=== PATIENT | female | born 1975 | race Caucasian/White ===

== ENCOUNTER 2020-10-18 10:49 | Emergency (ER) | payer OTHER, SELFPAY ==
--- NOTE | ~2020-10-18 | CT_ITS ---
EXAMINATION: CT abdomen pelvis w con EXAM DATE: 10/18/2020 11:48 INDICATION: Left flank pain. TECHNIQUE: Spiral CT of the abdomen and pelvis was performed following intravenous injection of 100 m L Omnipaque 350. Axial, coronal and sagittal images were reviewed. The dose-length product (DLP) fo r this examination was 955.88 mGy-cm. The exposure was tailored according to patient size (auto mA e xposure control), and iterative reconstruction (ASIR) was used as additional dose reduction technique . Comparison is made to prior examination from 06/14/2015. FINDINGS: Small liver cysts, largest in the left liver lobe lateral segment at 2.4 cm. There are cho lecystectomy clips. Portal and splenic veins are patent. Kidneys enhance symmetrically. There is n o hydronephrosis. There is IUD which appears to be centrally located within the endometrium, expect ed position. The bladder is unremarkable. There is no retroperitoneal or pelvic lymphadenopathy. The appendix is normal. The stomach and small bowel are unremarkable. There is expected amount of c olonic stool. No free intraperitoneal gas. The heart is normal in size. There are no pericardial or pleural effusions. The lung bases are unremarkable. There are no osteoblastic or osteolytic les ions identified. IMPRESSION: 1. No acute intra-abdominal findings. Reviewed, dictated and finalized at location B. [facility]INGER
--- NOTE | ~2020-10-18 | XR_ITS ---
EXAMINATION: XR chest 2V DATE: 10/18/2020 12:03 INDICATION: Left chest pain. TECHNIQUE: Frontal and lateral views of the chest were obtained. COMPARISON: CT abdomen and pelvis 10/18/2020 FINDINGS: The chest demonstrates clear lungs without pneumonia, pleural effusion, or pneumothorax. Th e heart size is normal. Surgical clips in the right upper quadrant are likely from cholecystectomy. IMPRESSION: 1. No acute cardiopulmonary disease. Reviewed, dictated and finalized at location A. [employer]
[2020-10-18 11:01] VITALS: BP 148/95; PULSE 98; RESP 17; TEMP 36.6; O2SAT 98
--- NOTE | 2020-10-18 11:11 | ED.ABDPAIN ---
HPI - Abdominal Pain General Chief Complaint: Abdominal Pain Stated Complaint: I think my spleen is enlarged Time Seen by Provider: 10/18/20 11:11 Source: patient Mode of arrival: ambulatory Limitations: no limitations History of Present Illness HPI narrative: Patient is a 44-year-old female who presents for evaluation left-sided upper abdominal pain, lower chest pain. Patient states pain has been present for nearly a week, constant in nature. It is worsened with movement. Patient denies any recent heavy bending or lifting. She does report occasional radiation of the pain to her back. She does report pain when she takes a deep breath but denies any chest pain or shortness of breath. No fever, chills, cough or rhinorrhea. No pain history such as this before. No lower flank pain or lower abdominal pain. No dysuria or hematuria. Patient denies any recent illnesses. No recent sick contacts. Patient being treated for H. pylori by primary care physician was not sure if this could be a sequelae of that or if she had an enlarged spleen. Patient denies any history of splenic problems or diagnosis of mononucleosis. Related Data Allergies Allergy/AdvReac Type Severity Reaction Status Date / Time No Known Allergies Allergy Verified 10/18/20 11:00 Review of Systems Review of Systems: Narrative: CONSTITUTIONAL: Denies fever, chills, or sweats. ENT: Denies rhinorrhea, congestion, sore throat, or otalgia. CARDIOVASCULAR: Reports lower left-sided chest pain without palpitations or edema RESPIRATORY: Denies cough or dyspnea. Reports pain when she takes a deep breath on the left side. GASTROINTESTINAL reports left upper abdominal pain without nausea, vomiting or diarrhea GENITOURINARY: Denies dysuria or hematuria. SKIN: Denies rash or itching. MUSCULOSKELETAL: Radiation of the pain to the left flank at times, denies other joint pain, or myalgia. NEUROLOGIC: Denies headache, numbness, or weakness. PSYCHIATRIC: History of depression [facility] Past Medical History Medical History Depression Surgical History Surgical History (Updated 10/18/20 @ 11:28 by Antonia Michelle MD) Hx of cholecystectomy Family History Family History (Updated 10/05/14 @ 13:59 by DOCTOR UNKNOWN) Father Family history of coronary artery disease Family history of congestive heart failure Other Diabetes mellitus Social History Social History Smoking status: Never smoker Smoking end date: 11/24/00 Alcohol intake: current Gender identity (if verbalized by the patient): Female Exam Narrative: Exam Narrative: GENERAL: Awake, alert, conversant HEAD: Normocephalic, atraumatic. EYES: PERRLA and EOMI. ENT: Nares clear, no rhinorrhea or epistaxis. Mucous membranes moist. NECK: Supple. CHEST: No respiratory distress, breathing even and non labored HEART: Regular rate, sinus rhythm ABDOMEN:Non distended, non tender throughout all 4 quadrants, pain is not reproducible on exam EXTREMITIES: Normal range of motion. No edema. SKIN: Warm, dry, no rash. No vesicles or ecchymoses overlying the area. NEURO:No focal deficits. Alert and oriented x3. Patient is ambulatory with a narrow base, steady gait. Course Vital Signs Vital signs: Vital Signs Temperature 36.6 C 10/18/20 11:01 Pulse Rate 98 10/18/20 11:01 Respiratory Rate 17 10/18/20 11:01 Blood Pressure 148/95 H 10/18/20 11:01 Pulse Oximetry 98 10/18/20 11:01 Temperature 36.6 C 10/18/20 11:01 Pulse Rate 98 10/18/20 11:01 Respiratory Rate 17 10/18/20 11:01 Blood Pressure 148/95 H 10/18/20 11:01 Pulse Oximetry 98 10/18/20 11:01 MDM - Abdominal Pain MDM Narrative Medical decision making narrative: Patient presenting for evaluation of left upper abdominal pain, left lower chest pain chronic over the past several days. The time of initial assessment, ABCs
[2020-10-18 11:14] LABS: Add Urine Microscopic? YES; Appearance Urine Clear (Clear); Bacteria Urine Trace /hpf; Bilirubin Urine Negative (Negative); Blood Urine Negative (Negative); Color Urine Yellow (Yellow); Glucose Urine UA Negative (Negative); Ketones Urine Negative (Negative); Leukocyte Esterase Ur Trace LEU/UL (Negative); Nitrate Urine Negative (Negative); Protein Urine Negative (Negative); RBC Urine 0-2 /hpf (0-2); Specific Grav Ur 1.015 (1.001-1.035); Squamous Epithelial Cell Urine Many /hpf (Few); Urobilinogen Urine Negative mg/dL (<2.0); WBC Urine 0-3 /hpf
--- NOTE | 2020-10-18 11:20 | PC.NURSE ---
patient brought back to ED room H3 with c/o LUQ pain since last . see triage notes. no change in patient's condition since triage completed. resting on stretcher. SL inserted. labs drawn. UA already sent to lab. patient denies known fever. denies urinary symptoms. denies N/V/D. updated on current treatment plan. call light in reach.
[2020-10-18 11:31] LABS: Basophils Percent Auto 0.2 % (0.2-1.2); Eosinophils Absolute Auto 0.1 K/mm3 (0-0.3); Eosinophils Percent Auto 0.6 % (0-4.4); Hematocrit 43.4 % (37.0-47.0); Hemoglobin 14.3 g/dL (12.0-15.0); Immature Granulocyte Absolute 0.03 K/mm3 (0.00-0.031); Immature Granulocyte Percent A 0.3 % (0-0.5); Lymphocytes Absolute Auto 2.78 K/mm3 (0.9-3.2); Lymphocytes Percent Auto 29.3 % (18.3-44.2); Mean Corpuscular HGB Conc 32.9 g/dl (32-36); Mean Corpuscular Hemoglobin 29.7 pg (26-34); Mean Corpuscular Volume 90.2 fl (80-100); Mean Platelet Volume 8.6 fl (7.4-10.4); Monocytes Absolute Auto 0.5 K/mm3 (0.1-0.6); Monocytes Percent Auto 4.8 % (2.6-8.5); Neutrophils Absolute Auto 6.2 K/mm3 (1.3-6.7); Neutrophils Percent Auto 64.8 % (45.5-73.1); Platelet Count Result 508 k/mm3 (150-375); Red Blood Count 4.81 M/mm3 (4.2-5.4); Red Cell Distribution Width 13.1 % (11.5-14.5); White Blood Count 9.5 K/mm3 (4.5-10.0)
[2020-10-18] MEDS: SODIUM CHLORIDE 0.9% IV 1,000 ML 999 ML IV CONT (11:32)
--- NOTE | 2020-10-18 11:35 | PC.NURSE ---
patient to CT via wheelchair.
[2020-10-18 11:42] LABS: Alanine Aminotransferase 15 U/L (4-35); Albumin Level 4.8 g/dL (3.5-5.1); Alkaline Phosphatase 79 U/L (38-126); Anion Gap 9 mmol/L (8-16); Aspartate Amino Transferase 23 U/L (14-36); Bilirubin,Total 0.3 mg/dL (0.2-1.3); Blood Urea Nitrogen 10 mg/dL (7-17); Calcium 9.2 mg/dL (8.4-10.2); Carbon Dioxide 29 mmol/L (22-30); Chloride 102 mmol/L (98-107); Estimated CRCL calculation 97 ml/min; Estimated Glomerular Filt Rate > 60; Glucose 115 mg/dL (65-105); Lipase 62 U/L (23-300); Potassium 3.9 mmol/L (3.4-5.0); Sodium 140 mmol/L (137-145)
[2020-10-18 11:54] LABS: INR 0.9; Partial Thromboplastin Time 29.5 SECONDS (22.3-36.8); Prothrombin Time 13.2 Seconds (11.1-14.7)
[2020-10-18 11:54] LABS: Troponin I < 0.012 ng/mL (0.000-0.034)
[2020-10-18 12:02] LABS: D Dimer < 0.22 ug/mL (<0.48)
--- NOTE | 2020-10-18 12:16 | ECG_ITS ---
Measurements Intervals [place] Rate: 73 P: 26 ID: [id number] QRS: 50 QRSD: 97 T: 14 QT: 375 QTc: 414 Interpretive Statements SINUS RHYTHM NORMAL ECG Electronically Signed On 10-18-2020 12:27:15 DIRECTOR [employer]ACTOR [employer] by Yoni Camarena D.O.
--- NOTE | 2020-10-18 12:30 | PC.NURSE ---
patient back from CT. EKG done.
== END 2020-10-18 12:35 | disposition home or self-care (01) ==
PROVIDERS: Emergency Medicine; Emergency Provider Emergency Medicine
DX: R10.32 Left lower quadrant pain (principal)
CPT/HCPCS: 36415; 71046; 74177; 80053; 81001; 81025; 83690; 84484; 85025; 85380; 85610; 85730; 93005; 96360; 99284; J7030; Q9967

== ENCOUNTER 2021-06-16 07:24 | Emergency (ER) | payer BC, SELFPAY ==
[2021-06-16 07:27] VITALS: BP 162/86; PULSE 100; RESP 18; TEMP 36.2; O2SAT 100
--- NOTE | 2021-06-16 07:42 | ED.SKABFB ---
HPI - Skin/Abscess/Foreign Bdy General Chief complaint: Skin/Abscess/Foreign Body Stated complaint: rash Time Seen by Provider: 06/16/21 07:42 History of Present Illness HPI narrative: Rash to the right forehead for the at least 1 week. Painful, feels like electric shocks. Vesicular. She was seen at urgent care and started on a prednisone taper. She did have chicken pox when she was a child. No eye pain, vision change, fever. Additionally she does report unintentional weight loss, early satiety and pain after eating. I discussed this with her and she will address this with her PCP Related Data Home Medications Medication Instructions Recorded Confirmed amlodipine 06/16/21 oxybutynin chloride mg PO 06/16/21 prednisone 06/16/21 Allergies Allergy/AdvReac Type Severity Reaction Status Date / Time No Known Allergies Allergy Verified 06/16/21 07:29 Review of Systems Review of Systems: All systems reviewed & are unremarkable except as noted in HPI and below Constitutional: Constitutional: Denies chills, Denies fever(s) and Denies weakness Eyes: Eyes: Reports no additional eye complaints, Denies change in vision and Denies photophobia ENT: Denies sore throat Cardiovascular: Cardiovascular: Denies chest pain Respiratory: Respiratory: Denies dyspnea Gastrointestinal: Gastrointestinal: Denies nausea and Denies vomiting Neurologic: Reports system reviewed and no additional complaints, except as documented PMF Past Medical History Medical History Depression Surgical History Surgical History Hx of cholecystectomy Family History Family History Father Family history of coronary artery disease Family history of congestive heart failure Other Diabetes mellitus Social History Social History Smoking status: Never smoker Smoking end date: 11/24/00 Alcohol intake: current Gender identity (if verbalized by the patient): Female Exam Const: General: healthy appearing, no acute distress and alert Orientation/consciousness: patient oriented x3 HENMT: Other: Vesicular rash in V1 distribution. Eyes: Conjunctivae: conjunctivae normal Pupils: Equal, round and reactive pupils present EOM: EOMs intact bilaterally Neck: Neck: normal visual inspection Resp: Effort & Inspection: normal respiratory effort Auscultation: clear to auscultation bilaterally, no rales, no rhonchi and no wheezes Cardio: Jugular venous distension: no JVD Rate: regular rate Rhythm: regular rhythm Heart sounds: no murmurs Skin: General skin exam: normal color Neuro: General: patient oriented x3, moves all extremities, no focal motor deficits and CN's II-XI intact bilaterally Speech: normal speech Extrem: General: no edema Psych: Appearance: well kempt Affect: normal affect Course Vital Signs Vital signs: Vital Signs Temperature 36.2 C L 06/16/21 07:27 Pulse Rate 100 06/16/21 07:27 Respiratory Rate 18 06/16/21 07:27 Blood Pressure 162/86 H 06/16/21 07:27 Pulse Oximetry 100 06/16/21 07:27 Temperature 36.2 C L 06/16/21 07:27 Pulse Rate 100 06/16/21 07:27 Respiratory Rate 18 06/16/21 07:27 Blood Pressure 162/86 H 06/16/21 07:27 Pulse Oximetry 100 06/16/21 07:27 MDM - Skin/Abscess/Foreign Bdy Differential Diagnosis Differential diagnosis: Likely herpes zoster and contact dermatitis Medical Records Attestation: I reviewed the patient's medical records. Discharge Plan Discharge Clinical Impression: Herpes zoster Qualifiers: Herpes zoster complications: without complications Qualified Code(s): B02.9 - Zoster without complications Patient Disposition: Home, Self-Care Condition: Stable Instructions: Shingles (ED) Prescriptions: New
== END 2021-06-16 08:57 | disposition home or self-care (01) ==
PROVIDERS: Emergency Provider Emergency Medicine
DX: B02.9 Zoster without complications (principal)
CPT/HCPCS: 99283

== ENCOUNTER 2021-08-08 16:51 | Outpatient (CLI) | payer BC, SELFPAY ==
--- NOTE | ~2021-08-08 | MM_ITS ---
EXAMINATION: MM screening destiny BI w seven HISTORY: Screening TECHNIQUE: Craniocaudal and mediolateral oblique 3-D tomosynthesis images were obtained and synthetic 2-D images were generated. CAD analysis was submitted and interpreted. COMPARISON: No prior mammogram is available for comparison at this institution. BREAST PARENCHYMAL COMPOSITION: There are scattered areas of fibroglandular density. FINDINGS: There is no evidence of suspicious mass, calcification, or architectural distortion to sugg est malignancy in either breast. There has been no suspicious interval change. IMPRESSION: 1. No mammographic evidence of malignancy. 2. Recommend routine screening mammography in one year. BI-RADS Category 1: Negative Reviewed, dictated and finalized at location A.
== END 2021-08-08 16:52 | disposition home or self-care (01) ==
LOC: ANHIMG 16:53
PROVIDERS: PCP Family Medicine; Visit Provider Family Medicine
DX: Z12.31 Encounter for screening mammogram for malignant neoplasm of breast (principal)
CPT/HCPCS: 77063; 77067

== ENCOUNTER 2022-01-14 00:22 | Day surgery (SDC) | payer BC, SELFPAY ==
[2021-12-14 14:31] VITALS: BMI 28.5
--- NOTE | 2022-01-08 14:15 | PC.NURSE ---
PT DENIES ANY CHANGES IN HEALTH OR MEDICATIONS SINCE PREVIOUS INTERVIEW. TIMES REVIEWED ALL QUESTIONS ANSWERED
[2022-01-08 14:17] VITALS: BMI 28.5
[2022-01-14 06:57] VITALS: BP 111/68; PULSE 90; RESP 18; TEMP 36.9; O2SAT 100
[2022-01-14] MEDS: LACTATED RINGERS 1,000 ML 150 ML IV CONT (07:09)
--- NOTE | 2022-01-14 07:10 | WPDANESEPPF ---
Anes - Initial Pre Proc Eval Procedure: Operation Date: 01/14/22 08:00 Proposed Procedures p Esophagogastroduodenoscopy - Bryan Hung MD Date/Time: 01/14/22 07:10 Surgeon: Bryan Hung MD Pre Op Diagnosis: Epigastric pain, bloating Patient Data Age: 46 Gender: F Height: 1.6 m Weight: 74.1 kg Last Vital Signs Temp 36.9 C 01/14/22 06:57 Pulse 90 01/14/22 06:57 Resp 18 01/14/22 06:57 BP 111/68 01/14/22 06:57 Pulse Ox 100 01/14/22 06:57 Allergies Allergy/AdvReac Type Severity Reaction Status Date / Time No Known Allergies Allergy Verified 01/14/22 06:56 Home Medications Medication Instructions Recorded Confirmed Type oxybutynin chloride 5 mg 5 mg PO DAILY tablet 06/19/21 12/14/21 History tablet,extended release 24 hr amlodipine 5 mg tablet 5 mg PO DAILY #90 tablet 07/23/21 12/14/21 Rx phentermine 18.75 mg PO DAILY 12/14/21 12/14/21 History Patient hx anesthesia problems: none Family hx anesthesia problems: none Results Review: All pre-operative results and documents have been reviewed as part of the pre-operative evaluation. [facility] Past Medical History Medical History Acid reflux Anxiety Depression Essential (primary) hypertension History of Helicobacter pylori infection 09/2020 OAB (overactive bladder) Surgical History Surgical History Hx of cholecystectomy (~2016) Family History Family History Father Family history of coronary artery disease Family history of congestive heart failure Mother Anxiety Other Diabetes mellitus Social History Social History Smoking status: Former smoker Tobacco type: cigarettes Smoking end date: 11/24/00 Alcohol intake: current Alcohol use details: 1 per month Living arrangements: with family Gender identity (if verbalized by the patient): Female Spiritual care concerns: No Anes - Eval Final PreProcedure Day of Procedure 01/14/22 07:10 Patient weight: overweight Heart: regular rate and rhythm Airway: Mallampati scale Neurological: alert and oriented Last oral intake: >/= 8 hours ASA classification: II Emergent: no Anesthetic plan: proceed Anesthesia type and monitoring: general GIVS and standard monitoring Results Review: All pre-operative results and documents have been reviewed as part of the pre-operative evaluation. Informed Consent: The patient's anesthetic plan and its attendant risks and benefits were discussed with the patient/family/POA. Questions were solicited and answers provided to the satisfaction of the patient/family/POA.
--- NOTE | 2022-01-14 07:44 | PM.HPGS ---
History of Present Illness History of Present Illness Consent: Risks, benefits, and alternatives have been discussed and questions answered. Patient agrees to proceed with procedure. Chief complaint: Epigastric pain, bloating Narrative: Brandee Hair is a 46 year old female with previous H pylori but treated and eradicated, she has intermittent epigastric discomfort better with omeprazole, also bloating. Review of Systems Constitutional: Constitutional: Denies headache(s) and Denies weakness Eyes: Eyes: Denies blurry vision ENT: Reports Normal hearing present, Denies headache(s) and Denies neck pain Cardiovascular: Cardiovascular: Denies chest pain and Denies dyspnea Respiratory: Respiratory: Denies dyspnea Gastrointestinal: Gastrointestinal: Reports no additional gastrointestinal complaints Genitourinary: Genitourinary: Denies dysuria Musculoskeletal: Musculoskeletal: Denies neck pain Integumentary/Breasts: Skin/Breast: Denies dry skin Neurologic: Reports Normal hearing present, Denies headache(s) and Denies weakness Psychiatric: Psychiatric: Denies anxiety Endocrine: Endocrine: Denies change in body appearance Hematologic/Lymphatic: Hematologic/Lymphatic: Denies easy bleeding Allergic/Immunologic: Allergic/Immunologic: Denies urticaria PMF Past Medical History Medical History (Updated 01/14/22 @ 07:45 by Bryan Hung MD) Acid reflux Anxiety Bloating Depression Essential (primary) hypertension History of Helicobacter pylori infection 09/2020 OAB (overactive bladder) Surgical History Surgical History Hx of cholecystectomy (~2017) Family History Family History Father Family history of coronary artery disease Family history of congestive heart failure Mother Anxiety Other Diabetes mellitus Social History Social History Smoking status: Former smoker Tobacco type: cigarettes Smoking end date: 11/24/00 Alcohol intake: current Alcohol use details: 1 per month Living arrangements: with family Gender identity (if verbalized by the patient): Female Spiritual care concerns: No Meds Home Medications and Allergies Home Medications Medication Instructions Recorded Confirmed Type oxybutynin chloride 5 mg 5 mg PO DAILY tablet 06/19/21 12/14/21 History tablet,extended release 24 hr amlodipine 5 mg tablet 5 mg PO DAILY #90 tablet 07/23/21 12/14/21 Rx phentermine 18.75 mg PO DAILY 12/14/21 12/14/21 History Allergies Allergy/AdvReac Type Severity Reaction Status Date / Time No Known Allergies Allergy Verified 01/14/22 06:56 Vital Signs Vital Signs - 24 hr 01/14/22 06:57 Temperature 98.5 F Pulse Rate 90 Respiratory Rate 18 Blood Pressure 111/68 Pulse Oximetry 100 Exam Const: General: comfortable and no acute distress HENMT: General nose exam: Normal nares present Eyes: General: appearance normal, both eyes and all related structures Neck: Neck: no JVD Resp: Auscultation: clear to auscultation bilaterally Cardio: Rate: regular rate Rhythm: regular rhythm GI: Inspection: non-distended GI Palp: Yes Soft to palpation Skin: General skin exam: normal color Neuro: General: gait normal Speech: normal speech Extrem: General: normal to inspection Psych: Mental Status: mental status grossly normal Assessment and Plan Assessment and plan (1) Epigastric pain: Code(s): R10.13 - Epigastric pain Status: Acute Assessment and Plan: egd with bx (2) Bloating: Code(s): R14.0 - Abdominal distension (gaseous) Status: Acute Assessment and Plan: will check for celiac
[2022-01-14 07:55] VITALS: BP 106/62; PULSE 79; RESP 15; O2SAT 100
[2022-01-14 08:05] VITALS: BP 102/65; PULSE 74; RESP 18; O2SAT 99
[2022-01-14 08:15] VITALS: BP 118/71; PULSE 68; RESP 15; O2SAT 100
== END 2022-01-14 08:28 | disposition home or self-care (01) ==
PROVIDERS: PCP Family Medicine; Visit Provider Internal Medicine Gastroenterology
PROC: 0DJ08ZZ Inspection of Upper Intestinal Tract, Via Natural or Artificial Opening Endoscopic (ICD-10-PCS; CPT 43235; principal; 2022-01-14 08:00)
DX: R10.13 Epigastric pain (principal); K29.60 Other gastritis without bleeding; R14.0 Abdominal distension (gaseous); F41.9 Anxiety disorder, unspecified; F32.9 Major depressive disorder, single episode, unspecified; N32.81 Overactive bladder; I10 Essential (primary) hypertension; K21.9 Gastro-esophageal reflux disease without esophagitis; Z86.19 Personal history of other infectious and parasitic diseases; Z90.49 Acquired absence of other specified parts of digestive tract; Z87.891 Personal history of nicotine dependence
CPT/HCPCS: 43239; 87081; 88305; J2001; J2704; J7120

== ENCOUNTER 2023-03-31 17:01 | Emergency (ER) | payer OTHER, SELFPAY ==
--- NOTE | ~2023-03-31 | XR_ITS ---
EXAM: XR shoulder RT min 2V DATE: 03/31/2023 18:32 HISTORY: right shoulder pain, nki . COMPARISON: None available. FINDINGS: Normal mineralization. No fracture or dislocation. No lytic or blastic lesion. Mild AC tera nt and glenohumeral joint degenerative change. Inferior AC joint/acromial osteophytosis which could c ontribute to osseous outlet compromise. No erosion or periosteal change. Soft tissues within normal l imits. IMPRESSION: Polyarticular right shoulder osteoarthritis. No acute finding. Reviewed, dictated and finalized at location K.
[2023-03-31 17:09] VITALS: BP 138/83; PULSE 99; RESP 16; TEMP 37.1; O2SAT 99
--- NOTE | 2023-03-31 20:12 | ED.GENADULT ---
HPI - General Adult General Chief complaint: Unspecified Stated complaint: Right shoulder pain Time Seen by Provider: 03/31/23 19:52 History of Present Illness HPI narrative: 47-year-old female here for evaluation of right shoulder pain x4 months. Patient states the pain acutely worsened yesterday, states she is losing sleep due to the pain. Has been taking ibuprofen without relief, last took at 8 PM yesterday. She does go to the gym frequently. She has not gone to the gym since her pain worsened. Pain is located around her right shoulder girdle. It is worse with certain movements and alleviated at rest. No trauma to the shoulder. No numbness or tingling or neck pain. No weakness in the limb. Related Data Home Medications Medication Instructions Recorded Confirmed oxybutynin chloride 5 mg 5 mg PO DAILY 06/19/21 04/08/22 tablet,extended release 24 hr Allergies Allergy/AdvReac Type Severity Reaction Status Date / Time No Known Allergies Allergy Verified 03/31/23 20:16 Review of Systems Review of Systems: Gen: Denies fevers or chills Eyes: Denies eye pain or visual change ENT: Denies congestion Respiratory: Denies shortness of breath or cough CV: Denies chest pain or palpitations GI: Denies abdominal pain nausea, emesis or diarrhea denies burning, urgency, frequency or hematuria Musculoskeletal: Reports right shoulder pain Neuro: Denies numbness, tingling, weakness or focal weakness Skin: Denies rash Except as documented, all other systems reviewed and negative [facility] Past Medical History Medical History Acid reflux Anxiety Bloating Depression Essential (primary) hypertension GERD without esophagitis History of Helicobacter pylori infection 09/2020 OAB (overactive bladder) Prediabetes Surgical History Surgical History Hx of cholecystectomy (~2016) Family History Family History Father Family history of coronary artery disease Family history of congestive heart failure Mother Anxiety Other Diabetes mellitus Social History Social History Smoking status: Former smoker Tobacco type: cigarettes Smoking end date: 11/24/00 Alcohol intake: current Alcohol use details: 1 per month Living arrangements: with family Gender identity (if verbalized by the patient): Female Spiritual care concerns: No Exam Narrative: APPEARANCE: Well appearing, no pain in distress, well-nourished. Head: Normocephalic and atraumatic. EYES: PERRLA/EOMI, conjunctivae clear NOSE: No nasal drainage EARS: External ear normal in appearance THROAT: Oropharynx is clear. Mucous membranes are moist. NECK: Supple. No adenopathy, no masses. RESPIRATORY: Airway patent, respirations nonlabored. Clear to auscultation bilaterally, no rales, rhonchi, wheezing. CARDIOVASCULAR: 2+ radial pulses bilaterally. Regular rate and rhythm without murmurs, rubs, or gallops. ABDOMINAL: Normoactive bowel sounds. Soft, nontender, nondistended. No rebound tenderness or guarding. MUSCULOSKELETAL: No midline tenderness to the C, T or L-spine. No bony tenderness palpation feeling the clavicle, humeral head or olecranon. Positive empty cans test. Mccarthy test is positive as well. Pain with adduction and external rotation of the shoulder. NEURO: Normal speech. No focal neurologic deficits. SKIN: Skin is warm and dry. No rashes. PSYCHIATRIC: Normal affect/mood.. Course Vital Signs Vital signs: Vital Signs Temperature 98.7 F 03/31/23 17:09 Pulse Rate 99 03/31/23 17:09 Respiratory Rate 16 03/31/23 17:09 Blood Pressure 138/83 03/31/23 17:09 Pulse Oximetry 99 03/31/23 17:09 Temperature 98.7 F 03/31/23 17:09 Pulse Rate 99 03/31/23 17:09 Respiratory
[2023-03-31] MEDS: CYCLOBENZAPRINE HCL 5 MG TABLET PO (20:17)
[2023-03-31] MEDS: KETOROLAC 30 MG/ML VIAL (*BKC) IM (20:17)
[2023-03-31] MEDS: LIDOCAINE 5% PATCH 1 PATCH TRANSDERM (20:18)
== END 2023-03-31 20:27 | disposition home or self-care (01) ==
PROVIDERS: Emergency Provider Physician Assistant; PCP Family Medicine
DX: S46.001A Unspecified injury of muscle(s) and tendon(s) of the rotator cuff of right shoulder, initial encounter (principal); I10 Essential (primary) hypertension; N32.81 Overactive bladder; R73.03 Prediabetes; K21.9 Gastro-esophageal reflux disease without esophagitis; Z87.891 Personal history of nicotine dependence; Z90.49 Acquired absence of other specified parts of digestive tract; X58.XXXA Exposure to other specified factors, initial encounter
CPT/HCPCS: 73030; 96372; 99283; A9270; J1885

== ENCOUNTER 2023-04-30 10:17 | Outpatient (CLI) | payer OTHER, SELFPAY ==
--- NOTE | ~2023-04-30 | MR_ITS ---
MRI of the right shoulder Technique: Axial proton-density fat-sat images, coronal proton density fat-sat and T2 fat-sat images, and sagittal T1-weighted and T2 fat-sat images were acquired. Clinical History: Pain, rotator cuff tear Findings: There is minimal AC joint degenerative change. Coracoclavicular, coracoacromial, and coraco humeral ligaments appear intact. There is a 1.2 x 1.3 cm area of full-thickness tearing at the distal, anterior supraspinatus tendon i nsertion. Infraspinatus tendon is intact, without partial or full-thickness tear. Subscapularis tendo n tendon demonstrates a focal low-grade interstitial tear distally, with background moderate tendinos is. Tendon of long head of the biceps is intact. No labral tear evident. Inferior glenohumeral ligament is intact. There are small glenohumeral joint effusion with fluid pass ing through the rotator cuff defect into the subacromial/subdeltoid bursa. No muscle atrophy or edema . No degenerative change of the glenohumeral joint. Impression: 1.2 x 1.3 cm full-thickness tear at the distal, anterior supraspinatus tendon insertion. Focal low-grade interstitial partial tear at the distal subscapularis tendon with moderate tendinosis . Other findings, as above. Reviewed, dictated and finalized at [facility]. Impression: 1.2 x 1.3 cm full-thickness tear at the distal, anterior supraspinatus tendon i nsertion. Focal low-grade interstitial partial tear at the distal subscapularis tendon wi th moderate tendinosis. Other findings, as above.
== END 2023-04-30 10:18 | disposition home or self-care (01) ==
PROVIDERS: PCP Family Medicine; Visit Provider Orthopaedic Surgery
DX: S46.811A Strain of other muscles, fascia and tendons at shoulder and upper arm level, right arm, initial encounter (principal); M75.81 Other shoulder lesions, right shoulder; X58.XXXA Exposure to other specified factors, initial encounter
CPT/HCPCS: 73221

== ENCOUNTER 2023-05-05 10:43 | Outpatient (CLI) | payer OTHER, SELFPAY ==
--- NOTE | 2023-05-05 10:30 | ECG_ITS ---
Measurements Intervals [place] Rate: 87 P: 46 PA: 138 QRS: 59 QRSD: 87 T: 23 QT: 340 QTc: 411 Interpretive Statements SINUS RHYTHM BASELINE ARTIFACT NORMAL ECG COMPARED TO ECG 10/18/2020 12:21:55 NO SIGNIFICANT CHANGES Electronically Signed On 05-05-2023 17:07:10 CDT by Brennan Myles M.D.
== END 2023-05-05 10:44 | disposition home or self-care (01) ==
LOC: ANHSURGERY 10:46
PROVIDERS: PCP Family Medicine; Visit Provider Orthopaedic Surgery
DX: I10 Essential (primary) hypertension (principal)
CPT/HCPCS: 93005

== ENCOUNTER 2023-05-16 00:36 | Day surgery (SDC) | payer OTHER, SELFPAY ==
[2023-05-02 15:16] VITALS: BMI 25.7
--- NOTE | 2023-05-02 15:21 | PC.NURSE ---
Report to the Outpatient Waiting Room, entrance under the green pavilion located off [facility], at time 8:30 on date 05/14/23. Planned Procedure Time: 10:30. Time changes happen often and if your time is changed the preop area will call you the afternoon before. - You and your visitor will be asked to self-screen and do not enter if you have any COVID symptoms. - A mask is optional within the hospital at this time. Patients may have clear liquids (water, carbonated beverages, clear teas, apple juice) until 3 hours prior to surgery (7:30) with a maximum of 20 ounces. - No food from midnight until time of surgery Take the following medications with a SIP of water the morning of surgery: AMLODIPINE DO NOT STOP ANY OF YOUR OTHER PRESCRIPTION MEDICATIONS PRIOR TO SURGERY ?EXCEPT THE FOLLOWING Medications to discontinue per physician: VITAMINS/SUPPLEMENTS Date to take last dose: 05/10/23 Please no make-up, nail swazi, hairspray, perfume, deodorant, or body powder the day of surgery. No jewelry (including any body piercings) or valuables the day of surgery, leave them at home. Please take a shower or bath the night before, or the morning of, surgery with an antibacterial soap. Wear comfortable, loose fitting clothing. - Jewelry must be removed prior to entering the operating room. Rings and piercings that are not removed may be cut off. - The hospital will not accept responsibility for valuables. - Please leave all valuables, including medications, at home the day of surgery. If you are going home after surgery, a licensed regional company truck driver must drive you home. - NO public transportation without another adult if you receive anesthesia. - We recommend that an adult stay with you for 24 hours following discharge. - We also recommend that you do not drive, make important decision, drink alcoholic beverages, or take any drugs that were not prescribed by your health care provider for at least 24 hours after your discharge time. Follow any additional instructions given to you from your surgeon. If you or anyone in your household have experienced Covid symptoms in the past week, please notify your surgeon or the nurse liaison at the phone number below for possible testing. Telephone instructions given to PT Deion PATEL and asked if any additional questions and then verbalized understanding. Patient advised to call surgeon office or pre surgery nurse liaison [phone] if any additional questions.
--- NOTE | 2023-05-08 13:21 | PC.NURSE ---
pt given new date and time for surgery, denies any change in health or medication. questions answered
--- NOTE | 2023-05-08 13:22 | PC.NURSE ---
Report to the Outpatient Waiting Room, entrance under the green pavilion located off [facility], at time _0600 _ on date _05/16/23. Planned Procedure Time: __0730__. Time changes happen often and if your time is changed the preop area will call you the afternoon before. - You and your visitor will be asked to self-screen and do not enter if you have any COVID symptoms. - A mask is optional within the hospital at this time. Patients may have clear liquids (water, carbonated beverages, clear teas, apple juice) until 3 hours prior to surgery with a maximum of 20 ounces. - No food from midnight until time of surgery - Infants may have breast milk until 4 hours before surgery, infant formula 6 hours prior to surgery. - Children will be allowed to drink immediately following surgery. If applicable, please bring a bottle or sippy cup to assist with drinking. Juice, water, soda, and popsicles are readily available. For infants on formula, please bring formula the day of surgery. Pacifiers are allowed. Take the following medications with a SIP of water the morning of surgery: amlodipine DO NOT STOP ANY OF YOUR OTHER PRESCRIPTION MEDICATIONS PRIOR TO SURGERY ?EXCEPT THE FOLLOWING Medications to discontinue per physician stop vitamins and suppliments 05/12/23 Date to take last dose Please no make-up, nail liberian, hairspray, perfume, deodorant, or body powder the day of surgery. No jewelry (including any body piercings) or valuables the day of surgery, leave them at home. Please take a shower or bath the night before, or the morning of, surgery with an antibacterial soap. Wear comfortable, loose fitting clothing. Children are encouraged to wear pajamas. - Jewelry must be removed prior to entering the operating room. Rings and piercings that are not removed may be cut off. - The hospital will not accept responsibility for valuables. - Please leave all valuables, including medications, at home the day of surgery. If you are going home after surgery, a licensed team otr truck driver must drive you home. - NO public transportation without another adult if you receive anesthesia. - We recommend that an adult stay with you for 24 hours following discharge. - We also recommend that you do not drive, make important decision, drink alcoholic beverages, or take any drugs that were not prescribed by your health care provider for at least 24 hours after your discharge time. For Pediatric surgeries, we recommend two adults accompany the child home. Follow any additional instructions given to you from your surgeon. If you or anyone in your household have experienced Covid symptoms in the past week, please notify your surgeon or the nurse liaison at the phone number below for possible testing. Telephone instructions given to patient and asked if any additional questions and then verbalized understanding. Patient advised to call surgeon office or pre surgery nurse liaison [phone] if any additional questions.
[2023-05-16] VITALS (10 sets, daily range): BP systolic 99–127; BP diastolic 61–81; PULSE 65–102; RESP 16–24; TEMP 36.7; O2SAT 94–100
[2023-05-16] MEDS: ACETAMINOPHEN 500 MG TABLET 1000 MG PO (06:53)
[2023-05-16] MEDS: CELECOXIB 200 MG CAPSULE PO (06:53)
[2023-05-16] MEDS: LACTATED RINGERS 1,000 ML 30 ML IV CONT ×2 (06:55→10:26)
--- NOTE | 2023-05-16 07:13 | WPDHPUPDATE1 ---
History and Physical Update Update Date/Time: 05/16/23 07:13 History and Physical has been reviewed, including an updated exam of the patient. There are NO changes in the patient's condition. Risks, benefits, and alternatives have been discussed and questions answered. Patient agrees to proceed with procedure.
--- NOTE | 2023-05-16 07:15 | WPDANESPNB ---
Anes - Peripheral Nerve Block Date/Time: 05/16/23 07:15 I have discussed with the patient/family/POA the placement of a peripheral nerve block for post-operative pain management, including associated risks, benefits, complications, and side effects. Alternative methods of post-operative analgesia were detailed. Questions were solicited and answers provided to the satisfaction of the patient/family/POA. Time-Out: A pre-procedural Time-Out was completed immediately before starting the procedure and confirmed: Patient Identification, Site, Procedure, Patient Position and the Availability of Requisite Equipment. Clinical Indications: Acute post-operative pain management requested by the operative surgeon. Nerve Block Insertion Note Anes-nerve block: supraclavicular right Patient position: supine Skin prep: chlorhexidine Needle: 22 gauge, stimulating, insulated echogenic needle. Needle length: 80 mm Technique: ultrasound (in plane) Injectate: bupivacaine 0.25% with epi 5 mcg/ml (20cc) Observations: tolerated well Complications: none Procedure start time:: 725 Procedure end time:: 730
--- NOTE | 2023-05-16 07:17 | WPDANESEPPF ---
Anes - Initial Pre Proc Eval Procedure: Operation Date: 05/16/23 07:30 Proposed Procedures p Right Rotator Cuff Repair, - Damian Wilkins MD s Left Carpometacarpal Thumb Injection - Damian Wilkins MD Date/Time: 05/16/23 07:17 Surgeon: Damian Wilkins MD Pre Op Diagnosis: rt rot cuff tear, with lft cmc djd Patient Data Age: 47 Gender: F Height: 1.6 m Weight: 66.55 kg Last Vital Signs Temp 36.7 C 05/16/23 06:33 Pulse 76 05/16/23 06:33 Resp 18 05/16/23 06:33 BP 109/63 05/16/23 06:33 Pulse Ox 100 05/16/23 06:33 O2 Del Method Room Air 05/16/23 06:33 Allergies Allergy/AdvReac Type Severity Reaction Status Date / Time No Known Allergies Allergy Verified 05/16/23 06:41 Home Medications Medication Instructions Recorded Confirmed Type oxybutynin chloride 5 mg 5 mg PO DAILY 06/19/21 05/16/23 History tablet,extended release 24 hr amlodipine 5 mg tablet 5 mg PO DAILY #90 tabs 02/24/23 05/16/23 Rx Lactobacillus 1 cap PO DAILY 05/02/23 05/16/23 History acidophilus-Bifidobac.animalis 2.5 billion cell capsule (Daily Probiotic) chlorhexidine gluconate 4 % 1 applic topical ONCE #237 mL 05/02/23 05/16/23 Rx topical liquid (Hibiclens) clindamycin 1 %-benzoyl peroxide 5 1 applic topical DAILY #25 grams 05/02/23 05/16/23 Rx % topical gel Patient hx anesthesia problems: none Family hx anesthesia problems: none Results Review: All pre-operative results and documents have been reviewed as part of the pre-operative evaluation. [facility] Past Medical History Medical History Acid reflux Anxiety Bloating Depression Essential (primary) hypertension GERD without esophagitis History of Helicobacter pylori infection 09/2020 OAB (overactive bladder) Prediabetes Surgical History Surgical History Hx of cholecystectomy (~2016) Family History Family History Father Family history of coronary artery disease Family history of congestive heart failure Mother Anxiety Other Diabetes mellitus Social History Social History Smoking packs per day: 0.5 Smoking cigarettes per day: 10.0 Years smoked: 4 Smoking pack-years: 2.00 Smoking status: Former smoker Tobacco type: cigarettes Smoking end date: 11/24/07 Alcohol intake: never Alcohol use details: 1 per month Substance use: never Substance use type: does not use Lack of Transportation: No Lack of Food: Never True Current Housing: I Have Housing Concerned About Future Housing: No Difficulty Paying Gas/Electric Bills: No Difficulty Paying for Meds: No Currently Unemployed: No Difficulty w/ Childcare or Family Care: No Living arrangements: with family Gender identity (if verbalized by the patient): Female Spiritual care concerns: No Anes - Eval Final PreProcedure Day of Procedure 05/16/23 07:17 Patient weight: overweight Heart: regular rate and rhythm Airway: Mallampati scale Neurological: alert and oriented Last oral intake: >/= 8 hours ASA classification: II Emergent: no Anesthetic plan: proceed Anesthesia type and monitoring: general LMA and standard monitoring Results Review: All pre-operative results and documents have been reviewed as part of the pre-operative evaluation. Informed Consent: The patient's anesthetic plan and its attendant risks and benefits were discussed with the patient/family/POA. Questions were solicited and answers provided to the satisfaction of the patient/family/POA.
[2023-05-16] MEDS: ceFAZolin 2 GM/D5W 50 ML 2 GM/50 ML BAG IVPB (07:50)
[2023-05-16] MEDS: HYDROGEN PEROXIDE 3% SOLN(*SP) 473 ML BOTTLE 237 ML IRRIGATION (08:43)
[2023-05-16] MEDS: methylPREDNISolone ACETATE 80 MG/ML VIAL I-ARTICULR (08:45)
--- NOTE | 2023-05-16 09:48 | P.OP_ITS ---
Procedure Note - Detailed Date of Procedure 05/16/23 Pre-op Diagnosis rt rot cuff tear, with lft cmc djd Post-op Diagnosis Same Procedure Performed REPAIR RIGHT ROTATOR CUFF, INJECTION LEFT 1ST CMC JOINT Surgeon Damian Wilkins MD Anesthesia General Description of Procedure THE PATIENT WAS TAKEN TO THE OPERATING ROOM AND THEN INTUBATED AND PLACED IN THE BEACH CHAIR POSITION. THE RIGHT UPPER EXTREMITY WAS PREPPED AND DRAPED IN THE NORMAL STERILE FASHION. AN INCISION WAS MADE IN BETWEEN THE STEVE-LATERAL A CROMION AND THE AC JOINT. THE FASCIA WAS IDENTIFIED. NEXT A MINI OPEN INCISION WAS MADE THROUGH THE DELTOID MUSCLE EXPOSING THE SUBACROMIAL SPACE. A LIMITED ACROMIOPLASTY WAS PREFORMED. THE ROTATOR CUFF WAS IDENTIFIED. THERE WAS A FULL THICKNESS TEAR. IT MEASURED APPROXIMATELY 2 CM X 2 CM. THERE WAS MILD RETRACTION. THE GREATER TUBEROSITY WAS DEBRIDED TO BLEEDING BONE. 2 ARTHREX 5.5 SUTURE ANCHORS WERE PLACED IN TO GOOD BONE AND HAD VERY GOOD BITES. JOSE-SAURABH TYPE REPAIRS WERE DONE TO THE ROTATOR CUFF AND THERE WAS GOOD APPROXIMATION TO THE GREATER TUBEROSITY. THE REPAIR WAS EXCELLENT. THERE WAS NO IMPINGEMENT ON THE REPAIR FROM THE ACROMION WITH RANGE OF MOTION. THE WOUND WAS IRRIGATED WITH COPIOUS AMOUNTS OF ANTIBIOTIC SOLUTION, H202, AND STERILE BETADINE. THE DELTOID MUSCLE WAS REPAIRED WITH #2 FIBER WIRE AND 0 VICRYL SUTURE. THE SUBCUTANEOUS LAYER WAS APPROXIMATED WITH 2-0 VICRYL. THE SKIN WAS APPROXIMATED WITH 3-0 QUIL AND DERMABOND. STERILE DRESSING WAS APPLIED. NEXT THE LEFT THUMB CMC JOINT WAS PREPPED. DEPO MEDROL 80 MG, 1 CC AND MARCAINE 0.5% 0.5 CC WAS INJECTED IN TO THE LEFT THUMB CMC JOINT. PATIENT WAS EXTUBATED AND SENT TO RECOVERY ROOM IN STABLE CONDITION. Estimated Blood Loss 20 Complications No immediate complications Condition Stable Disposition PACU
[2023-05-16] MEDS: fentaNYL CITRATE INJ (*CRX) 100 MCG/2 ML VIAL 25 MCG IV PUSH ×4 (09:54→10:02)
--- NOTE | 2023-05-16 10:03 | SUR.PHASEI ---
Notified Dr. Ambriz of patient's uncontrolled pain after 100mcg of fentanyl. Also notified Dr. Ambriz of Dr. Wilkins's request to repeat nerve block as patient has full sensation and strength to right upper extremity and intense pain. Orders received for IV dilaudid and IV versed. Dr. Ambriz did not want to repeat nerve block per his assessment.
[2023-05-16] MEDS: HYDROmorphone HCL INJ (*CRX) 1 MG/ML SYR 0.5 MG IV PUSH ×5 (10:06→10:50)
[2023-05-16] MEDS: MIDAZOLAM HCL (*CRX) 2 MG/2 ML VIAL IV PUSH (10:09)
[2023-05-16] MEDS: ONDANSETRON INJ 4 MG/2 ML VIAL IV PUSH (10:48)
[2023-05-16] MEDS: oxyCODONE HCL (*CRX) 5 MG TAB IR PO (11:35)
== END 2023-05-16 12:28 | disposition home or self-care (01) ==
PROVIDERS: PCP Family Medicine; Visit Provider Orthopaedic Surgery
PROC: (CPT 23420; principal; 2023-05-16 07:30)
PROC: (CPT 23412; 2023-05-16 07:30)
DX: M75.101 Unspecified rotator cuff tear or rupture of right shoulder, not specified as traumatic (principal); M18.12 Unilateral primary osteoarthritis of first carpometacarpal joint, left hand; G89.18 Other acute postprocedural pain; I10 Essential (primary) hypertension; N32.81 Overactive bladder; Z87.891 Personal history of nicotine dependence
CPT/HCPCS: 23412; 20600; 64415; A9270; C1713; J0690; J1040; J1170; J2250; J2405; J3010; J7120

== ENCOUNTER 2023-07-01 00:08 | Day surgery (SDC) | payer OTHER, SELFPAY ==
[2023-06-24 08:34] VITALS: BMI 27.1
[2023-07-01 09:10] VITALS: BP 115/75; PULSE 73; RESP 18; TEMP 36.2; O2SAT 100; BMI 26.9
--- NOTE | 2023-07-01 09:29 | WPDANESEPPF ---
Anes - Initial Pre Proc Eval Procedure: Operation Date: 07/01/23 10:30 Proposed Procedures p Screening Colonoscopy - Bryan Hung MD Date/Time: 07/01/23 09:29 Surgeon: Bryan Hung MD Pre Op Diagnosis: neoplasm screening Patient Data Age: 47 Gender: F Height: 1.6 m Weight: 69 kg Last Vital Signs Temp 36.2 C L 07/01/23 09:10 Pulse 73 07/01/23 09:10 Resp 18 07/01/23 09:10 BP 115/75 07/01/23 09:10 Pulse Ox 100 07/01/23 09:10 O2 Del Method Room Air 07/01/23 09:10 Allergies Allergy/AdvReac Type Severity Reaction Status Date / Time No Known Allergies Allergy Verified 07/01/23 09:18 Home Medications Medication Instructions Recorded Confirmed Type amlodipine 5 mg tablet 5 mg PO DAILY #90 tabs 02/24/23 07/01/23 Rx Lactobacillus 1 cap PO DAILY 05/02/23 07/01/23 History acidophilus-Bifidobac.animalis 2.5 billion cell capsule (Daily Probiotic) tramadol 50 mg tablet 50 mg PO Q6H PRN Pain 06/03/23 07/01/23 History inulin 2 gram chewable tablet 2 g PO DAILY 06/24/23 07/01/23 History (Prebiotic Fiber) oxybutynin chloride 10 mg 10 mg PO DAILY 06/24/23 07/01/23 History tablet,extended release 24 hr Patient hx anesthesia problems: other (brachial plexus block did not work) Family hx anesthesia problems: none Results Review: All pre-operative results and documents have been reviewed as part of the pre-operative evaluation. [facility] Past Medical History Medical History Acid reflux Anxiety Bloating Depression Essential (primary) hypertension GERD without esophagitis History of Helicobacter pylori infection 09/2020 OAB (overactive bladder) Prediabetes Surgical History Surgical History Hx of cholecystectomy (~2017) S/P right rotator cuff repair 05/16/2023 Family History Family History Father Family history of coronary artery disease Family history of congestive heart failure Mother Anxiety Other Diabetes mellitus Social History Social History Smoking packs per day: 0.5 Smoking cigarettes per day: 10.0 Years smoked: 4 Smoking pack-years: 2.00 Smoking status: Never smoker Tobacco type: cigarettes Smoking end date: 11/24/07 Alcohol intake: never Alcohol use details: rarely Substance use: never Substance use type: does not use Lack of Transportation: No Lack of Food: Never True Current Housing: I Have Housing Concerned About Future Housing: No Difficulty Paying Gas/Electric Bills: No Difficulty Paying for Meds: No Currently Unemployed: No Difficulty w/ Childcare or Family Care: No Living arrangements: with family Gender identity (if verbalized by the patient): Female Spiritual care concerns: No Anes - Eval Final PreProcedure Day of Procedure 07/01/23 09:29 Patient weight: overweight Heart: regular rate and rhythm Lungs: clear to auscultation Airway: Mallampati scale class II Neurological: alert and oriented Last oral intake: >/= 8 hours ASA classification: II Emergent: no Anesthetic plan: proceed Anesthesia type and monitoring: general GIVS and standard monitoring Results Review: All pre-operative results and documents have been reviewed as part of the pre-operative evaluation. Informed Consent: The patient's anesthetic plan and its attendant risks and benefits were discussed with the patient/family/POA. Questions were solicited and answers provided to the satisfaction of the patient/family/POA.
[2023-07-01] MEDS: LACTATED RINGERS 1,000 ML 150 ML IV CONT (09:30)
--- NOTE | 2023-07-01 09:50 | PM.HPGS ---
History of Present Illness History of Present Illness Consent: Risks, benefits, and alternatives have been discussed and questions answered. Patient agrees to proceed with procedure. Chief complaint: neoplasm screening Narrative: Brandee Hair is a 47 year old female here for first screening colonoscopy Review of Systems Constitutional: Constitutional: Denies headache(s) and Denies weakness Eyes: Eyes: Denies blurry vision ENT: Reports Normal hearing present, Denies headache(s) and Denies neck pain Cardiovascular: Cardiovascular: Denies chest pain and Denies dyspnea Respiratory: Respiratory: Denies dyspnea Gastrointestinal: Gastrointestinal: Reports no additional gastrointestinal complaints Genitourinary: Genitourinary: Denies dysuria Musculoskeletal: Musculoskeletal: Denies neck pain Integumentary/Breasts: Skin/Breast: Denies dry skin Neurologic: Reports Normal hearing present, Denies headache(s) and Denies weakness Psychiatric: Psychiatric: Denies anxiety Endocrine: Endocrine: Denies change in body appearance Hematologic/Lymphatic: Hematologic/Lymphatic: Denies easy bleeding Allergic/Immunologic: Allergic/Immunologic: Denies urticaria [facility] Past Medical History Medical History (Updated 07/01/23 @ 09:50 by Bryan Hung MD) Acid reflux Anxiety Bloating Colon cancer screening Depression Essential (primary) hypertension GERD without esophagitis History of Helicobacter pylori infection 09/2020 OAB (overactive bladder) Prediabetes Surgical History Surgical History Hx of cholecystectomy (~2016) S/P right rotator cuff repair 05/16/2023 Family History Family History Father Family history of coronary artery disease Family history of congestive heart failure Mother Anxiety Other Diabetes mellitus Social History Social History Smoking packs per day: 0.5 Smoking cigarettes per day: 10.0 Years smoked: 4 Smoking pack-years: 2.00 Smoking status: Never smoker Tobacco type: cigarettes Smoking end date: 11/24/07 Alcohol intake: never Alcohol use details: rarely Substance use: never Substance use type: does not use Lack of Transportation: No Lack of Food: Never True Current Housing: I Have Housing Concerned About Future Housing: No Difficulty Paying Gas/Electric Bills: No Difficulty Paying for Meds: No Currently Unemployed: No Difficulty w/ Childcare or Family Care: No Living arrangements: with family Gender identity (if verbalized by the patient): Female Spiritual care concerns: No Meds Home Medications and Allergies Home Medications Medication Instructions Recorded Confirmed Type amlodipine 5 mg tablet 5 mg PO DAILY #90 tabs 02/24/23 07/01/23 Rx Lactobacillus 1 cap PO DAILY 05/02/23 07/01/23 History acidophilus-Bifidobac.animalis 2.5 billion cell capsule (Daily Probiotic) tramadol 50 mg tablet 50 mg PO Q6H PRN Pain 06/03/23 07/01/23 History inulin 2 gram chewable tablet 2 g PO DAILY 06/24/23 07/01/23 History (Prebiotic Fiber) oxybutynin chloride 10 mg 10 mg PO DAILY 06/24/23 07/01/23 History tablet,extended release 24 hr Allergies Allergy/AdvReac Type Severity Reaction Status Date / Time No Known Allergies Allergy Verified 07/01/23 09:18 Vital Signs Vital Signs - 24 hr 07/01/23 09:10 Temperature 97.2 F L Pulse Rate 73 Respiratory Rate 18 Blood Pressure 115/75 Pulse Oximetry 100 Oxygen Delivery Room Air Exam Const: General: comfortable and no acute distress HENMT: Face/Nose/Sinus: Normal nares present Eyes: General: appearance normal, both eyes and all related structures Neck: Neck: no JVD Resp: Auscultation: clear to auscultation bilaterally Cardio: Rate: regular rate Rhythm: regular rhyth
[2023-07-01 10:07] VITALS: BP 96/53; PULSE 70; RESP 20; O2SAT 100
[2023-07-01 10:17] VITALS: BP 102/67; PULSE 70; RESP 17; O2SAT 100
[2023-07-01 10:27] VITALS: BP 110/75; PULSE 66; RESP 20; O2SAT 100
== END 2023-07-01 10:38 | disposition home or self-care (01) ==
PROVIDERS: PCP Family Medicine; Visit Provider Internal Medicine Gastroenterology
PROC: 0DJD8ZZ Inspection of Lower Intestinal Tract, Via Natural or Artificial Opening Endoscopic (ICD-10-PCS; CPT 45378; principal; 2023-07-01 10:30)
DX: Z12.11 Encounter for screening for malignant neoplasm of colon (principal); K64.8 Other hemorrhoids; I10 Essential (primary) hypertension; K21.9 Gastro-esophageal reflux disease without esophagitis; N32.81 Overactive bladder; Z87.891 Personal history of nicotine dependence
CPT/HCPCS: 45378; J2704; J7120

== ENCOUNTER 2023-09-03 02:03 | Day surgery (SDC) | payer OTHER, SELFPAY ==
--- NOTE | 2023-09-01 15:08 | PC.NURSE ---
Report to the Outpatient Waiting Room, entrance under the green pavilion located off [facility], at time __1200 on date _09/03/23 . Planned Procedure Time: ___1400 . Time changes happen often and if your time is changed the preop area will call you the afternoon before. - You and your visitor will be asked to self-screen and do not enter if you have any COVID symptoms. - A mask is optional within the hospital at this time. Patients may have clear liquids (water, carbonated beverages, clear teas, apple juice) until 3 hours prior to surgery with a maximum of 20 ounces. - No food from midnight until time of surgery - Infants may have breast milk until 4 hours before surgery, formula 6 hours prior to surgery. - Children will be allowed to drink immediately following surgery. If applicable, please bring a bottle or sippy cup to assist with drinking. Juice, water, soda, and popsicles are readily available. For infants on formula, please bring formula the day of surgery. Pacifiers are allowed. Take the following medications with a SIP of water the morning of surgery: __AMLODIPINE DO NOT STOP ANY OF YOUR OTHER PRESCRIPTION MEDICATIONS PRIOR TO SURGERY ?EXCEPT THE FOLLOWING Medications to discontinue per physician ___IBUPROFEN PER DR PEREZ Please no make-up, nail frisian, hairspray, perfume, deodorant, or body powder the day of surgery. No jewelry (including any body piercings) or valuables the day of surgery, leave them at home. Please take a shower or bath the night before, or the morning of, surgery with an antibacterial soap. Wear comfortable, loose fitting clothing. Children are encouraged to wear pajamas. - Jewelry must be removed prior to entering the operating room. Rings and piercings that are not removed may be cut off. - The hospital will not accept responsibility for valuables. - Please leave all valuables, including medications, at home the day of surgery. If you are going home after surgery, a licensed courier delivery driver must drive you home. - NO public transportation without another adult if you receive anesthesia. - We recommend that an adult stay with you for 24 hours following discharge. - We also recommend that you do not drive, make important decision, drink alcoholic beverages, or take any drugs that were not prescribed by your health care provider for at least 24 hours after your discharge time. For Pediatric surgeries, we recommend two adults accompany the child home. Follow any additional instructions given to you from your surgeon. If you or anyone in your household have experienced Covid symptoms in the past week, please notify your surgeon or the nurse liaison at the phone number below for possible testing. Telephone instructions given to __PT and asked if any additional questions and then verbalized understanding. Patient advised to call surgeon office or pre surgery nurse liaison [phone] if any additional questions.
[2023-09-01 15:12] VITALS: BMI 29.2
--- NOTE | 2023-09-03 07:19 | WPDHPUPDATE1 ---
History and Physical Update Update Date/Time: 09/03/23 07:19 History and Physical has been reviewed, including an updated exam of the patient. There are NO changes in the patient's condition. Risks, benefits, and alternatives have been discussed and questions answered. Patient agrees to proceed with procedure.
[2023-09-03] MEDS: LACTATED RINGERS 1,000 ML 30 ML IV CONT ×2 (12:49→14:50)
[2023-09-03 13:12] VITALS: BP 116/70; PULSE 79; RESP 20; TEMP 37; O2SAT 98; BMI 29.0
--- NOTE | 2023-09-03 13:30 | WPDANESEPPF ---
Anes - Initial Pre Proc Eval Procedure: Operation Date: 09/03/23 14:00 Proposed Procedures p Right Shoulder Manipulation Under Anesthesia, Left Hand Carpal Metacarpal Joint Injection - Damian Wilkins MD Date/Time: 09/03/23 13:30 Surgeon: Damian Wilkins MD Pre Op Diagnosis: Rt Frozen [place] Patient Data Age: 47 Gender: F Height: 1.6 m Weight: 74.3 kg Last Vital Signs Temp 37.0 C 09/03/23 13:12 Pulse 79 09/03/23 13:12 Resp 20 09/03/23 13:12 BP 116/70 09/03/23 13:12 Pulse Ox 98 09/03/23 13:12 O2 Del Method Room Air 09/03/23 13:12 Allergies Allergy/AdvReac Type Severity Reaction Status Date / Time No Known Allergies Allergy Verified 09/01/23 14:54 Home Medications Medication Instructions Recorded Confirmed Type amlodipine 5 mg tablet 5 mg PO DAILY #90 tabs 02/24/23 09/03/23 Rx Lactobacillus 1 cap PO DAILY 05/02/23 09/03/23 History acidophilus-Bifidobac.animalis 2.5 billion cell capsule (Daily Probiotic) inulin 2 gram chewable tablet 2 g PO DAILY 06/24/23 09/03/23 History (Prebiotic Fiber) oxybutynin chloride 10 mg 10 mg PO DAILY 06/24/23 09/03/23 History tablet,extended release 24 hr acetaminophen 325 mg tablet 650 mg PO PRN PRN Pain 09/01/23 09/03/23 History (Tylenol) ibuprofen 800 mg tablet 800 mg PO Q6H PRN Pain 09/01/23 09/03/23 History Patient hx anesthesia problems: none Family hx anesthesia problems: none Results Review: All pre-operative results and documents have been reviewed as part of the pre-operative evaluation. [facility] Past Medical History Medical History Acid reflux Anxiety Bloating Colon cancer screening Depression Essential (primary) hypertension GERD without esophagitis History of Helicobacter pylori infection 09/2020 OAB (overactive bladder) Prediabetes Surgical History Surgical History Hx of cholecystectomy (~2016) S/P right rotator cuff repair 05/16/2023 Family History Family History Father Family history of coronary artery disease Family history of congestive heart failure Mother Anxiety Other Diabetes mellitus Social History Social History Smoking packs per day: 0.5 Smoking cigarettes per day: 10.0 Years smoked: 4 Smoking pack-years: 2.00 Smoking status: Former smoker Tobacco type: cigarettes Smoking end date: 11/24/07 Alcohol intake: never Alcohol use details: rarely Substance use: never Substance use type: does not use Lack of Transportation: No Lack of Food: Never True Current Housing: I Have Housing Concerned About Future Housing: No Difficulty Paying Gas/Electric Bills: No Difficulty Paying for Meds: No Currently Unemployed: No Difficulty w/ Childcare or Family Care: No Living arrangements: with family Gender identity (if verbalized by the patient): Female Spiritual care concerns: No Anes - Eval Final PreProcedure Day of Procedure 09/03/23 13:30 Patient weight: overweight Heart: regular rate and rhythm Lungs: clear to auscultation Airway: Mallampati scale class II Neurological: alert and oriented Last oral intake: >/= 8 hours ASA classification: II Emergent: no Anesthetic plan: proceed Anesthesia type and monitoring: general and standard monitoring Results Review: All pre-operative results and documents have been reviewed as part of the pre-operative evaluation. Informed Consent: The patient's anesthetic plan and its attendant risks and benefits were discussed with the patient/family/POA. Questions were solicited and answers provided to the satisfaction of the patient/family/POA.
[2023-09-03] MEDS: BUPivacaine HCL 0.5% 10 ML AMP 9 ML INFILTRATE (14:18)
[2023-09-03 14:24] VITALS: BP 122/69; PULSE 78; RESP 18; O2SAT 100
--- NOTE | 2023-09-03 14:29 | W.PM.PROC2 ---
Procedure Note - Detailed Date of Procedure 09/03/23 Pre-op Diagnosis ADHESIVE CAPSULITIS RIGHT SHOULDER, LEFT 1ST [facility] JOINT ARTHRITIS Post-op Diagnosis Same Procedure Performed MANIPULATION RIGHT SHOULDER, INJECTION RIGHT SHOULDER JOINT, INJECTION LEFT 1ST [facility] JOINT Surgeon Damian Wilkins MD Anesthesia General Description of Procedure THE PATIENT WAS TAKEN TO THE OPERATING ROOM IN STABLE CONDITION. THE PATIENT WAS CHEMICALLY PARALYZED. ONCE PARALYSIS HAD BEEN ACHIEVED THE RIGHT SHOULDER WAS MANIPULATED IN ALL DIRECTIONS UNTIL THERE WAS AUDIBLE ADHESIOLYSIS AND FULL MOTION IN ALL PLANES WAS ACHIEVED. NEXT THE SHOULDER WAS PREPPED AND DEPO MEDROL 80 MG 2 CC AND MARCAINE 0.5% WERE INJECTED INTO THE GLENOHUMERAL JOINT. NEXT THE LEFT 1ST [facility] JOINT WAS PREPPED AND 1 CC DEPO MEDROL AND MARCAINE 0.5% WAS INJECTED IN TO THE LEFT 1ST CMC JOINT. THE PATIENTS GENERAL ANESTHESIA WAS REVERSED AND SHE WAS SENT TO RECOVERY ROOM IN STABLE CONDITION. Estimated Blood Loss 0 Complications No immediate complications Condition Stable Disposition PACU
[2023-09-03] MEDS: fentaNYL CITRATE INJ (*CRX) 100 MCG/2 ML VIAL 25 MCG IV PUSH ×8 (14:31→14:49)
[2023-09-03] MEDS: KETOROLAC 30 MG/ML VIAL (*BKC) IV PUSH (14:40)
[2023-09-03 14:45] VITALS: BP 150/102; PULSE 99; RESP 20; O2SAT 100
[2023-09-03] MEDS: diazePAM INJ (*CRX) 10 MG/2 ML SYRINGE 5 MG IV PUSH (14:47)
[2023-09-03] MEDS: oxyCODONE HCL (*CRX) 5 MG TAB IR PO (15:00)
[2023-09-03 15:15] VITALS: BP 127/88; PULSE 88; RESP 18; O2SAT 100
[2023-09-03 15:45] VITALS: BP 122/62; PULSE 68; RESP 18; O2SAT 100
[2023-09-03 16:05] VITALS: BP 110/52; PULSE 67; RESP 18
== END 2023-09-03 16:16 | disposition home or self-care (01) ==
PROVIDERS: PCP Family Medicine; Visit Provider Orthopaedic Surgery
PROC: (CPT 20600; principal; 2023-09-03 14:00)
DX: M75.01 Adhesive capsulitis of right shoulder (principal); M18.12 Unilateral primary osteoarthritis of first carpometacarpal joint, left hand; I10 Essential (primary) hypertension; N32.81 Overactive bladder; K21.9 Gastro-esophageal reflux disease without esophagitis; Z87.891 Personal history of nicotine dependence
CPT/HCPCS: 20600; 23700; A9270; J0330; J1030; J1040; J1885; J2250; J2704; J3010; J3360; J7120

== ENCOUNTER 2023-10-02 15:41 | Outpatient (CLI) | payer OTHER, SELFPAY ==
[2023-10-02 18:43] LABS: Alanine Aminotransferase 20 U/L (6-35); Albumin Level 4.7 g/dL (3.5-5.1); Alkaline Phosphatase 51 U/L (38-126); Anion Gap 8 mmol/L (8-16); Aspartate Amino Transferase 39 U/L (14-36); Bilirubin,Total 0.6 mg/dL (0.2-1.3); Blood Urea Nitrogen 13 mg/dL (7-17); Calcium 9.4 mg/dL (8.4-10.2); Carbon Dioxide 29 mmol/L (22-30); Chloride 101 mmol/L (98-107); Estimated Glomerular Filt Rate > 60; Glucose 103 mg/dL (65-110); Sodium 138 mmol/L (137-145)
[2023-10-02 19:32] LABS: Basophils Percent Auto 0.4 % (0.2-1.2); Eosinophils Percent Auto 0.5 % (0-4.4); Hematocrit 42.9 % (37.0-47.0); Hemoglobin 13.7 g/dL (12.0-15.0); Immature Granulocyte Absolute 0.04 K/mm3 (0.00-0.031); Immature Granulocyte Percent A 0.5 % (0-0.5); Lymphocytes Absolute Auto 3.37 K/mm3 (0.9-3.2); Lymphocytes Percent Auto 42.7 % (18.3-44.2); Mean Corpuscular HGB Conc 31.9 g/dl (32-36); Mean Corpuscular Hemoglobin 30.2 pg (26-34); Mean Corpuscular Volume 94.7 fl (80-100); Mean Platelet Volume 8.9 fl (7.4-10.4); Monocytes Absolute Auto 0.5 K/mm3 (0.1-0.6); Monocytes Percent Auto 5.7 % (2.6-8.5); Neutrophils Percent Auto 50.2 % (45.5-73.1); Platelet Count Result 372 k/mm3 (150-375); Red Blood Count 4.53 M/mm3 (4.2-5.4); Red Cell Distribution Width 13.6 % (11.5-14.5); White Blood Count 7.9 K/mm3 (4.5-10.0)
== END 2023-10-02 15:42 | disposition home or self-care (01) ==
LOC: ANHGOSHLAB 15:43
PROVIDERS: PCP Family Medicine; Visit Provider Family Medicine
DX: R25.2 Cramp and spasm (principal); I10 Essential (primary) hypertension
CPT/HCPCS: 36415; 80053; 84443; 85025

== ENCOUNTER 2023-10-29 13:30 | Outpatient (RCR) | payer OTHER, SELFPAY ==
[2023-08-07 08:04] VITALS: BP_SYST 100
--- NOTE | 2023-08-07 10:45 | OPREHPOC ---
Outpatient Therapy Plan of Care This is a Multidisciplinary Plan of Care that may contain components documented by all disciplines (PT, OT, and ST.) PT Problem 1 PT Problem #1 Knowledge Deficit PT Goal 1 Goal Pt to be IND with issued HEP Target Visit 16 PT Problem 2 PT Problem #2 Pain PT Goal 1 Goal Pt to report shoulder pain no greater than 3/10 in the last week Target Visit 16 PT Goal 2 Goal Pt to report 75% improvement in overall symptoms Target Visit 16 PT Problem 3 PT Problem #3 Impaired Range of Motion PT Goal 1 Goal Pt to improve active shoulder flexion ROM to 150 deg Target Visit 16 PT Goal 2 Goal Pt to improve active shoulder abduction ROM to 140 deg Target Visit 16 PT Problem 4 PT Problem #4 Impaired Strength PT Goal 1 Goal Pt to improve R shoulder strength to grossly 4+/5 Target Visit 16 PT Goal 2 Goal Pt to be able to lift 5lb overhead without an increase in symptoms. Target Visit 16 PT Problem 5 PT Problem #5 Impaired Functional Mobil PT Goal 1 Goal Pt to return to work without limitations Target Visit 16 PT Goal 2 Goal Pt to be able to lift and carry 30lb from ground level. Target Visit 16
--- NOTE | 2023-08-07 10:45 | PTOPEVAL1 ---
Assessment and note entered by Ryley Mcfarland, PT, DPT Evaluation Information Assessment Status Evaluation Diagnosis R RTC repair Onset 05/16/23 Subjective Information Pt states she has a RTC repair on 05/16/23. She has been in therapy since the surgery but was unhappy with her prior care. She states she is still having a lot of pain and does not feel like her mobility is where it should be. She states she is in constant pain, she states pain increases with activity. She states she has pain into her neck and down into her R arm and she states she does not understand why. She states this is an overuse injury so she is fearful of reinjury. 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 Reported Pain Level Pain Score 4: Self Report Assessment PT Clinical Summary Brandee presents to therapy today for her initial evaluation follow a R RTC repair on 05/16/23. She reports she has completed formal therapy elsewhere but was unhappy with her care. Today she demonstrates significantly decreased active and passive shoulder ROM compared to her L side, and decreased from what is expected following surgery. She demonstrates passive ROM this is limited by pain before resistance. She demonstrates guarding behaviors demonstrated by increased upper trap activation and her arm adducted to her side with her elbow flexed. Skilled therapy services are indicated to manage pain, to improve mobility, and to return to PLOF. Plan of Care Interventions Electrical Stimulation,Gait Training,Hot Pack/Cold Pack,Manual Therapy,Neuro Re-education,Patient/ Caregiver Educati,Therapeutic Activities, Therapeutic Exercise PT Services Indicated Yes Treatment Frequency and 2x/wk for 8 visits Duration These treatments will address the objective and functional deficits as defined above. The patient will be advanced safely and appropriately in order for the patient to progress towards his/her prior level of function. Additional exercises will be introduced and as well as a comprehensive home exercise program upon discharge, if needed, ?to ensure carryover of functional gains achieved in the clinic. This treatment plan has been reviewed and agreement upon by the patient.
--- NOTE | 2023-09-02 12:14 | PCPTNOTE ---
Patient reports she is having a procedure done and will not be able to make her appointment.
[2023-09-04 12:45] VITALS: BP_SYST 100
--- NOTE | 2023-09-04 14:16 | PTOPPROG ---
Assessment and note entered by Ryley Mcfarland, PT, DPT Evaluation Information Assessment Status Progress Diagnosis R RTC repair Onset 05/16/23 Subjective Information Pt states she underwent a shoulder manipulation yesterday. Prior to that, therapy was limited by pain. She states pain was constant. She states she continues to have a hard time not shrugging her shoulder with motion. She declines any pain at rest. She states she also had a cortisone injection yesterday. Assessment PT Clinical Summary Brandee presents to therapy today for her progress report following 8 visits of skilled therapy to treat her R RTC repair on 05/16/23 and shoulder manipulation on 09/03/23. She she continues to demonstrate decreased active shoulder ROM in all direction, decreased passive motion limited by pain, accessory upper trap activation, and poor scapulohumeral rhythm. Continuation of skilled therapy services are indicated to manage pain, to improve mobility, to improve strength, and to return to PLOF without limitations. Plan of Care Interventions Electrical Stimulation,Gait Training,Hot Pack/Cold Pack,Manual Therapy,Neuro Re-education,Patient/ Caregiver Educati,Therapeutic Activities, Therapeutic Exercise PT Services Indicated Yes Treatment Frequency and 2x/wk for 8 visits Duration These treatments will address the objective and functional deficits as defined above. The patient will be advanced safely and appropriately in order for the patient to progress towards his/her prior level of function. Additional exercises will be introduced and as well as a comprehensive home exercise program upon discharge, if needed, ?to ensure carryover of functional gains achieved in the clinic. This treatment plan has been reviewed and agreement upon by the patient.
[2023-10-02 10:00] VITALS: BP_SYST 170
--- NOTE | 2023-10-02 17:37 | PTOPPROG ---
Assessment and note entered by Ryley Mcfarland, PT, DPT Evaluation Information Assessment Status Progress Diagnosis R RTC repair Onset 05/16/23 Subjective Information Pt states things are going so much better in the last month. She states she feels like she has progressed more in the last month than she has in the last 5 months. She states she is still having a little pain in her anterior shoulder. She states she did some housework and chores yesterday and is having some soreness in her upper shoulder. Assessment PT Clinical Summary Brandee presents to therapy today for her progress report following 16 visits of skilled therapy to treat her R RTC repair on 05/16/23 and shoulder manipulation on 09/03/23. Today she demonstrates significant improvements in her active shoulder ROM compared to a month ago. Her pain with exercise has also decreased significantly. Her strength is improving but continues to have decreased overhead functional strength needed to return to work. Continuation of skilled therapy services are indicated to improve strength, improve functional mobility and to return to PLOF without limitations. Plan of Care Interventions Electrical Stimulation,Gait Training,Hot Pack/Cold Pack,Manual Therapy,Neuro Re-education,Patient/ Caregiver Educati,Therapeutic Activities, Therapeutic Exercise PT Services Indicated Yes Treatment Frequency and 1-2x/wk for 8 visits Duration These treatments will address the objective and functional deficits as defined above. The patient will be advanced safely and appropriately in order for the patient to progress towards his/her prior level of function. Additional exercises will be introduced and as well as a comprehensive home exercise program upon discharge, if needed, ?to ensure carryover of functional gains achieved in the clinic. This treatment plan has been reviewed and agreement upon by the patient.
[2023-10-29 13:31] VITALS: BP_SYST 170
--- NOTE | 2023-10-29 17:03 | PTOPPROG ---
Assessment and note entered by Ryley Mcfarland, PT, DPT Evaluation Information Assessment Status Progress Diagnosis R RTC repair Onset 05/16/23 Subjective Information Pt states she is feeling really sore when she gets off work, everyday. She states she is not able to get her normal amount of work done. She states her pain has increased daily since returning back to work. She states she still has the bump on the front side of her shoulder, she states it feels like a flap and it feels like something might not be attached all the way . Pt states she is getting a catching feeling when she lowers her arm down to her side from an overhead position. Assessment PT Clinical Summary Brandee presents to therapy today for her progress report following 21 visits of skilled therapy to treat her R RTC repair on 05/16/23 and shoulder manipulation on 09/03/23. She has been back to work for 3hrs per day since 10/20/23. Today she demonstrates decreased strength and active ROM compared to her last progress report likely limited by pain. Her pain has increased significantly since returning to work. her strength continues to be a concern that is limiting her success with return to work related tasks. Continuation of skilled therapy services are indicated to improve strength, improve functional mobility and to return to PLOF without limitations. Plan of Care Interventions Electrical Stimulation,Gait Training,Hot Pack/Cold Pack,Manual Therapy,Neuro Re-education,Patient/ Caregiver Educati,Therapeutic Activities, Therapeutic Exercise PT Services Indicated Yes Treatment Frequency and 1x/wk for 4 visits Duration These treatments will address the objective and functional deficits as defined above. The patient will be advanced safely and appropriately in order for the patient to progress towards his/her prior level of function. Additional exercises will be introduced and as well as a comprehensive home exercise program upon discharge, if needed, ?to ensure carryover of functional gains achieved in the clinic. This treatment plan has been reviewed and agreement upon by the patient.
--- NOTE | 2023-11-05 11:40 | PCPTNOTE ---
This treatment is being continued on visit number [id number]. Please see documentation on both accounts to view progress. Completed interventions, outcomes, and problems have been marked as Inactive to facilitate the copying of the Care plan routine for recurring accounts.
== END 2023-11-03 13:21 | disposition still patient (30) ==
LOC: ANHGOSHPT 13:30
PROVIDERS: PCP Family Medicine; Visit Provider Orthopaedic Surgery
DX: Z98.890 Other specified postprocedural states (principal)
CPT/HCPCS: 36415; 80053; 84443; 85025; 97014; 97110; 97112; 97140; 97161; 97530; 97750; G0283

== ENCOUNTER 2023-11-19 09:00 | Outpatient (RCR) | payer OTHER, SELFPAY ==
--- NOTE | 2023-11-05 11:42 | PCPTNOTE ---
The treatment documented on this account is a continuation of the treatment documented on visit number [id number]. Please see documentation on both accounts to view progress. The Plan of Care has been transitioned and updated within the new V#. I have addressed and agree with the discipline specific Problems, Interventions, and Goals for the current certification period. Completed interventions, outcomes, and problems have been marked as Inactive to facilitate the copying of the Care plan routine for recurring accounts.
--- NOTE | 2023-11-19 09:43 | PTOPPROG ---
Assessment and note entered by Ryley Mcfarland, PT, DPT Evaluation Information Assessment Status Progress Diagnosis R RTC repair Onset 05/16/23 Subjective Information Pt states her shoulder is still not getting any better. She reports a pinching and pulling pain with any active motions. She states she wishes she would have not had the surgery d/t similar levels of pain without an improvement in motion. She states she is planning on following up with Dr. Wilkins in 2 weeks, she wants to get an MRI. She states her pain got up to a 7/10 this week and she has to take some of her post-op pain medications. Assessment PT Clinical Summary Brandee presents to therapy today for her progress report following 24 visits of skilled therapy to treat her R RTC repair on 05/16/23 and shoulder manipulation on 09/03/23. She has been back to work for 3hrs per day since 10/20/23. Today she continues to report high level of pain limiting her strength and motion. It was recommended that pt be placed on hold at this time until she follows up with her provider. Her therapy progress has been limited by pain reports. Plan of Care PT Services Indicated Yes Treatment Frequency and on hold Duration These treatments will address the objective and functional deficits as defined above. The patient will be advanced safely and appropriately in order for the patient to progress towards his/her prior level of function. Additional exercises will be introduced and as well as a comprehensive home exercise program upon discharge, if needed, ?to ensure carryover of functional gains achieved in the clinic. This treatment plan has been reviewed and agreement upon by the patient.
--- NOTE | 2024-01-07 13:03 | PTOPDC ---
Assessment and note entered by yRley Mcfarland, PT, DPT Evaluation Information Assessment Status Discharge - Pt Not Present Diagnosis R RTC repair Onset 05/16/23 Subjective Information Called and spoke with pt. She states her strength is slowly starting to get better. She got a follow up injection without much relief. Pt states at this time she is going to continue with her HEP as she is not sure what other options she has. Assessment PT Clinical Summary Brandee was evaluated 08/07/23 and completed 24 visits of skilled therapy then through 11/19/23. She will be discharged at this time per pt request. If she needs additional therapy she will need a new order.
== END 2024-01-07 13:26 | disposition home or self-care (01) ==
LOC: ANHGOSHPT 09:00
PROVIDERS: PCP Family Medicine; Visit Provider Orthopaedic Surgery
DX: Z48.89 Encounter for other specified surgical aftercare (principal); Z98.890 Other specified postprocedural states
CPT/HCPCS: 36415; 80053; 83036; 97014; 97110; 97140; 99199; G0283

== ENCOUNTER 2023-11-19 09:35 | Outpatient (CLI) | payer OTHER, SELFPAY ==
[2023-11-19 19:17] LABS: Alanine Aminotransferase 18 U/L (6-35); Albumin Level 4.1 g/dL (3.5-5.1); Alkaline Phosphatase 40 U/L (38-126); Anion Gap 8 mmol/L (8-16); Aspartate Amino Transferase 26 U/L (14-36); Bilirubin,Total 0.5 mg/dL (0.2-1.3); Blood Urea Nitrogen 13 mg/dL (7-17); Carbon Dioxide 26 mmol/L (22-30); Chloride 104 mmol/L (98-107); Estimated Glomerular Filt Rate > 60; Glucose 94 mg/dL (65-110); Sodium 138 mmol/L (137-145)
[2023-11-19 20:05] LABS: Hemoglobin A1C 5.1 % (<5.7)
== END 2023-11-19 09:36 | disposition home or self-care (01) ==
LOC: ANHGOSHLAB 09:37
PROVIDERS: PCP Family Medicine; Visit Provider Family Medicine
DX: R74.01 Elevation of levels of liver transaminase levels (principal); R73.03 Prediabetes
CPT/HCPCS: 36415; 80053; 83036

== ENCOUNTER 2023-12-17 08:37 | Outpatient (CLI) | payer OTHER, SELFPAY ==
--- NOTE | ~2023-12-17 | MR_ITS ---
MRI of the right shoulder Technique: Axial proton-density fat-sat images, coronal proton density fat-sat and T2 fat-sat images, and sagittal T1-weighted and T2 fat-sat images were acquired. Clinical History: Rotator cuff tear COMPARISON: 04/30/2023 Findings: There is mild AC joint degenerative change with probable prior subacromial decompression. C oracoclavicular, coracoacromial, and coracohumeral ligaments appear intact. Supraspinatus and infraspinatus tendons demonstrate postoperative signal change and/or tendinosis, wi thout definite partial or full-thickness recurrent tear. Subscapularis tendon is intact. Tendon of th e long head of the biceps is intact. No labral tear identified. Inferior glenohumeral ligament is intact. No significant joint effusion or degenerative change of the glenohumeral joint. There is small amount of fluid in the subacromial/subdeltoid bursa. No muscle at rophy or edema. Impression: Probable postoperative signal in the supraspinatus/infraspinatus tendinosis, without evidence for rec urrent tear. Small amount of fluid in subacromial/subdeltoid bursa. Correlate for bursitis. Reviewed, dictated and finalized at [facility]. [employer] Impression: Probable postoperative signal in the supraspinatus/infraspinatus tendinosis, wi thout evidence for recurrent tear. Small amount of fluid in subacromial/subdeltoid bursa. Correlate for bursitis.
== END 2023-12-17 08:38 | disposition home or self-care (01) ==
PROVIDERS: PCP Family Medicine; Visit Provider Orthopaedic Surgery
DX: M25.511 Pain in right shoulder (principal); Z98.890 Other specified postprocedural states
CPT/HCPCS: 73221

== ENCOUNTER 2024-02-11 14:41 | Outpatient (CLI) | payer OTHER, SELFPAY ==
--- NOTE | ~2024-02-11 | MM_ITS ---
EXAMINATION: MM screening destiny BI w seven HISTORY: Screening TECHNIQUE: Craniocaudal and mediolateral oblique 3-D tomosynthesis images were obtained and synthetic 2-D images were generated. CAD analysis was submitted and interpreted. COMPARISON: 08/08/2021 BREAST PARENCHYMAL COMPOSITION: Not dense: There are scattered areas of fibroglandular density. FINDINGS: There is no evidence of suspicious mass, calcification, or architectural distortion to sugg est malignancy in either breast. There has been no suspicious interval change. IMPRESSION: 1. No mammographic evidence of malignancy. 2. Recommend routine screening mammography in one year. BI-RADS Category 1: Negative Reviewed, dictated and finalized at location A.
== END 2024-02-11 14:42 | disposition home or self-care (01) ==
LOC: ANHIMG 14:45
PROVIDERS: PCP Family Medicine; Visit Provider Family Medicine
DX: Z12.31 Encounter for screening mammogram for malignant neoplasm of breast (principal)
CPT/HCPCS: 77063; 77067

== ENCOUNTER 2024-06-02 11:44 | Outpatient (CLI) | payer OTHER, SELFPAY ==
[2024-06-02 18:39] LABS: Hematocrit 39.2 % (37.0-47.0); Hemoglobin 12.6 g/dL (12.0-15.0); Mean Corpuscular HGB Conc 32.1 g/dl (32-36); Mean Corpuscular Hemoglobin 30.7 pg (26-34); Mean Corpuscular Volume 95.6 fl (80-100); Mean Platelet Volume 9.7 fl (7.4-10.4); Platelet Count Result 379 k/mm3 (150-375); Red Cell Distribution Width 13.4 % (11.5-14.5); White Blood Count 5.7 K/mm3 (4.5-10.0)
[2024-06-02 19:30] LABS: Alanine Aminotransferase 23 U/L (6-35); Albumin Level 4.7 g/dL (3.5-5.1); Alkaline Phosphatase 43 U/L (38-126); Anion Gap 8 mmol/L (4-12); Aspartate Amino Transferase 39 U/L (14-36); Bilirubin,Total 0.6 mg/dL (0.2-1.3); Blood Urea Nitrogen 22 mg/dL (7-17); Calcium 8.8 mg/dL (8.4-10.2); Carbon Dioxide 26 mmol/L (22-30); Chloride 104 mmol/L (98-107); Cholesterol 165 mg/dL (0-200); Estimated Glomerular Filt Rate > 60; Glucose 81 mg/dL (65-110); HDL Direct 55 mg/dL; Potassium 4.3 mmol/L (3.4-5.0); Sodium 138 mmol/L (137-145); Triglycerides 37 mg/dL (<150)
[2024-06-02 19:41] LABS: LDL Cholesterol Direct 101 mg/dL
[2024-06-07 10:34] LABS: Vitamin D 1,25 (OH)2 Total 50 pg/mL (18-72); Vitamin D2 1,25 (OH)2 <8 pg/mL; Vitamin D3 1,25 (OH)2 50 pg/mL
== END 2024-06-02 11:45 | disposition home or self-care (01) ==
LOC: ANHGOSHLAB 11:45
PROVIDERS: PCP Family Medicine; Visit Provider Nurse Practitioner Family
DX: Z00.00 Encounter for general adult medical examination without abnormal findings (principal); E78.5 Hyperlipidemia, unspecified; E55.9 Vitamin D deficiency, unspecified; I10 Essential (primary) hypertension; I73.9 Peripheral vascular disease, unspecified; K21.9 Gastro-esophageal reflux disease without esophagitis; R73.03 Prediabetes; R74.01 Elevation of levels of liver transaminase levels; E53.8 Deficiency of other specified B group vitamins; Z13.29 Encounter for screening for other suspected endocrine disorder
CPT/HCPCS: 36415; 80053; 80061; 82607; 82652; 84443; 85027

== ENCOUNTER 2024-06-17 08:22 | Outpatient (CLI) | payer OTHER, SELFPAY ==
--- NOTE | ~2024-06-17 | US_ITS ---
EXAMINATION:US venous doppler LE BI INDICATION:Peripheral vascular disease TECHNIQUE: Multiple grayscale, color flow and Doppler images of the right and left lower extremity de ep venous systems were obtained and reviewed. COMPARISON:No prior studies for comparison. FINDINGS: The common femoral, superficial femoral and popliteal veins demonstrate normal respiratory variation, augmentation and compressibility. Color flow is also seen within the posterior tibial, pe roneal, greater saphenous and profunda veins. IMPRESSION: 1: No lower extremity deep venous thrombosis. Reviewed, dictated and finalized at location B.
== END 2024-06-17 08:23 | disposition home or self-care (01) ==
LOC: ANHIMG 08:25
PROVIDERS: PCP Family Medicine; Visit Provider Nurse Practitioner Family
DX: I83.893 Varicose veins of bilateral lower extremities with other complications (principal)
CPT/HCPCS: 93970

== ENCOUNTER 2024-06-23 12:33 | Outpatient (CLI) | payer OTHER, SELFPAY ==
[2024-06-23 21:18] LABS: Alanine Aminotransferase 23 U/L (6-35); Albumin Level 4.8 g/dL (3.5-5.1); Alkaline Phosphatase 45 U/L (38-126); Aspartate Amino Transferase 33 U/L (14-36); Bilirubin,Total 0.7 mg/dL (0.2-1.3); Cholesterol 165 mg/dL (0-200); HDL Direct 60 mg/dL; Triglycerides 41 mg/dL (<150)
[2024-06-23 21:59] LABS: LDL Cholesterol Direct 82 mg/dL
[2024-06-25 01:39] LABS: Sex Hormone Binding Globulin 72 nmol/L (17-124)
[2024-06-27 11:28] LABS: Testosterone Free 1 pg/mL (0.1-6.4); Testosterone Total 13 ng/dL (2-45)
== END 2024-06-23 12:34 | disposition home or self-care (01) ==
LOC: ANHGOSHLAB 12:34
PROVIDERS: PCP Family Medicine; Visit Provider Obstetrics & Gynecology
DX: F52.0 Hypoactive sexual desire disorder (principal)
CPT/HCPCS: 36415; 80061; 80076; 84270; 84402; 84403

== ENCOUNTER 2024-07-14 08:51 | Outpatient (CLI) | payer OTHER, SELFPAY ==
[2024-07-14 13:12] LABS: Basophils Percent Auto 0.5 % (0.2-1.2); Eosinophils Absolute Auto 0.1 K/mm3 (0-0.3); Eosinophils Percent Auto 1.3 % (0-4.4); Hematocrit 37.5 % (37.0-47.0); Immature Granulocyte Absolute 0.01 K/mm3 (0.00-0.031); Immature Granulocyte Percent A 0.2 % (0-0.5); Lymphocytes Absolute Auto 1.93 K/mm3 (0.9-3.2); Lymphocytes Percent Auto 34.7 % (18.3-44.2); Mean Corpuscular Hemoglobin 30.8 pg (26-34); Mean Corpuscular Volume 96.2 fl (80-100); Mean Platelet Volume 9.6 fl (7.4-10.4); Monocytes Absolute Auto 0.5 K/mm3 (0.1-0.6); Monocytes Percent Auto 8.3 % (2.6-8.5); Neutrophils Absolute Auto 3.1 K/mm3 (1.3-6.7); Platelet Count Result 360 k/mm3 (150-375); Red Cell Distribution Width 13.3 % (11.5-14.5); White Blood Count 5.6 K/mm3 (4.5-10.0)
[2024-07-14 13:40] LABS: Alanine Aminotransferase 72 U/L (6-35); Albumin Level 4.4 g/dL (3.5-5.1); Alkaline Phosphatase 42 U/L (38-126); Anion Gap 6 mmol/L (4-12); Aspartate Amino Transferase 108 U/L (14-36); Bilirubin,Total 0.4 mg/dL (0.2-1.3); Blood Urea Nitrogen 25 mg/dL (7-17); Calcium 9.1 mg/dL (8.4-10.2); Carbon Dioxide 31 mmol/L (22-30); Chloride 100 mmol/L (98-107); Estimated Glomerular Filt Rate > 60; Glucose 76 mg/dL (65-110); Potassium 4.3 mmol/L (3.4-5.0); Sodium 137 mmol/L (137-145)
== END 2024-07-14 08:52 | disposition home or self-care (01) ==
LOC: ANHGOSHLAB 08:52
PROVIDERS: PCP Family Medicine; Visit Provider Nurse Practitioner Family
DX: Z01.818 Encounter for other preprocedural examination (principal)
CPT/HCPCS: 36415; 80053; 85025

== ENCOUNTER 2024-07-14 09:29 | Outpatient (CLI) | payer OTHER, SELFPAY ==
--- NOTE | ~2024-07-14 | XR_ITS ---
EXAMINATION: XR chest 2V 07/14/2024 09:40 INDICATION: Preprocedural examination PROCEDURE: 2 view chest COMPARISON: 10/18/2020 FINDINGS: The lungs are clear. The cardiomediastinal silhouette is within normal limits. There are no pleural effusions. There is no pneumothorax suspected. IMPRESSION: 1: NO ACUTE CARDIOPULMONARY DISEASE. Reviewed, dictated and finalized at location B.
== END 2024-07-14 09:30 | disposition home or self-care (01) ==
LOC: ANHIMG 09:30
PROVIDERS: PCP Family Medicine; Visit Provider Nurse Practitioner Family
DX: Z01.818 Encounter for other preprocedural examination (principal)
CPT/HCPCS: 36415; 71046; 80053; 85025

== ENCOUNTER 2024-07-22 09:41 | Outpatient (CLI) | payer OTHER, SELFPAY ==
[2024-07-22 11:21] LABS: Alanine Aminotransferase 44 U/L (6-35); Albumin Level 4.4 g/dL (3.5-5.1); Alkaline Phosphatase 39 U/L (38-126); Anion Gap 8 mmol/L (4-12); Aspartate Amino Transferase 44 U/L (14-36); Bilirubin,Total 0.4 mg/dL (0.2-1.3); Blood Urea Nitrogen 16 mg/dL (7-17); Calcium 8.8 mg/dL (8.4-10.2); Carbon Dioxide 28 mmol/L (22-30); Chloride 101 mmol/L (98-107); Estimated Glomerular Filt Rate > 60; Glucose 83 mg/dL (65-110); Potassium 4.2 mmol/L (3.4-5.0); Sodium 137 mmol/L (137-145)
== END 2024-07-22 09:42 | disposition home or self-care (01) ==
LOC: ANHLAB 09:42
PROVIDERS: PCP Family Medicine; Visit Provider Family Medicine
DX: I10 Essential (primary) hypertension (principal)
CPT/HCPCS: 36415; 80053

== ENCOUNTER 2024-12-07 09:24 | Outpatient (CLI) | payer OTHER, SELFPAY ==
[2024-12-07 13:29] LABS: Basophils Percent Auto 0.5 % (0.2-1.2); Eosinophils Absolute Auto 0.1 K/mm3 (0-0.3); Eosinophils Percent Auto 1.7 % (0-4.4); Hematocrit 41.9 % (37.0-47.0); Immature Granulocyte Absolute 0.02 K/mm3 (0.00-0.031); Immature Granulocyte Percent A 0.3 % (0-0.5); Lymphocytes Absolute Auto 2.36 K/mm3 (0.9-3.2); Lymphocytes Percent Auto 40.1 % (18.3-44.2); Mean Corpuscular HGB Conc 33.4 g/dl (32-36); Mean Corpuscular Hemoglobin 31.3 pg (26-34); Mean Corpuscular Volume 93.7 fl (80-100); Mean Platelet Volume 9.3 fl (7.4-10.4); Monocytes Absolute Auto 0.4 K/mm3 (0.1-0.6); Monocytes Percent Auto 7.5 % (2.6-8.5); Neutrophils Absolute Auto 2.9 K/mm3 (1.3-6.7); Neutrophils Percent Auto 49.9 % (45.5-73.1); Platelet Count Result 413 k/mm3 (150-375); Red Blood Count 4.47 M/mm3 (4.2-5.4); Red Cell Distribution Width 13.6 % (11.5-14.5); White Blood Count 5.9 K/mm3 (4.5-10.0)
[2024-12-07 14:05] LABS: Vitamin D 25 Hydroxy 58.5 ng/mL
[2024-12-07 15:13] LABS: Alanine Aminotransferase 30 U/L (6-35); Albumin Level 4.3 g/dL (3.5-5.1); Alkaline Phosphatase 60 U/L (38-126); Anion Gap 5 mmol/L (4-12); Aspartate Amino Transferase 52 U/L (14-36); Bilirubin,Total 0.9 mg/dL (0.2-1.3); Blood Urea Nitrogen 20 mg/dL (7-17); Calcium 8.8 mg/dL (8.4-10.2); Carbon Dioxide 30 mmol/L (22-30); Chloride 102 mmol/L (98-107); Cholesterol 173 mg/dL (0-200); Estimated Glomerular Filt Rate > 60; Glucose 80 mg/dL (65-110); HDL Direct 71 mg/dL; Sodium 137 mmol/L (137-145); Triglycerides 59 mg/dL (<150)
[2024-12-07 15:39] LABS: LDL Cholesterol Direct 90 mg/dL
[2024-12-07 19:31] LABS: Hemoglobin A1C 5.8 % (<5.7)
== END 2024-12-07 09:25 | disposition home or self-care (01) ==
LOC: ANHGOSHLAB 09:25
PROVIDERS: PCP Family Medicine; Visit Provider Family Medicine
DX: Z00.00 Encounter for general adult medical examination without abnormal findings (principal); E53.8 Deficiency of other specified B group vitamins; E55.9 Vitamin D deficiency, unspecified; R74.01 Elevation of levels of liver transaminase levels; I10 Essential (primary) hypertension; E78.5 Hyperlipidemia, unspecified; F98.8 Other specified behavioral and emotional disorders with onset usually occurring in childhood and adolescence; R73.9 Hyperglycemia, unspecified
CPT/HCPCS: 36415; 80053; 80061; 82306; 82607; 83036; 84443; 85025

== ENCOUNTER 2025-02-18 14:30 | Outpatient (RCR) | payer OTHER, SELFPAY ==
--- NOTE | 2025-01-18 11:00 | OPREHPOC ---
Outpatient Therapy Plan of Care This is a Multidisciplinary Plan of Care that may contain components documented by all disciplines (PT, OT, and ST.) PT Problem 1 PT Problem #1 Knowledge Deficit PT Goal 1 Goal / Goal Update Elliott with HEP Target Visit 4 PT Goal 2 Goal / Goal Update Report no pain greater than 2/10 for 2 consecutive weeks Target Visit 8 PT Problem 2 PT Problem #2 Impaired Range of Motion PT Goal 1 Goal / Goal Update 1. Improve ketan hip abduction ROM to 40 degrees to reduce capsular restriction 2. Demonstrate minimal piriformis restriction bilaterally Target Visit 8 PT Problem 3 PT Problem #3 Impaired Strength PT Goal 1 Goal / Goal Update 1. Improve ketan hip flexion strength to 5/5 to improve foot progression with flexion based activity and stair climbing 2. Improve ketan hip abduction strength to 4+/5 to improve lateral hip and knee stability Target Visit 8
--- NOTE | 2025-01-18 11:00 | PTOPEVAL1 ---
Assessment and note entered by Noel Son, PT Evaluation Information Assessment Status Evaluation Diagnosis OAof left knee ICD-10 Condition Codes (PT) Pain in left knee M25.562 Onset 5+ years Subjective Information Reports that she has had progressive increased pain in left knee. She has been lifting and notices increased pain. Most of her pain is with activity and she has been reducing her leg activity. She has also had varicose vein surgery on her left knee. She notes increased pain with peewee up stairs. Pain is mostly localized to her knee. She does occasionally have back pain. She has an MRI on the knee about a month. Reported Pain Level Pain Score 1: Self Report Assessment PT Clinical Summary Patient presents with signs and symptoms consistent with Patellofemoral dysfunction. MRI indicated significant inflammation in lateral knee structures and this is consistent with palpation on this date. Patient will benefit from skilled therapy to address these deficits for improved knee stabilization snd hip mobility to reduce meniscal stress with daily activity. Plan of Care Interventions Electrical Stimulation,Gait Training,Manual Therapy,Neuro Re-education,Therapeutic Activities, Therapeutic Exercise PT Services Indicated Yes Treatment Frequency and 2x/week for 8 visits Duration These treatments will address the objective and functional deficits as defined above. The patient will be advanced safely and appropriately in order for the patient to progress towards his/her prior level of function. Additional exercises will be introduced and as well as a comprehensive home exercise program upon discharge, if needed, ?to ensure carryover of functional gains achieved in the clinic. This treatment plan has been reviewed and agreement upon by the patient.
--- NOTE | 2025-02-02 13:46 | PCPTNOTE ---
Patient called to cancel due to conflicting appointment.
--- NOTE | 2025-02-18 15:28 | OPREHPOC ---
Outpatient Therapy Plan of Care This is a Multidisciplinary Plan of Care that may contain components documented by all disciplines (PT, OT, and ST.) PT Problem 1 PT Problem #1 Knowledge Deficit PT Goal 1 Goal / Goal Update [facility] with HEP Target Visit 4 PT Goal 2 Goal / Goal Update Report no pain greater than 2/10 for 2 consecutive weeks Target Visit 8 Progress Met PT Problem 2 PT Problem #2 Impaired Range of Motion PT Goal 1 Goal / Goal Update 1. Improve ketan hip abduction ROM to 40 degrees to reduce capsular restriction 2. Demonstrate minimal piriformis restriction bilaterally Target Visit 8 Progress Met PT Problem 3 PT Problem #3 Impaired Strength PT Goal 1 Goal / Goal Update 1. Improve ketan hip flexion strength to 5/5 to improve foot progression with flexion based activity and stair climbing 2. Improve ketan hip abduction strength to 4+/5 to improve lateral hip and knee stability Target Visit 8 Progress Met
--- NOTE | 2025-02-18 15:28 | PTOPDC ---
Assessment and note entered by Noel Son, PT Evaluation Information Assessment Status Discharge Diagnosis OAof left knee ICD-10 Condition Codes (PT) Pain in left knee M25.562 Onset 5+ years Subjective Information Reports that overall she is seeing significant pain improvement and improved gross knee mobility. She reports that she is still occasionally getting anterior knee pain. She returned to the gym this week with no issues. Reported Pain Level Pain Score 0: Self Report Assessment PT Clinical Summary Patient has met all goals for therapy and is suitable for discharge to HEP at this time. Patient to continue with HEP and gym regimen. Plan of Care PT Services Indicated Yes
== END 2025-02-21 07:59 | disposition home or self-care (01) ==
LOC: ANHGOSHPT 14:30
PROVIDERS: PCP Family Medicine
DX: M17.12 Unilateral primary osteoarthritis, left knee (principal); M25.562 Pain in left knee; G89.29 Other chronic pain
CPT/HCPCS: 97110; 97161

== ENCOUNTER 2025-02-21 09:03 | Outpatient (CLI) | payer OTHER, SELFPAY ==
--- NOTE | ~2025-02-21 | MM_ITS ---
EXAMINATION: MM screening destiny BI w seven HISTORY: Screening TECHNIQUE: Craniocaudal and mediolateral oblique 3-D tomosynthesis images were obtained and synthetic 2-D images were generated. CAD analysis was submitted and interpreted. COMPARISON: Comparison to multiple prior studies sequentially, with oldest reviewed study dated 08/08. BREAST PARENCHYMAL COMPOSITION: Dense: The breasts are heterogeneously dense, which may obscure small masses FINDINGS: There is focal asymmetry with possible architectural distortion laterally in the left breas t on CC view, posterior third corresponding abnormality is seen on MLO view. The right breast is stab le without evidence for malignancy. IMPRESSION: 1. New focal left breast asymmetry posteriorly and laterally on CC view. Possible associated architec tural distortion. 2. Additional mammographic views and possible breast ultrasound are recommended. BI-RADS Category 0: Incomplete: Needs additional imaging evaluation. Reviewed, dictated and finalized at location A. IMPRESSION: 1. New focal left breast asymmetry posteriorly and laterally on CC view. Possib le associated architectural distortion. 2. Additional mammographic views and possible breast ultrasound are recommended . BI-RADS Category 0: Incomplete: Needs additional imaging evaluation.
--- OUTSIDE RECORDS SUMMARY | 2025-02-21 09:45 | XMS_ITS | Data Portability ---
Author Organization [facility] [place] Address [address] [place] [address] Assessment Encounter Date Assessment Date Assessment LastModified by Organization Details LastModified Time 05/19/2024 05/19/2024 Annual gynecological exam performed. Patient will come back in a year unless there are new symptoms. [email or web address] Not available 05/19/2024 11:31:32 Plan of Treatment Reminders Order Date Submit Date Provider Last Modified By Organization Details Last Modified Time Details Appointments None recorded. Lab testosteron e free/testos terone total, ratio, serum 2023 024 [facility] (Lab), [address] [place], [address], 4 11:37:53 CMP, serum or plasma 2023 024 [facility] (Lab), [address], [place], [address], 4 11:37:52 testosteron e, free + total, serum 2023 024 [facility] [address], [place], [address], 5 05:01:40 shbg (sex hormone-bin ding globulin), serum 2023 024 KYLEE [facility] [place], [address] [place] [address] [address], [place], [address], 5 05:01:19 lipid panel, serum 2023 024 [facility] [place], [address] [facility] [address], [place], [address], 5 05:01:40 hepatic function panel, serum 2023 024 [facility] [place], [address] [facility] [address], [place], [address], 5 05:01:40 dhea-sulfat e, serum 2023 024 [facility] (Lab), [address], [place], [address], 4 13:45:46 hormone panel, serum or plasma 2023 024 [facility] (Lab), [address], [place], [address], 4 13:48:15 progesteron e, serum 2023 024 [facility] (Lab), [address], [place], [address], 4 13:47:02 prolactin, serum 2023 024 [facility] (Lab), [address], [place], [address], 4 13:47:04 shbg (sex hormone-bin ding globulin), serum 2023 024 [facility] (Lab), [address] [place], [address], 4 13:47:05 TSH, serum or plasma 2023 024 [facility] (Lab), [address], [place], [address], 4 13:47:00 testosteron e free/testos terone total, ratio, serum 2023 024 [facility] (Lab), [address], [place], [address], 13:48:16 Referral None recorded. Procedures None recorded. Surgeries None recorded. Imaging US, transvagina l 2024 [address], [address], [place], [address], 5 19:57:23 US, pelvis 2023 [address], [address], [place], [address], 18:06:31 US, transvagina l 2023 [address], [address], [place], [address], 18:06:31 Medication Orders None recorded. Patient TargetsNo targets recorded. Patient InstructionsNo instructions recorded. Reason for Referral None Reported. Results Created Date Observation Date Name Description Value Unit Range Abnormal Flag Note LastModifiedBy Organization Detail LastModifiedTime 05/19/2005/19/2024 DHEA SULFA TE DHEA sulfate CANCEL LED Store d at [facility] e Not Available [facility] (Lab) [address], [place], [address], 05/21/2024 13:45:46 05/19/20 24 05/19/2024 TSH, REFLE X FREE T4 TSH, reflex free T4 CANCEL LED Store d at [facility] rect [facility] e Not Available [facility] (Lab) [address], [place], [address], 05/21/2024 13:47:00 05/19/20 24 05/19/2024 PROGE STERO NE progesterone CANCEL LED Store d at [facility] [place] [facility] e Not Available [facility] (Lab) [address] [facility], [place], [address], 05/21/2024 13:47:02 05/19/20 24 05/19/2024 PROLA CTIN prolactin CANCEL LED Store d at [facility] [place] [facility] e Not Available [facility] (Lab) [address] [facility], [place], [address], 05/21/2024 13:47:04 05/19/20 24 05/19/2024 HUMAN SEX HORMO NE MINDY NG GLOBU FRANKO human sex hormone binding globulin CANCEL LED Store d at [facility] [place] [facility] e Not Available [facility] (Lab) [address] [facility], [place], [address], 05/21/2024 13:47:05 05/19/20 24 05/19/2024 FSH, LH, ESTRA DIOL FSH, LH, estradiol CANCEL LED Store d at [facility] [place] [facility] e Not Available [facility] (Lab) [address] [facility], [place], [address], 05/21/2024 13:48:15 05/19/20 24 05/19/2024 TESTO STERO NE, FREE( DIALY SIS) AND TOTAL (LC/M S/MS) testosterone , free/total lc/MS/MS CANCEL LED Store d at [facility] [place] [facility] e Not Available [facility] (Lab) [address] [place], [address], 05/21/2024 13:48:16 05/19/20 24 05/19/2024 TESTO STERO NE, FREE( DIALY SIS) AND TOTAL (LC/M S/MS) testosterone , total 16 NG/dL 2-45 For addit ional infor hipolito tatum e refer to http: //laurita crews.mark stdia gnost ics.c om/fa q/ Total Testo stero neLCM [facility] Q[facility] (This link is being provi ded for infor matio nal/ educa rox l purpo ses only. ) This test was devel oped and its laine tical perfo rmanc e sofia cteri stics have been deter mined by [employer] [facility] [facility] [place], [place]. It has not been clear ed or appro shanita by the U.S. Food and Drug Admin istra tion. This assay has been valid ated pursu ant to the CLIA regul ation s and is used for clini onofre purpo ses. Not Available [facility] (Lab) [address] [facility], [place], [address], 05/25/2024 14:13:09 05/19/2005/19/2024 TESTO STERO NE, FREE( DIALY SIS) AND TOTAL (LC/M S/MS) testosterone , free 0.9 pg/mL 0.1-6. 4 This test was devel oped and its laine tical perfo rmanc e sofia cteri stics have been deter mined by [facility] [employer] [facility] [facility] Serge ls [facility] [place], [place]. It has not been clear ed or appro shanita by the U.S. Food and Drug Admin istra tion. This assay has been valid ated pursu ant to the CLIA regul ation s and is used for clini onofre purpo ses. Perfo rming Organ izati on [facility] n: Site ID: AMD Name: [employer] sofia s Serge ls Insti tute Addre ss: [id number] [address] [place], [place] Direc tor: Kiran Suggs MD PhD Not Available [facility] (Lab) [address] [facility], [place], [address], 05/25/2024 14:13:09 05/19/20 24 05/19/2024 IMAGE GUIDE D PAP AND HPV REGAR DLESS image guided Pap, HPV regardless of Pap result SEE RESULT S BELOW CASE REPOR T: Cytol ogy Gynec ologi onofre Repor t Case: [id number] Aut[employer] federico salazar Provi shawna: Miryam Mantilla NP Colle cted: 05/19 1333 Order ing Locat ion: [place] Patho logdarinel Recei shanita: 05/21 First Kamilla n: Justa De La Rosa Speci men: Kamilla corrigan Pap - Image d, Cervi x STATE MENT OF ADEQU ACY: Satis facto ry for evalu ation Trans forma tion zone compo nent prese nt ----- ----- ----- ----- ----- ----- ----- ----- ----- ----- ----- ----- ----- ----- ----- ----- ----- ---- FINAL DIAGN OSIS: Negat betty for Intra epith elial Lesmarcos crews or Nelson rojas ([facility]) . Elect kendall jennings by Justa De La Rosa on 024 at 2:14 PM ----- ----- ----- ----- ----- ----- ----- ----- ----- ----- ----- ----- ----- ----- ----- ----- ----- ---- HPV RESUL TS: HPV mRNA E6/E7 : No HPV mRNA Detec jose NOTE: This high risk HPV mRNA assay detec ts fourt een high- risk HPV types (16, 18, 31, 33, 35, 39, 45, 51, 52, 56, 58, 59, 66, 68) witho ut diffe renti ation . COMME NT: This speci men was revie wed by a Cytot echno logis t and/o r Patho logis t (as indic ated in this repor t) after evalu ation using the Thinp rep Imagi ng Syste m. CLINI ONOFRE INFOR MATIO N: Menst rual Statu s: LMP (if appli cable ): Clini onofre Histo ry/Pr eviou s Pap: Type of Neopl ibeth (if appli cable ): Signi fican t Clini onofre Findi ngs: Other Histo ry: Hormo good (if appli cable ): PAP EDUCA ROX L NOTE: The Pap Test is a scree meenu test with an inher ent false negat betty rate. Liqui d-bas ed sampl ing may decre ase, but will not elimi tiera, false negat betty resul ts. A negat betty resul t does not precl ude the prese nce and/o r devel opmen t of disea se, since the prese nce of abnor mal cells in the sampl e depen ds on the locat ion of the lesio n and sampl ing techn ique. Riaz nued regul ar scree meenu is the best metho d of cance r preve ntion . If repor jose cytol ogic findi ng do not corre late with physi onofre and/o r histo rical findi ngs, furth er inves tigat ion is recom chauncey d, as clini amyte warra nted. Not Available [facility] (Lab) [address] [facility], [place], [address], 05/25/2024 15:18:14 06/02/20 24 06/02/2024 DHEA SULFA TE DHEA-sulfate 193 ug/dL Femal e Range s Age(y ) Range (ug/d L) 10-15 34-28 0 15-20 65-36 8 20-25 148-4 07 25-35 99-34 0 35-45 61-33 7 45-55 35-25 6 55-65 19-20 5 65-75 9-246 > 75 12-[address] [facility] (Lab) [address] [facility], [place], [address], 06/06/2024 22:21:53 06/02/20 24 06/02/2024 PROGE STERO NE progesterone 0.52 NG/mL This assay was perfo rmed using [facility] [employer] ratio n reage nts and test kits. Value s obtai ricky with other assay metho ds or kits canno t be used inter [facility] e[facility] . Femal e Proge stero ne Range s: Folli cular phasE 0.06- 0.89 ng/mL Ovula tion phasE 0.12- 12.00 ng/mL Lutea l phasE 1.83- 23.90 ng/mL Postm enopa usal <0.05 -0.13 ng/mL Healt hy Pregn ant Women 1st Trime ster 11.0- 44.30 2nd Trime ster 25.40 -83.3 0 3rd Trime ster 58.70 -214. [address] [facility] (Lab) [address] [place], [address], 06/06/2024 22:21:53 06/02/20 24 06/02/2024 PROLA CTIN prolactin, total 16.20 NG/mL 4.79-2 3.30 This assay was perfo rmed using [employer] [facility] ratio n reage nts and test kits. Value s obtai ricky with other assay metho ds or kits canno t be used [place] . Not Available [facility] (Lab) [address] [place], [address], 06/06/2024 22:21:53 06/02/20 24 06/02/2024 FSH, LH, ESTRA DIOL estradiol 11.6 pg/mL This assay was perfo rmed using [employer] ratio n reage nts and test kits. Value s obtai ricky with other assay metho ds or kits canno t be used inter [facility] . Femal e Estra diol Range s: Folli cular phasE 12.4- 233 pg/mL Ovula tion phasE 41.0- 398 pg/mL Lutea l phasE 22.3- 341 pg/mL Postm enopa usal <5-13 8 pg/mL Healt hy Pregn ant Women 1st Trime ster 154-3 243 pg/mL 2nd Trime ster 1561- 49179 pg/mL 3rd Trime ster 8525- >3000 0 pg/mL Not Available [facility] (Lab) [address] [place], [address], 06/06/2024 22:21:54 06/02/20 24 06/02/2024 FSH, LH, ESTRA DIOL FSH 30.4 mIU/m L This assay was perfo rmed using [employer] ratio n reage nts and test kits. Value s obtai ricky with other assay metho ds or kits canno t be used inter [facility] . Femal es Folli cular : 3.5-1 2.5 mIU/m L Ovula tion: 4.7-2 1.5 mIU/m L Lutea l: 1.7-7 .7 mIU/m L Postm enopa use: 25.8- 134.8 mIU/m L Not Available [facility] (Lab) [address] [facility], [place], [address], 06/06/2024 22:21:54 06/02/20 24 06/02/2024 FSH, LH, ESTRA DIOL LH 11.8 mIU/m L This assay was perfo rmed using [employer] [facility] ratio n reage nts and test kits. Value s obtai ricky with other assay metho ds or kits canno t be used inter [facility] . Femal es Mid-F ollic ular: 2.4-1 2.6 mIU/m L Mid-C ycle: 14.0- 95.6 mIU/m L Mid-L uteal : 1.0-1 1.4 mIU/m L Postm enopa use: 7.7-5 8.5 mIU/m L Not Available [facility] (Lab) [address] [facility], [place], [address], 06/06/2024 22:21:54 06/02/20 24 06/02/2024 TSH, REFLE X FREE T4 TSH 2.30 uIU/m L 0.30-[address] [facility] (Lab) [address] [facility], [place], [address], 06/06/2024 22:21:54 06/02/20 24 06/02/2024 HUMAN SEX HORMO NE MINDY NG GLOBU FRANKO sex hormone binding globulin 73.2 nmole s/L 18.2-[address] [facility] (Lab) [address] [facility], [place], [address], 06/06/2024 22:21:55 06/02/20 24 06/02/2024 TESTO STERO NE, FREE( DIALY SIS) AND TOTAL (LC/M S/MS) testosterone , total 13 NG/dL 2-45 For addit ional bozenar hipolito tatum e refer to http: //[facility] williamque stdia gnost ics.c om/fa q/ Total Testo stero neLCM SMSFA Q165 (This link is being provi ded for infor matmarcos nal/ educa rox l purpo ses only. ) This test was devel oped and its laine tical perfo rmanc e sofia cteri stics have been deter mined by [employer] [facility] [facility] [place] It has not been clear ed or appro shanita by the U.S. Food and Drug Admin istra tion. This assay has been valid ated pursu ant to the CLIA regul ation s and is used for clini onofre purpo ses. Not Available [facility] (Lab) [address] [facility], [place], [address], 06/06/2024 22:21:55 06/02/20 24 06/02/2024 TESTO STERO NE, FREE( DIALY SIS) AND TOTAL (LC/M S/MS) testosterone , free 1.1 pg/mL 0.1-6. 4 This test was devel oped and its laine tical perfo rmanc e sofia cteri stics have been deter mined by [employer] Serge ls [employer] [facility], [place]. It has not been clear ed or appro shanita by the U.S. Food and Drug Admin istra tion. This assay has been valid ated pursu ant to the CLIA regul ation s and is used for clini onofre purpo ses. Perfo rming Organ izati on [facility]: Site ID: AMD Name: [employer] ostic s Serge ls [employer] [place]i monie Addre ss: [id number] [place], [place] Direc tor: Kiran Suggs MD PhD Not Available [facility] (Lab) [address] [facility], [place], [address], 06/06/2024 22:21:55 08/16/20 24 08/16/2024 CMP(C OMPRE HENSI VE METAB OLIC PANEL ) sodium 140 mmol/ L 133-[address] [facility] (Lab) [address] [facility], [place], [address], 08/22/2024 11:37:52 08/16/20 24 08/16/2024 CMP(C OMPRE HENSI VE METAB OLIC PANEL ) potassium 4.7 mmol/ L 3.5-5. [address] [facility] (Lab) [address] [facility], [place], [address], 08/22/2024 11:37:52 08/16/20 24 08/16/2024 CMP(C OMPRE HENSI VE METAB OLIC PANEL ) chloride 103 mmol/ L 98-[address] [facility] (Lab) [address] [facility], [place], [address], 08/22/2024 11:37:52 08/16/20 24 08/16/2024 CMP(C OMPRE HENSI VE METAB OLIC PANEL ) carbon dioxide 32 mmol/ L 21-[address] [facility] (Lab) [address] [facility], [place], [address], 08/22/2024 11:37:52 08/16/20 24 08/16/2024 CMP(C OMPRE HENSI VE METAB OLIC PANEL ) anion gap 5 mmol/ L 4-[address] [facility] (Lab) [address] [facility], [place], [address], 08/22/2024 11:37:52 08/16/20 24 08/16/2024 CMP(C OMPRE HENSI VE METAB OLIC PANEL ) blood urea nitrogen 24 mg/dL 7-[address] [facility] (Lab) [address], [place], [address], 08/22/2024 11:37:52 08/16/20 24 08/16/2024 CMP(C OMPRE HENSI VE METAB OLIC PANEL ) creatinine 0.72 mg/dL 0.60-[address] [facility] (Lab) [address], [place], [address], 08/22/2024 11:37:52 08/16/20 24 08/16/2024 CMP(C OMPRE HENSI VE METAB OLIC PANEL ) egfrcr (CKD-epi 2020) >90 mL/mi n/1.7 3_m2 >=[address] [facility] (Lab) [address], [place], [address], 08/22/2024 11:37:52 08/16/20 24 08/16/2024 CMP(C OMPRE HENSI VE METAB OLIC PANEL ) calcium 9.1 mg/dL 8.3-[address] [facility] (Lab) [address], [place], [address], 08/22/2024 11:37:52 08/16/20 24 08/16/2024 CMP(C OMPRE HENSI VE METAB OLIC PANEL ) glucose 92 mg/dL 70-[address] [facility] (Lab) [address], [place], [address], 08/22/2024 11:37:52 08/16/20 24 08/16/2024 CMP(C OMPRE HENSI VE METAB OLIC PANEL ) protein, total 6.7 g/dL 6.4-8. [address] [facility] (Lab) [address], [place], [address], 08/22/2024 11:37:52 08/16/20 24 08/16/2024 CMP(C OMPRE HENSI VE METAB OLIC PANEL ) albumin 4.6 g/dL 3.5-5. [address] [facility] (Lab) [address] [facility], [place], [address], 08/22/2024 11:37:52 08/16/20 24 08/16/2024 CMP(C OMPRE HENSI VE METAB OLIC PANEL ) ALT 27 units /L 9-[address] [facility] (Lab) [address] [facility], [place], [address], 08/22/2024 11:37:52 08/16/20 24 08/16/2024 CMP(C OMPRE HENSI VE METAB OLIC PANEL ) alkaline phosphatase 50 units /L 34-[address] [facility] (Lab) [address] [facility], [place], [address], 08/22/2024 11:37:52 08/16/20 24 08/16/2024 CMP(C OMPRE HENSI VE METAB OLIC PANEL ) AST 21 units /L 13-[address] [facility] (Lab) [address] [facility], [place], [address], 08/22/2024 11:37:52 08/16/20 24 08/16/2024 CMP(C OMPRE HENSI VE METAB OLIC PANEL ) bilirubin, total 0.4 mg/dL 0.2-1. [address] [facility] (Lab) [address] [facility], [place], [address], 08/22/2024 11:37:52 08/16/20 24 08/16/2024 TESTO STERO NE, FREE( DIALY SIS) AND TOTAL (LC/M S/MS) testosterone , total 18 NG/dL 2-45 For addit ional infor hipolito tatum e refer to http: //laurita crews.que stdia gnost ics.c om/fa q/ Total Testo stero neLCM [facility] Q[facility] (This link is being provi ded for infor christa villegas/ educa rox l purpo ses only. ) This test was devel oped and its laine tical perfo rmanc e sofia cteri stics have been deter mined by [facility] [employer] s [place], [place]. It has not been clear ed or appro shanita by the U.S. Food and Drug Admin istra tion. This assay has been valid ated pursu ant to the CLIA regul ation s and is used for clini onofre purpo ses. Not Available [facility] (Lab) [address], [place], [address], 08/22/2024 11:37:53 08/16/20 24 08/16/2024 TESTO STERO NE, FREE( DIALY SIS) AND TOTAL (LC/M S/MS) testosterone , free 1.4 pg/mL 0.1-6. 4 This test was devel oped and its laine tical perfo rmanc e sofia cteri stics have been deter mined by [employer] s [place], [place]. It has not been clear ed or appro shanita by the U.S. Food and Drug Admin istra tion. This assay has been valid ated pursu ant to the CLIA regul ation s and is used for clini onofre purpo ses. Perfo rming Organ izati on Infor christa n: Site ID: AMD Name: [employer] sofia s Serge ls [facility] Addre ss: [id number] [place], [place] Direc tor: Kiran Suggs MD PhD Not Available [facility] (Lab) [address], [place], [address], 08/22/2024 11:37:53 06/02/2006/02/2024 US, pelvi s No observ ation record ed. [email or web address] [place] [address], [place], [address], 06/02/2024 18:14:47 06/02/20 24 06/02/2024 US, trans vagin al No observ ation record ed. [email or web address] [place] [address], [place], [address], 06/02/2024 18:14:38 06/02/20 24 06/02/2024 US, pelvi s No observ ation record ed. [email or web address] Herrera [address], [place], [address], 06/10/2024 09:04:41 12/08/19 25 12/08/2024 US, trans vagin al No observ ation record ed. [email or web address] [place] [address], [place], [address], 12/08/2024 14:36:12 12/08/19 25 12/08/2024 US, trans vagin al No observ ation record ed. KYLEE Herrera [address], [place], [address], 12/12/2024 11:58:47 Result Notes None recorded. Procedures Surgical History Date Name Laterality Status Provider Name and Address Organization Details Recorded Time 05/19/20 24 Date of Last Pap Smear completed [facility] 08/16/2024 15:11:28 05/11/20 24 Most Recent Bone Density completed [facility] 05/19/2024 11:39:47 02/09/20 24 Date of Last Mammogram completed [facility] 05/19/2024 11:38:14 05/24/20 23 Date of Last Colonoscopy completed [facility] 05/19/2024 11:39:09 05/24/20 23 repair of musculotendinous cuff of shoulder completed [facility] 05/19/2024 11:43:30 12/25/19 15 procedure on gallbladder completed [facility] 05/19/2024 11:43:45 Imaging Results Imaging Date Name Status LastModified by Organization Details LastModified Time 06/02/2024 US, pelvis completed [email or web address] [place] [address], [place], [address], 06/02/2024 18:14:47 06/02/2024 US, transvaginal completed [email or web address] [place] [address], [place], [address], 06/02/2024 18:14:38 06/02/2024 US, pelvis completed [email or web address] Sharon [address], [place], [address], 06/10/2024 09:04:41 12/08/2024 US, transvaginal completed [email or web address] [place] [address], [place], [address], 12/08/2024 14:36:12 12/08/2024 US, transvaginal completed KYLEE Sharon [address], [place], [address], 12/12/2024 11:58:47 Procedure Notes None recorded. Medical Equipment None Reported. Allergies No known drug allergies Medications Name Sig Start Date Stop Date Status Note LastModified by Organization Details LastModified Time levocarniti ne and tirzepatide 100mg, 10mg/ml injectable #155 INJECT 15 MG SQ WEEKLY active Not Available Not Available No t Available tretinoin 0.1 % topical cream APPLY ONE APPLICATI ON TOPICALLY EVERY DAY AT BEDTIME active Not Available Not Available No t Available Adderall 20 mg tablet Take 1 tablet every day by oral route. active Not Available Not Available No t Available oxybutynin chloride ER 10 mg tablet,exte nded release 24 hr TAKE 1 TABLET BY MOUTH ONCE DAILY 05/19 completed Not Available Not Available Not Available hydrocodone 5 mg-acetamin ophen 325 mg tablet TAKE 1 TABLET BY MOUTH TWICE DAILY NEEDED FOR PAIN 05/19 completed Not Available Not Available Not Available amlodipine 5 mg tablet TAKE 1 TABLET BY MOUTH ONCE DAILY active Not Available Not Available No t Available tramadol 50 mg tablet TAKE 1 TABLET BY MOUTH TWICE DAILY NEEDED FOR PAIN 08/16 completed Not Available Not Available Not Available phentermine 30 mg capsule TAKE 1 CAPSULE BY MOUTH ONCE DAILY MUST TAKE 2 HOURS AFTER BREAKFAST 05/19 completed Not Available Not Available Not Available ciclopirox 8 % topical solution APPLY 1 APPLICATI ON TOPICALLY EVERY DAY AT BEDTIME 08/16 completed Not Available Not Available Not Available oxycodone-a cetaminophe n 5 mg-325 mg tablet TAKE 1 TO 2 TABLETS BY MOUTH EVERY 4 HOURS NEEDED FOR PAIN. MAX 6 TABS PER DAY active Not Available Not Available No t Available magnesium oxide 400 mg (241.3 mg magnesium) tablet TAKE 1 TABLET BY MOUTH ONCE DAILY active Not Available Not Available No t Available dextroamphe tamine-amph etamine ER 20 mg 24hr capsule,ext end release TAKE 1 CAPSULE BY MOUTH IN THE MORNING active Not Available Not Available No t Available dextroamphe tamine-amph etamine ER 10 mg 24hr capsule,ext end release active Not Available Not Available Not Available diazepam 5 mg tablet TAKE 1 TABLET BY MOUTH ONCE DAILY NEEDED FOR MUSCLE SPASM 05/19 completed Not Available Not Available Not Available testosteron e 1 % (50 mg/5 gram) transdermal gel packet TESTOSTER ONE 5% CREAM (P#[id number]) (TESTOSTE RAMÓN MICRONIZE D YAM YAM CRYSTALS, GLYCERIN LIQUID, VERSABASE )Note: This version of the drug name will be sent back to the pharmacy. Sig APPLY TWO CLICKS (0.1ML OR 5MG) TOPICALLY TO EACH INNER THIGH DIRECTED NOT TO EXCEED 4 CLICKS EVERY 24 HOURS (10MG) 2024 active Not Available Not Available Not Avai lable testosteron e 1.62 % (40.5 mg/2.5 gram) transdermal gel packet APPLY TWO CLICKS (0.1 ML OR 5MG) TOPICALLY TO EACH INNER THIGH DIRECTED NOT TO EXCEED 4 CLICKS EVERY 24 HOURS (10MG) 2024 active Not Available Not Available Not Avai lable naloxone 4 mg/actuatio n nasal spray CALL 911. ADMINISTE R A SINGLE SPRAY INTRANASA LLY INTO ONE NOSTRIL UPON SIGNS OF OPIOID OVERDOSE. MAY REPEAT AFTER 3 MINUTES IF NO RESPONSE. 05/19 completed Not Available Not Available Not Available testosteron e enanthate 100 mg/0.5 mL subcutaneou s auto-inject or active Not Available Not Available Not Available tirzepatide active Not Available Not A vailable Not Available Vitals Date Recorded Body weight Body mass index (BMI) Body height Systolic blood pressure Diastolic blood pressure Provider Name and Address Organization Details Last Updated DateTime 05/19/2024 33055.45 g 26.7 kg/m2 160.02 cm 131 mm[Hg] 79 mm[Hg] Raine Story [facility] 4 11:33:42 Date Recorded Body height Body mass index (BMI) Body weight Systolic blood pressure Diastolic blood pressure Provider Name and Address Organization Details Last Updated DateTime 06/09/2024 160.02 cm 25.6 kg/m2 36227.18 g 118 mm[Hg] 77 mm[Hg] Evy Collins [facility] 4 10:17:07 Date Recorded Body height Body mass index (BMI) Body weight Systolic blood pressure Diastolic blood pressure Provider Name and Address Organization Details Last Updated DateTime 08/16/2024 160.02 cm 24.4 kg/m2 59645.75 g 123 mm[Hg] 80 mm[Hg] Raine Story [facility] 4 15:10:22 Social History Question Answer Notes LastModified by Organizat ion Details LastModified Time Tobacco Smoking Status [facility]24 11:42:32 What Is Your Level Of Alcohol Consumption? Occasional [email or web address] Information not available 05/19/2024 Are You Blind Or Do You Have Difficulty Seeing? No Information not available 05/19/2024 In The 14 Days Before Symptom Onset, Have You Had Close Contact With A Laboratory-confir med COVID-19 While That Case Was Ill? No Information not available 05/19/2024 In The 14 Days Before Symptom Onset, Have You Had Close Contact With A Person Who Is Under Investigation For COVID-19 While That Person Was Ill? No [email or web address] Information not available 05/19/2024 Have You Been To An Area Known To Be High Risk For COVID-19? No [email or web address] Information not available 05/19/2024 Are You Deaf Or Do You Have Serious Difficulty Hearing? No [email or web address] Information not available 05/19/2024 What Type Of Diet Are You Following? REGULAR [email or web address] Information not available 05/19/2024 Do You Use Your Seat Belt Or Car Seat Routinely? Yes [email or web address] Information not available 05/19/2024 Are You Sexually Active? Yes [email or web address] Information not available 05/19/2024 Do You Have Smoke And Carbon Monoxide Detectors In Your Home? Yes [email or web address] Information not available 05/19/2024 Do You Use Any Illicit Or Recreational Drugs? No [email or web address] Information not available 05/19/2024 Do You Use Sunscreen Routinely? Yes [email or web address] Information not available 05/19/2024 Sex: Unknown Functional Status Question Answer Note LastModified by Organizat ion Details LastModified Time Do you have difficulty walking or climbing stairs? No [email or web address] Information not available 05/19/2024 Are you able to walk? YESWOREST [email or web address] Information not available 05/19/2024 Are you able to care for yourself? Yes [email or web address] Information not available 05/19/2024 Do you have difficulty dressing or bathing? No [email or web address] Information not available 05/19/2024 Mental Status None recorded. Family History Relationship Description Onset Age of this Age Resolved Age Notes LastModified by Organization Details LastModified Time Maternal Uncle Diabetes mellitus [email or web address] Not available 2023 11:41:54 Mother Hypertensive disorder [email or web address] Not available 2023 11:42:02 Sister Hypertensive disorder [email or web address] Not available 2023 11:42:09 Medical History Condition Response Allergies (Food, seasonal, environmental ) N Other N Breast Cancer N Drug/Latex Allergies/Reactions N Blood Transfusion N Dermatologic Disorders N Lung Disease N Defects or Inherited Disease N Breast Problem N Gestational Diabetes N Hematologic disorders N Anesthesia Complications N History of STI N Deep Vein Thrombosis N Polycystic ovary syndrome N Anxiety Disorder N Autoimmune disease N Arthritis N Infertility N Polyps N Acid Reflux (GERD) N History of abnormal pap N Cancer N Stroke N Varicosities N Neurologic/Epilepsy N Endometriosis N High Cholesterol N Headaches N Fibromyalgia N Kidney Disease N Heart Problems N Kidney or Bladder Problems N Thyroid Problems N GI Problems N Eating Disorder N Anemia N Art (IVF or FET) N Psychiatric Illness N Ovarian Cancer N Diabetes N Pulmonary (TB, Asthma) N Hepatitis/Liver Disease N No Past Medical History N Eczema N Urinary Tract Infection N Abuse/Domestic Violence N Asthma N Trauma/Violence N Depression/ depression N Heart Disease N Pre-Eclampsia N Hypertension Y Osteoporosis N Thrombophilias N Gynecological History Statement/Question Response Abnormal Pap N Date of Last Mammogram 02/09/2024 Date of LMP 06/25/2024 Was last menstrual period normal Y STIs/STDs N HPV Vaccine N Current Control Method IUD Age at First Child 24 Are cycles usually normal Y Date of Last Colonoscopy 05/24/2023 Most Recent Bone Density 05/11/2024 Sexually Active? Y Age of first menstrual cycle 13 Date of Last Pap Smear 05/19/2024 Sexual Problems? N Desired Control Method IUD LMP Approximate Obstetrics History GPAL:G 3 P 3 0 0 3 Type Value Full Term 3 Living 3 Total 3 Past Encounters Encounter ID Performer Location Encounter Start Date Encounter Closed Date Diagnosis/Indication Diagnosis SNOMED-CT Code Diagnosis ICD10 Code Diagnosis Note [id number] AMANDA Irene [place] [address] [address] 05/19/2024 11:03:53 05/19/2024 12:10:32 Gynecologic examination 67577372 Z01.419 WWEBC - ParaGuard IUD, inserted around 7 yrs agopap updateddec lined STI screenmamm ogram UTDcolonos copy UTDroutine labs/PCP It is strongly advised to have an annual flu shot and up can obtain at most pharmacies . If you have not had a TDap shot in the last 10 years you should obtain one as well. Discussed with patient & provided with informatio n regarding HPV vaccine if applicable . Encourage safe sexual practices, to use condoms and limit partners if not already in a monogamous relationsh ip. Do monthly self breast exams. Have yearly mammograms , stay up to date on colon cancer screening. BRCA testing is now available for patients with strong genetic history of female cancer. If interested contact the office. Engage in regular exercise. Avoid tobacco and illicit drugs. This lifestyle behavior pattern will lead to less health conditions and longer life span. If BMI greater than 25 dietary consult advised. Patient received above instructio ns, and questions have been answered. If you have any questions please call or respond to this email. Patient was made aware of the patient portal and may obtain a paper copy of today's plan if desired. Lesion of cervix 8434605 01 N88.9 cervical polyp noted on examwill obtain labs and pelvic u/s d/t irregular periods (discussed paraguard SE's, possible perimenopa use, polyp, etc)discus sed polyp removal pending u/squestio ns answered Time spent in visit is a total of 30 mins with at least 50% of visit consisting of counseling and review of plan of care. Irregular periods 132700 07 N92.6 Abnormal u terine bleeding [id number] 9100 N93.9 [id number] [facility] [address] [address] 06/02/2024 11:44:14 06/02/2024 13:09:04 Abnormal uterine bleeding 6662427410 9100 N93.9 N84.1 [id number] MAO MATTHEWS MD [place] [address] [address] 06/09/2024 09:55:56 06/09/2024 15:03:00 Lack or loss of sexual desire 374394448 F52.0 - patient reports no active or reactive sexual desire- no dyspareuni a or inciting event- distressin g, causing problems for patient- discussed expectant management vs counseling sources like [facility] vs medical management - given patient's likely perimenopa usal status based on labwork, could trial testostero ne cream for hypoactive sexual desire disorder- will check baseline labs as below- if no improvemen t in symptoms in 6-8 weeks and normal labs, would recommend d/c due to nonrespons e. Polyp of cervix 89909462 N84.1 - noted on most recent pelvic exam- asymptomat ic- no evidence of large polyp on pelvic US- discussed removal vs expectant management , patient desires expectant management at this time Irregular periods 630873 07 N92.1 - patient reports 1 year of irregular periods, sometimes 2x in one month, sometimes skipping months- denies medication changes- Copper IUD in place x8 years- pelvic US wnl, IUD correctly placed, thin uterine lining- labwork c/w perimenopa use, likely cause of irregular periods- discussed natural course of perimenopa use, including irregular and missed periods- recommend keeping IUD in place until time for removal or until 1 year from last period- patient voices understand ing with plan Cyst of ovary 50815714 N 83.292 - small complex cyst on L ovary, 1.5x2cm- asymptomat ic- recommend repeat US in 6 months to reevaluate [id number] Ott [place] [address] [address] 12/08/2024 12:35:13 12/08/2024 13:30:23 Cyst of left ovary [id number] N83.202 [id number] MAO MATTHEWS MD [place] [address] [address] 08/16/2024 15:02:01 08/16/2024 15:42:02 Lack or loss of sexual desire 338425769 F52.0 - Hypoactive sexual desire disorder- previous hx of no active or reactive sexual desire- no dyspareuni a or inciting event- distressin g, causing problems for patient- patient reports vast improvemen t in symptoms, compliant with testostero ne therapy- will recheck labs today- ok to continue Health Concerns Section Related Observation LastModified by Organization Detai ls LastModified Time None Recorded Concern Status LastModified by Organization Details LastModified Time None Recorded Advance Directives Directive None Recorded Payers Encounter Date Sequence Insurance Name Policy Number Policy George Covered Member ID George Member ID Guarantor Name 05/19/2024 1 [facility] (MEDICAID HMO) [id number] Brandee Hair [id number] Brandee Hair 06/02/2024 1 [employer] [facility] [place] ([place] [id number] Brandee Hair [id number] Brandee Hair 06/09/2024 1 [employer] [facility] [place] [id number] Brandee Hair [id number] Brandee Hair 08/16/2024 1 [employer] [facility] [place] [id number] Brandee Hair [id number] Brandee Hair 12/08/2024 1 [employer] [facility] [place] [id number] Brandee Hair [id number] Brandee Hair Notes Date Note Type Note Provider Name and Address Organization Details Recorded Time 05/19/2024 text/html Annual GYNReport ed bypatient.Menstrual cycle:Normal menses Urinary symptoms:No hematuria; No incontinence Vulva:No genital lesion Vagina:Normal vaginal discharge Breast:No breast pain; No breast lump; No nipple discharge Current Contraception:Intraut erine device (iud); ParaGuard IUD, inserted around 7 yrs ago per pt Sexual complaints:No sexual complaints; No pain during intercourse; Normal libido Menopausal Symptoms:No menopausal symptoms; Normal vaginal lubrication Psychological symptoms:No depression; No anxiety; No PMDD Preventive measures:Encourage self breast examination; Encourage regular exercise; Encourage no tobacco use; Encourage regular mammograms starting age 42Notes:48yo [id number] h/o abnormal papslast pap 08/2022 - normal per ptBC : Paraguard - inserted around 7 yrs agoSA with steady partnermammogram last olonoscopy last 05/2023 Period irregular for the past 1 yr. Has skipped some months, other months has had 2 period in one month, spotting between periods at times, increased cramping. neg vaginal d/c, odors, itching AMANDA Irene [address], [place], [address], [facility] 05/19/2024 12:09:53 06/09/2024 text/html Patient presents for lab and US follow up of irregular bleeding. Patient has a history of irregular periods over the past 1 year. No changes to health or medications. Copper IUD placed in 2015 (Due for removal 2027); having intermittent hot flashes and brain fog. Also reports hypoactive sexual desire. No pain with intercourse. No inciting factor. No increased stress at home. Reports no responsive sexual desire if partner initiates. This has become distressing for her and she would like to discuss management options. On her most recent pelvic exam, a small cervical polyp was noted. Pelvic US performed to evaluate for pathology, no obvious polyp or vascularity in cervix noted. No postcoital bleeding or pain. MAO MATTHEWS MD [address], [place], [address], [facility] 06/09/2024 14:25:48 08/16/2024 text/html Patient presents for med check. She started transdermal testosterone supplementation for HSDD. She reports a great improvement in her HSDD. No hair growth or loss, increased acne, deepening voice or other side effects. She does report intermittent hot flashes, however they are tolerable. She would like to continue testosterone replacement for HSDD MAO MATTHEWS MD [address], [place], [address], [facility] 08/16/2024 15:39:32 OBGyn Episode Ob Episode Information Episode Created Date Number of Fetuses Patient Bloodtype Patient rh Status Prepregnancy Weight lbs Domestic Partner Domestic Partner Phone Father Name Socket Welder Helper Status 05/19/20 24 1 CLOSED Fetus Data First Name Last Name Admitted to NICU Weight (g) Sex Living Outcome Pediatric Complications Fetus ID Race Codes Race Delivery Type 3656.85 8704 M Full Term [id number] Vaginal Delivery Den Calculation Initial Den Date Initial Exam Date Initial Exam Provider Initial Ultrasound Date Last Menstrual Period Date Ultra Sound Weeks Gestation 0 Eighteen To Twenty Week Den Update Ultra Sound Date Fundal Height At Umbil Quickening Date Ultra Sound Latest Weeks Gestation Final Den Confirmed By Final Den Confirmed Date Final Den Date Ultra Sound Latest Days Gestation 0 0 Menstrual History Last Menstrual Date Menses Monthly On Bcp Conception Prior Menses Frequency Hcg Plus Date Menarche Onset Age Delivery Information Delivery Date Delivery Type Labor Anesthesia Weeks Gestation Incision Type Labor Labor Length Hrs Delivered By Post Complications Tubal Sterilization Discharge Date Comments 0 Discharge Information Feeding Method Contraceptive Method Maternal HG B and HCT Levels Ob Episode Information Episode Created Date Number of Fetuses Patient Bloodtype Patient rh Status Prepregnancy Weight lbs Domestic Partner Domestic Partner Phone Father Name Socket Welder Helper Status 05/19/20 24 1 CLOSED Fetus Data First Name Last Name Admitted to NICU Weight (g) Sex Living Outcome Pediatric Complications Fetus ID Race Codes Race Delivery Type 3345.24 1 F Full Term [id number] Vaginal Delivery Den Calculation Initial Den Date Initial Exam Date Initial Exam Provider Initial Ultrasound Date Last Menstrual Period Date Ultra Sound Weeks Gestation 0 Eighteen To Twenty Week Den Update Ultra Sound Date Fundal Height At Umbil Quickening Date Ultra Sound Latest Weeks Gestation Final Den Confirmed By Final Den Confirmed Date Final Den Date Ultra Sound Latest Days Gestation 0 0 Menstrual History Last Menstrual Date Menses Monthly On Bcp Conception Prior Menses Frequency Hcg Plus Date Menarche Onset Age Delivery Information Delivery Date Delivery Type Labor Anesthesia Weeks Gestation Incision Type Labor Labor Length Hrs Delivered By Post Complications Tubal Sterilization Discharge Date Comments 1 Discharge Information Feeding Method Contraceptive Method Maternal HG B and HCT Levels Ob Episode Information Episode Created Date Number of Fetuses Patient Bloodtype Patient rh Status Prepregnancy Weight lbs Domestic Partner Domestic Partner Phone Father Name Socket Welder Helper Status 05/19/20 24 1 CLOSED Fetus Data First Name Last Name Admitted to NICU Weight (g) Sex Living Outcome Pediatric Complications Fetus ID Race Codes Race Delivery Type 3430.06 2704 M Full Term [id number] Vaginal Delivery Den Calculation Initial Den Date Initial Exam Date Initial Exam Provider Initial Ultrasound Date Last Menstrual Period Date Ultra Sound Weeks Gestation 0 Eighteen To Twenty Week Den Update Ultra Sound Date Fundal Height At Umbil Quickening Date Ultra Sound Latest Weeks Gestation Final Den Confirmed By Final Den Confirmed Date Final Den Date Ultra Sound Latest Days Gestation 0 0 Menstrual History Last Menstrual Date Menses Monthly On Bcp Conception Prior Menses Frequency Hcg Plus Date Menarche Onset Age Delivery Information Delivery Date Delivery Type Labor Anesthesia Weeks Gestation Incision Type Labor Labor Length Hrs Delivered By Post Complications Tubal Sterilization Discharge Date Comments 1 Discharge Information Feeding Method Contraceptive Method Maternal HG B and HCT Levels
--- OUTSIDE RECORDS SUMMARY | 2025-02-21 09:45 | XMS_ITS | Referral Summary ---
Author Organization [facility] [address] Address [address] [place] [address] Phone Care Team Providers Care Diamond Die Driller Name Role Phone Cory MORRISON MD, Reji Garcia [facility] [phone] Maryjo Kerr MD Primary Care Provider Encounters Date Type Department Care Team Description 02/01/[address] [facility] Medical Group Vascular and Vein Surgery [facility] [address] [place] [address] Josue Colin MD 01/31/2025 2:00 PM CDT Office Visit [facility] Medical [facility] Vascular and Vein Surgery [facility] [address] [place] [address] Marisol Ayala PA Varicose veins of leg with pain, left (Primary Dx); Varicose veins of leg with pain, right 01/31/2025 1:00 PM CDT - 01/31/2025 11:59 PM CDT Hospital Encounter [facility] Cardiac Testing [address] [place] [address] Varicose veins of leg with pain, bilateral Discharge Disposition: Discharge to home or self care 01/28/2025 11:08 AM TIMBER BUYER - 01/28/2025 11:59 PM TIMBER BUYER Hospital Encounter [facility] Medical Office Building 2 Vascular [address] [facility] [address] [place] [address] Varicose veins of leg with pain, right Discharge Disposition: Discharge to home or self care 01/26/[address] [facility] Medical Group Vascular and Vein Surgery [address] [place] [address] [address] [place] [address] Tejal Shearer MA 01/26/[address] [facility] Medical Group Vascular at [address] [place] [address] Josue Colin MD 01/03/2025 11:00 AM TIMBER BUYER - 01/03/2025 11:59 PM TIMBER BUYER Hospital Encounter [facility] Medical Office Building [address] [place] [address] [address] [place] [address] Varicose veins of leg with pain, left Discharge Disposition: Discharge to home or self care 12/31/2024 Documentation [facility] Vascular and Vein Surgery [address] [place] [address] [address] [place] [address] Aleah Barroso, RN 12/31/2024 11:05 AM TIMBER BUYER - 12/31/2024 11:59 PM TIMBER BUYER Hospital Encounter [facility] Medical Office Building [address] [place] [address] [address] [place] [address] Varicose veins of leg with pain, left Discharge Disposition: Discharge to home or self care 12/28/[address] [facility] Medical [facility] Vascular and Vein Surgery [address] [place] [address] [address] [place] [address] Aleah Barroso, RN 12/28/[address] [facility] Medical Group Vascular at [address] [place] [address] Josue Colin MD from Last 3 Months Allergies No known active allergies Medications dextroamphetami ne-amphetamine XR (ADDERALL XR) 20 mg 24 hr capsule Take 1 capsule (20 mg total) by mouth every morning Active amLODIPine (NORVASC) 5 mg tablet Take 1 tablet (5 mg total) by mouth daily Active magnesium gluconate 200 mg tabletIndicatio ns:hypomagnesem ia 1 tablet (200 mg total) Active ALPRAZolam (XANAX) 0.5 mg tablet Bring both tablets to [address] day of procedure. 2 tablet Active Additional Information Patient not taking.Reported on 01/31/2025 ALPRAZolam (XANAX) 0.5 mg tablet Bring both tablets to [address] day of procedure. 2 tablet 5 Active Additional Information Patient not taking.Reported on 01/31/2025 celecoxib (CeleBREX) 200 mg capsule TAKE 1 CAPSULE BY MOUTH ONCE DAILY NEEDED WITH FOOD Active ibuprofen 200 mg tab/cap Take by mouth every 6 (six) hours as needed for pain Active Active Problems Problem Noted Date Diagnosed Date Varicose veins of leg with pain, right 5 Varicose veins of leg with pain, left 12/31/2024 Symptomatic varicose veins of both lower extremi ties 07/21/2024 Assessment & Plan (08/18/2024 10:58 AM CDT): Symptomatic varicosities bilaterally. Left is slightly worse than the right on exam. Patient is a candidate for RFA procedure with stab phlebectomies bilaterally. Start with the left 1st. Discussed procedure with the patient along with all of its risks and answered all questions to her satisfaction. She is agreeable wishes to proceed. Assessment & Plan (07/21/2024 11:15 AM CDT): Symptomatic bulging varicosities noted to both lower extremities from the thighs extending down to the calves. Encouraged to continue wearing compression stockings and follow-up in the next few weeks with a bilateral venous reflux study. Left foot pain 03/13/2018 Assessment & Plan (03/13/2018 11:54 AM CDT): Patient complains of mild pain in the left lateral foot. Recent XR displayed questionable partial fracture of the 4th MTP. Notes that symptoms have been improving over the past few weeks. Appears to be healing. Will continue to monitor at this time. Will notify us with worsened pains. Chronic pain of both shoulders 02/19/2018 Assessment & Plan (03/13/2018 11:46 AM CDT): Complains of bilateral shoulder pain. No abnormalities seen with bilateral shoulder xrays. Denies any trauma to the shoulders. Increased pain noted with bilateral external shoulder rotation. Symptoms consistent with rotator cuff tendinitis, likely supraspinatus. Referral to physical therapy was given. If no relief, may consider shoulder MRIs at next visit to further evaluate. Will follow up in 6 weeks Neck pain 02/19/2018 Tingling in extremities 02/19/2018 Assessment & Plan (03/13/2018 11:50 AM CDT): Pt complains of tingling down the bilateral shoulders into the hands. Positive phalen's and tinel's sign on exam with the bilateral hands. Symptoms consistent with possible carpal tunnel vs. Nerve impingement causing tingling in the arms. Recommended further evaluation with a neurologist for possible nerve conduction test. Arthralgia 02/18/2018 Positive XOCHILT (antinuclear antibody) 02/18/2018 Assessment & Plan (03/13/2018 11:39 AM CDT): Positive XOCHILT 1:320. + anti-thyroid antibodies. No other abnormal serologies. Mild synovitis on hand US. Bilateral shoulder xray normal. Continues to note generalized joint complaint with the majority of pain in the bilateral shoulders. No other clinical evidence of connective tissue disease. Based on current serologies, recent US, and radiographs, does not appear to be consistent with a current autoimmune disease, although an early development of an AI disease is still possible. Will continue to monitor for new symptoms. Fu 6 weeks. Fibromyalgia 02/18/2018 Assessment & Plan (03/13/2018 11:55 AM CDT): >11 tender points on exam. May be contributing to some of patient's generalized pain complaints. Patient defers treatment for fibromyalgia pains at this time. Encounter for long-term (current) use of medicat ions 02/18/2018 Social History Tobacco Use Types Packs/Day Years Used Date Smoking Tobacco: Never Alcohol Use Standard Drinks/Week Comments Yes 0 (1 standard drink = 0.6 oz pur e alcohol) Comments Unknown Sex and Gender Information Value Date Recorded Sex Assigned at Not on file Legal Sex Female 3:26 AM TIMBER BUYER Gender Identity Not on file Sexual Orientation Not on file Last Filed Vital Signs Vital Sign Reading Time Taken Comments Blood Pressure 134/80 01/31/2025 2:19 PM CDT Pulse 83 01/31/2025 2:19 PM CDT Temperature - - Respiratory Rate - - Oxygen Saturation 100% 08/18/2024 9:17 AM CDT Inhaled Oxygen Concentration - - Weight 65.8 kg (145 lb) 01/31/2025 2:19 PM CDT Height 160 cm (5' 3 ) 01/31/2025 2:19 PM CDT Body Mass Index 25.69 01/31/2025 2:19 PM CDT Plan of Treatment Not on file Procedures Procedure Name Priority Date/Time Associated Diagnosis Comments US VEIN DUPLEX LOWER EXTREMITY BILATERAL COMPLETE Schedule Routine, Read Routine (OP Routine) 01/31/2025 2:30 PM CDT Varicose veins of leg with pain, bilateral US VEIN DUPLEX LOWER EXTREMITY LEFT LIMITED Schedule Routine, Read Routine (OP Routine) 01/03/2025 1:15 PM TIMBER BUYER Varicose veins of leg with pain, left SERUM HEPATITIS C AB Routine 09/07/2014 11:47 AM CDT from Last 3 Months or Most Recently Relevant to Health Maintenance Results * US Vein Duplex Lower Extremity Bilateral Complete (01/31/2025 2:30 PM CDT) Anatomical Region Laterality Modality Vascular Bilateral Ultrasound 01/31/2025 1:29 PM CDT Narrative 01/31/2025 2:34 PM CDT Lower Extremity Venous Report Patient Name: LULU HAIR E : 1975 (49y 2m) Gender: F Study Date: 01/31/2025 01:29:25 PM Forklift Picker: Isabel Cameron RVS Order Provider: JOSUE COLIN Quality: Adequate Ref Provider: JOSUE COLIN PROCEDURES: Vascular Report: A non-invasive vascular imaging study of the bilateral lower extremity veins was performed using B-mode ultrasound, color flow, and spectral Doppler. INDICATIONS: I83.813 Varicose veins of bilateral lower extremities with pain. HISTORY: IR Endovenous RF Ablation/Phlebectomy Left (12-31-2024) Right (01-28-2025). COMPARISONS: Ultrasound of the left lower extremity with ablation of GSV and phlebectomy. FINDINGS: Right: Negative for deep vein thrombosis in the right Common Femoral Vein. The superficial thrombus is 3.32 cm from the right saphenofemoral junction. The right GSV is completely noncompressible until just below the knee. Unable to visualize portions of the right GSV at prox calf due to bandages. Left: Negative for deep vein thrombosis in the left Common Femoral Vein. The superficial thrombus is 2.08 cm from the left saphenofemoral junction. GSV is noncompressible until mid thigh. The GSV branchs out around mid thigh and become superficial and leads to varicose veins that are noncompressible. CONCLUSIONS: 1. There is no evidence of deep vein thrombosis in the lower extremities bilaterally. 2. Successful ablation of bilateral great saphenous veins. ATTESTATION: I have reviewed and interpreted the pertinent images and measurements of this study. I attest to the conclusions in the final report that is provided above. Electronically Signed By: Josue Colin MD 01/31/2025 2:33:26 PM CDT Procedure Note Josue Colin MD - 01/31/2025 Lower Extremity Venous Report Patient Name: LULU HAIR E : 1975 (49y 2m) Gender: F Study Date: 01/31/2025 01:29:25 PM Forklift Picker: Isabel Cameron [facility] Order Provider: JOSUE COLIN Quality: Adequate Ref Provider: JOSUE COLIN PROCEDURES: Vascular Report: A non-invasive vascular imaging study of the bilaterallower extremity veins was performed using B-mode ultrasound, color flow, and spectralDoppler. INDICATIONS: I83.813 Varicose veins of bilateral lower extremities with pain. HISTORY: IR Endovenous RF Ablation/Phlebectomy Left (12-31-2024) Right(01-28-2025). COMPARISONS: Ultrasound of the left lower extremity with ablation of GSV andphlebectomy. FINDINGS: Right: Negative for deep vein thrombosis in the right Common Femoral Vein.The superficial thrombus is 3.32 cm from the right saphenofemoral junction.The right GSV is completely noncompressible until just below the knee. Unable to visualizeportions of the right GSV at prox calf due to bandages. Left: Negative for deep vein thrombosis in the left Common Femoral Vein.The superficial thrombus is 2.08 cm from the left saphenofemoral junction. GSV isnoncompressible until mid thigh. The GSV branchs out around mid thigh and become superficial andleads to varicose veins that are noncompressible. CONCLUSIONS: 1. There is no evidence of deep vein thrombosis in the lower extremitiesbilaterally. 2. Successful ablation of bilateral great saphenous veins. ATTESTATION: I have reviewed and interpreted the pertinent images and measurements ofthis study. I attest to the conclusions in the final report that is provided above. Electronically Signed By: Josue Colin MD 01/31/2025 2:33:26 PM CDT us Josue Colin MD IMG US PROCEDURES Final Result * US VEIN DUPLEX LOWER EXTREMITY LEFT LIMITED, UNILATERAL (01/03/2025 1:15 PM TIMBER BUYER) Anatomical Region Laterality Modality Vascular Left Ultrasound 01/03/2025 11:2 5 AM TIMBER BUYER Narrative 01/04/2025 11:07 AM TIMBER BUYER Lower Extremity Venous Report Patient Name: LULU HAIR E : 1975 (49y 1m) Gender: F Study Date: 01/03/2025 11:25:16 AM Forklift Picker: Whitney Montalvo Provider: JOSUE COLIN Quality: Adequate Ref Provider: JOSUE COLIN PROCEDURES: Vascular Report: A non-invasive vascular imaging study of the left lower extremity veins was performed using B-mode ultrasound, color flow, and spectral Doppler. INDICATIONS: I83.812 Varicose veins of left lower extremity with pain. HISTORY: S/P RFA LT GSV (14CM) 12/31/24. FINDINGS: Left: Negative for deep vein thrombosis in the left lower extremity. Normal compressibility and color filling, spontaneous and phasic flow, and response to distal augmentation is demonstrated in the left common femoral vein. The left great saphenous vein has been ablated from the SFJ to distal thigh. CONCLUSIONS: 1. Successful ablation of the left great saphenous vein no evidence of deep vein thrombosis. ATTESTATION: I have reviewed and interpreted the pertinent images and measurements of this study. I attest to the conclusions in the final report that is provided above. Electronically Signed By: Josue Colin MD 01/04/2025 10:56:22 AM TIMBER BUYER Procedure Note Josue Colin MD - 01/04/2025 Lower Extremity Venous Report Patient Name: LULU HAIR E : 1975 (49y 1m) Gender: F Study Date: 01/03/2025 11:25:16 AM Forklift Picker: Whitney Montalvo Provider: JOSUE COLIN Quality: Adequate Ref Provider: JOSUE COLIN PROCEDURES: Vascular Report: A non-invasive vascular imaging study of the left lowerextremity veins was performed using B-mode ultrasound, color flow, and spectral Doppler. INDICATIONS: I83.812 Varicose veins of left lower extremity with pain. HISTORY: S/P RFA LT GSV (14CM) 12/31/24. FINDINGS: Left: Negative for deep vein thrombosis in the left lower extremity.Normal compressibility and color filling, spontaneous and phasic flow, andresponse to distal augmentation is demonstrated in the left common femoral vein. The leftgreat saphenous vein has been ablated from the SFJ to distal thigh. CONCLUSIONS: 1. Successful ablation of the left great saphenous vein no evidence ofdeep vein thrombosis. ATTESTATION: I have reviewed and interpreted the pertinent images and measurements ofthis study. I attest to the conclusions in the final report that is provided above. Electronically Signed By: Josue Colin MD 01/04/2025 10:56:22 AM TIMBER BUYER us Josue Colin MD IM US PROCEDURES Final Result * Serum Hepatitis C ab (09/07/2014 11:47 AM CDT) HCV ab Non-Reacti ve Non-Reacti ve HISTORICAL RESULTS Serum 09/07/2014 11:4 7 AM CDT us Asad Martinez MD LAB BLOOD ORDERABLES Final Resul t HISTORICAL RESULTS from Last 3 Months or Most Recently Relevant to Health Maintenance Insurance [facility] Care Teams Diamond Die Driller Relationship Specialty Start Date End Date Maryjo Kerr MD [address] [facility] [place] [address] [place] [address] PCP - General Family Practice 01/31/25 Reji Ray III, MD [address] [address] Consulting Physician Rheumatology 02/18/18
--- OUTSIDE RECORDS SUMMARY | 2025-02-21 09:45 | XMS_ITS | Data Portability ---
Author Organization [facility], Main Office Address [address] [place] [address] [address] [place] [address] Assessment No assessment recorded. Plan of Treatment Reminders Order Date Submit Date Provider Last Modified By Organization Details Last Modified Time Details Appointments None record ed. Lab None record ed. Referral None record ed. Procedures None record ed. Surgeries None record ed. Imaging None record ed. Medication Orders None record ed. Patient TargetsNo targets recorded. Patient Instructions Encounter Date Encounter Id Patient Instructions Last Modified By Organization Details Last Modified Time 03/29/2019 [id number] [email or web address] Not available 03/29 20:25:38 She will follow up with me only as needed. On today's visit I spent a total of {{30 35 40 45 50* 55 60}} minutes [id number] with the patient and over 50% of this time was spent discussing treatment options, risks/benefits of each option and alternatives and answering her questions. [email or web address] Not available 03/29/2019 20:26:01 Reason for Referral None Reported. Problems Name Problem SNOMED Code Status Onset Date Resolution Date Notes Provider Name and Address Organization Details Recorded Time Residual hemorrhoidal skin tags 29611864 Active 2018 Karlene Joe MD [address] [facility],[address], [place], [address], [facility] 9 20:10:39 Pile easily reducible 581882549 Active 201803/29/19: No tx - removed tag Karlene Joe MD [address] [facility],[address], [place], [address], [facility] [place] 9 20:26:15 Loose stool 379880406 Active 2018 [place] [address] [place] [address],[address], [place], [address], [facility] 9 20:15:28 Multiple joint pain 79576322 Active 2018 Karlene Joe MD [address] [place] [address],[address], [place], [address], [facility] 9 20:18:34 Problem Notes None recorded. Procedures Surgical History Date Name Laterality Status Provider Name and Address Organization Details Recorded Time 03/29/20 19 Anoscopy completed Karlene Joe MD [address] [place] [address],[address], [place], [place], [address] [place], [place] [address]oid [facility] 03/29/2019 20:10:25 06/12/20 18 Date of Last [facility] 09/22/2019 10:42:20 11/24/19 16 Cholecystectomy completed Karlene Joe MD [address] [place] [address],[address], [place], [place], [address] [place], [place] [address] [facility] 03/29/2019 20:02:35 Hernia Repair [facility] 03/29/2019 11:08:51 Imaging Results None recorded. Procedure Notes None recorded. Medical Equipment None Reported. Allergies No known drug allergies Medications Name Sig Start Date Stop Date Status Note LastModified by Organization Details LastModified Time fluoxetine 40 mg capsule active Not Available Not Available N ot Available phentermine 37.5 mg tablet Take 1 tablet every day by oral route. active Not Available Not Available No t Available diclofenac potassium 50 mg tablet 03/29 completed Not Available Not Available Not Available hydroxyzine HCl 25 mg tablet 03/29 completed Not Available Not Available Not Available fluoxetine 20 mg capsule active Not Available Not Available N ot Available Vitals Date Recorded Body height Respiratory rate Body mass index (BMI) Body weight Body temperature Heart rate Systolic blood pressure Diastolic blood pressure Provider Name and Address Organization Details Last Updated DateTime 9 160.02 cm 12 /min 34.9 kg/m2 35772.7 g 98.4 [degF] 92 /min 146 mm[Hg] 90 mm[Hg] Aleah Potts [facility] 9 11:17:20 Social History Question Answer Notes LastModified by Organizat ion Details LastModified Time Tobacco Smoking Status Never Smoker Aleah ann [facility] 03/29/2019 11:06:16 How Much Tobacco Do You Chew? None Information not available 03/29/2019 What Is Your Occupation? [employer] [email or web address] Information not available 03/29/2019 Alcohol Use Yes Information n ot available 03/29/2019 Alcohol Amount Occasional Information not available 03/29/2019 Caffeine Use Yes Information not available 03/29/2019 Caffeine Type Coffee Information not available 03/29/2019 Caffeine Amount 2-4 Cups Information not available 03/29/2019 Illicit Drug Use No Information not available 03/29/2019 What Was The Date Of Your Most Recent Tobacco Screening? 03/29/2019 Information not available 06/17/2019 Sex: Female Functional Status None recorded. Mental Status None recorded. Family History Relationship Description Onset Age of this Age Resolved Age Notes LastModified by Organization Details LastModified Time Father Malignant neoplasm of skin Not available 2018 11:05:44 Father Heart disease Not available 2018 11:06:00 Maternal Uncle Diabetes mellitus Not available 2018 11:06:08 Medical History Condition Response Coronary Artery Disease N Other N Atrial Fibrillation N Kidney Stones N Hyperthyroidism N Hernia N Depression Y COPD N Glaucoma N Hypothyroidism N Accidental Bowel Leakage N Headaches/Migraines Y Deep Vein Thrombosis N Anxiety Disorder Y Cardiac Dysrhythmia N MRSA/VRE Exposure N Genital Herpes N Diverticulosis N Cancer N Stroke N Head Trauma N Crohn's Disease N Genital Warts N Liver Disease/Hepatitis N HIV/AIDS N High Cholesterol N Irritable Bowel Syndrome N Autoimmune Disease Y Kidney Disease N Anemia N Arthritis/Gout Y Celiac Disease N Anal/Rectal Trauma/Injury N Diabetes N Cataracts N Bleeding Disorder N Seizures/Epilepsy N Congestive Heart Failure (CHF) N Diverticulitis N Heart Attack N Asthma N Reflux/GERD N Ulcerative Colitis N Sleep Apnea N Mitral Valve Prolapse N Aneurysm N Heart Disease N Pulmonary Embolism N Hypertension N Colon/Rectal Polyps N Gynecological History Statement/Question Response Number of Pregnancies? 3 Tear or Laceration During Delivery? Y Date of Last Mammogram Could You Be or Are You Currently Pregna nt? N Number of C-Sections? 0 Number of Vaginal Deliveries? 3 Accidental Bowel Leakage Post Delivery? N Episiotomy During Delivery? N Date of Last Pap Smear 06/12/2018 Obstetrics History GPAL:G 0 P 0 0 0 0 Immunizations Vaccine Type Date Status Note Provider Nam e and Address Organization Details Recorded Time Tdap 07/11/2011 completed Beverly Deutsch [facility] 09/22/2019 10:41:55 Past Encounters Encounter ID Performer Location Encounter Start Date Encounter Closed Date Diagnosis/Indication Diagnosis SNOMED-CT Code Diagnosis ICD10 Code Diagnosis Note [id number] Karlene Joe MD Main Office [address] [facility] [address] [place] [address] 03/29/2019 10:57:43 03/29/2019 12:21:23 Residual hemorrhoidal skin tags 34319424 K64.4 The pedunculat ed tag was easily removed today and was discarded. I discussed hemorrhoid s in general with her as well as the treatment options. She now knows that the only way to directly treat external hemorrhoid s/tags is with a surgical procedure. Her broad based, fleshy circumfere ntial tags are not bothersome and trying to remove them would be extremely painful. She should not have this done (they really do not bother her). Pile easily reducible 27 [id number] K64.1 Stage 1 - 2 internal hemorrhoid s: I did discussed hemorrhoid s in general as well as the treatment options. She now understand s that any non-surgic al procedure (infrared coagulatio n or banding) would be done on her internal hemorrhoid s. Her baseline symptoms are not bad enough or persistent enough to warrant any procedures at this time. She will monitor her symptoms and if they worsen/bec ome more persistent , she will follow up and we will consider doing a series of IRC treatments (I would need to complete full informed consent before treating her). Loose stool 529687349 R1 9.5 I discussed with her that she needs to be eating a high fiber diet and drinking plenty of water on a consistent basis. She should also try to completely eliminate gluten from her diet for a couple of months and see if this does help her BM's. If she does improve but not completely , she could even try a low FODMAP diet (She can find informlokesho n on this online). The low FODMAP diet is a very restrictiv e diet and is hard to follow, but it might make her feel better. She needs to limit simple sugar and concentrat e on complex carbohydra kerry. Multiple joint pain 3567 8005 M25.50 I discussed with her that it looks like she has had a very thorough work-up and, while it is frustratin g to not get a specific diagnosis, it is better that getting the diagnosis of a true auto-immun e disease that could cause joint and organ destructio n/dysfunct ion. I encouraged her to try the gluten free diet - even if it does not help her pain, it is a healthier diet overall and might help her loose BM's. She needs to be getting more sleep (at least 8 hours nightly on a consistent basis) and exercising regularly. We discussed there is no quick fix for her symptoms. I advised she should try to decrease her stress level (and wished her luck on that because she is in a time of her life that she has a lot of responsibi lities and it is hard to not stress over those). Health Concerns Section Related Observation LastModified by Organization Detai ls LastModified Time None Recorded Concern Status LastModified by Organization Details LastModified Time None Recorded Advance Directives Directive None Recorded Payers Encounter Date Sequence Insurance Name Policy Number Policy George Covered Member ID George Member ID Guarantor Name 03/29/2019 1 [facility] [id number] Brandee Hair [id number] Brandee Hair Notes Date Note Type Note Provider Name and Address Organization Details Recorded Time 03/29/2019 text/html This is an extre jason pleasant 43 year old woman who has had symptoms from her hemorrhoids on and off for 19 years starting with her 1st and delivery. She states they were horrible for a long time after that delivery . She had issues with her next 2 pregnancies and deliveries as well. She then did well, having only occasional (about every 1 - 2 month) flares each lasting about 2 - 3 days. These flares have persisted although have not worsened. She gets swelling, irritation and a scant amount of bleeding. She uses some OTC medications and her flare resolves. Last week she noticed something coming out . This persists. She presents today for an evaluation and to discuss her treatment options. Bleeding: She occasionally sees a scant amount of bright red blood on the wipe with BM's. This only occurs when she has a flare at baseline. She has had no bleeding over the last week. Pain: None Itching: She does get some external irritation and itching with her baseline flares. She has had none over the last 1 week. Discharge: It is always hard to get clean after BM's because of swelling. This is even if she does not have a flare. She occasionally has difficulty staying clean - she has to re-wipe shortly after a BM. She has never had drainage heavy enough that she has to wear a pad. Prolapse: Not that she feels. External swelling: She always has some external swelling. This is worse when she is flared. She has the tissue that she describes as a little white ball coming out over the last 1 week. Discomfort: She has the occasional minor flare as above. Previous Hemorrhoid Treatment: She has used OTC hemorrhoid creams. She has never had any procedures on her hemorrhoids. Previous Lower GI Endoscopy: She has never had a colonoscopy. Bowel Habits: Since her cholecystectomy she has had more loose BM's and she feels like foods bother her a lot more. She does try to eat a high fiber diet and drink plenty of water and feels she does a good job at this. Over the last 5 years she has had significant fatigue as well as joint and muscle pain. She had extensive lab work-up as well as x-rays. She was found to have a positive XOCHILT but all other rheumatologic studies were negative. She has seen a machine cutter and was diagnosed with fibromyalgia. She states I just don't accept this diagnosis . 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 She does not routinely get enough sleep and does not exercise routinely. She does not like to take medications so has not taken anything for the pain. She is on fluoxetine for depression and phentermine to help her lose weight. She has never tried to eliminate gluten or lactose from her diet to help with the loose BM's. Karlene Joe MD [address] [facility],[address], [place], [address], [facility] 03/29/2019 20:28:57 OBGyn Episode No OBEpisode recorded.
--- OUTSIDE RECORDS SUMMARY | 2025-02-21 09:45 | XMS_ITS | Clinical Summary ---
Author Organization [facility] Address [address] [facility] [place] [address] Care Team Providers Care Appraisal Coordinator Name Role Phone Cachorro Abraham MD Unavailable [phone] Maryjo Kerr MD Primary Care Provider Source Comments [facility],non-owned Affiliates and Associated Physician Practices is amultiple site organization consisting of ambulatory clinics and hospital sitesin [place], [place], [place] and [place]. This disclosure is being madepursuant to the Care Everywhere program and may not contain all information available regarding this patient. Last updated 18.[facility] Allergies No known active allergies Medications * Be aware that medications may not be up to date on this document. Alwaysverify current medications with the patient. Medication Sig Dispensed Refills Start Date End Date Status PARAGARD INTRAUTERINE COPPER IUD by Intrauterine route as directed Inserted 08/15/2016. Lot: [id number] Exp date: 02/22/2022. [facility]: [id number] Active amLODIPine (NORVASC) 5 MG tablet Take 1 (one) tablet by mouth once daily 0 Active drospirenone-ethi nyl estradiol (JEOVANNY 28) 3-0.03 MG tablet Take 1 (one) tablet by mouth once daily 2 packet 1 Active Additional Information Patient not taking.Reported on 09/30/2024 phentermine (Adipex-P) 37.5 MG tablet Take 1 (one) tablet by mouth once daily 30 tablet 2 2 Active Additional Information Patient not taking.Informant: Other, Reported on 09/30/2024 oxybutynin CR 24hr (Ditropan-XL) 10 MG tablet Take 1 (one) tablet by mouth once daily 90 tablet 4 2 Active Additional Information Patient not taking.Reported on 09/30/2024 Magnesium Oxide -Mg Supplement 400 (240 Mg) MG Take 1 (one) tablet by mouth once daily 4 Active amphetamine-dextr oamphetamine (Adderall) 20 MG tablet Take 1 (one) tablet by mouth every morning Active MAGNESIUM PO 200 mg Active testosterone 2 mg/gm cream 2 mg/gm CREA compound Apply to affected area once daily Active oxyCODONE-acetami nophen (Percocet) 5-325 MG tabletIndications :Biceps tendinitis of right shoulder Take 1 (one) tablet to 2 (two) tablets by mouth every 4 hours as needed for Pain 42 tablet 4 Active Additional Information Patient not taking.Reported on 09/30/2024 ciclopirox (Penlac) 8 % solution APPLY 1 APPLICATION TOPICALLY EVERY DAY AT BEDTIME 4 Active traMADol (Ultram) 50 MG tablet Take 1 (one) tablet by mouth 2 times daily as needed For pain. 4 Active tretinoin (Retin-A) 0.1 % cream APPLY ONE APPLICATION TOPICALLY EVERY DAY AT BEDTIME 4 Active celecoxib (CeleBREX) 200 MG capsule TAKE 1 CAPSULE BY MOUTH ONCE DAILY NEEDED WITH FOOD 30 capsule 5 Active celecoxib (CeleBREX) 200 MG capsule TAKE 1 CAPSULE BY MOUTH ONCE DAILY NEEDED WITH FOOD 30 capsule 5 02/15/20 25 Discontinued Hospital, Clinic, or Other Facility Administered Medication Ordered Dose Route Frequency Start Date End Date Status lidocaine (Xylocaine) 1 % injectionIndications:Primar y osteoarthritis of left knee IX ONCE 02/02/2025 02/02/2025 Ended triamcinolone acetonide (Kenalog-40) injection 80 mgIndications:Primary osteoarthritis of left knee 80 mg IX ONCE 02/02/2025 02/03/20 25 Ended Active Problems Problem Noted Date Diagnosed Date Symptomatic varicose veins of both lower extremi ties 07/21/2024 Well woman exam with routine gynecological exam 08/16/2020 Overview (10/31/2022): Complaints: weight gain, OAB which is well controlled with Ditropan Contraception: Paragard Pap Results 2020: NILM 2018: NILM Mammogram Results N/a Assessment & Plan (10/31/2022 5:56 PM PHYSICIAN NEONATOLOGY): Reviewed cervical cancer pathophysiology as well as screening and prevention guidelines Pap collected Reviewed breast cancer screening guidelines and prevention recommendations IUD strings visualized Ditropan refilled I reviewed with the patient the physiology of weight homeostasis, and the complicated, multi-factor systems that help regulate weight and metabolism We reviewed appropriate lifestyle modifications, including diet and exercise, and we discussed their importance not as temporary fixes but as true lifestyle modifications that must be sustained over the long-term to see meaningful, permanent weight loss We reviewed appropriate goals for weight loss, with data suggesting a 10% weight loss as having significant, disease-modifying effects on long-term morbidity and mortality from obesity-associated conditions We reviewed the role of appetite suppressants such as phentermine and newer medications such GLP-1 agonists such as Wegovy. We reviewed the efficacy data with each, as well as cost and ease of use associated with each The patient wants to proceed with Diet and lifestyle modifications in addition to phentermine. We reviewed the risks associated with medications like phentermine, and the need for surveillance of blood pressure, ongoing weight loss, and the high likelihood of regaining all weight lost after discontinuation Rx sent to the pharmacy, dosing information reviewed with the patient Patient encouraged to continue following a healthy diet and to aim for 150 minutes of physical activity/exercise weekly Assessment & Plan (09/18/2021 4:23 PM CDT): Reviewed cervical cancer pathophysiology as well as screening and prevention guidelines Pap collected Reviewed breast cancer screening guidelines and prevention recommendations Will trial increased dose of ditropan for OAB symptoms Will trial short duration of OCP for management and regulation of bleeding, if no improvement, recommend U/S to assess IUD position and possible sampling for ureaplasma Assessment & Plan (08/16/2020 11:17 PM CDT): Reviewed cervical cancer pathophysiology as well as screening and prevention guidelines Pap collected Reviewed breast cancer screening guidelines and prevention recommendations Urinary incontinence, mixed 08/16/2020 Overview (08/16/2020): Location: bladder Quality: Leakage with laughing/coughing/sneezing as well as urger/OAB Duration: 12+ monts Severity: Mod to severe Modifying: none Timing: daily Associated signs/symptoms: none Assessment & Plan (08/16/2020 11:19 PM CDT): Reviewed pathophysiology of urinary incontinence, including a discussion of the 3 subtypes Discussed management options for both the JOSEPH and OAB Will initiate an anticholinergic for her OAB symptoms, will refer to pelvic floor PT for JOSEPH Obesity 08/16/2020 Overview (08/16/2020): Patient previously took phentermine with good success, wants to restart Assessment & Plan (08/16/2020 11:20 PM CDT): Reviewed the importance of diet and lifestyle modifications as well as limitations of the medicine Rx sent to the pharmacy Easily reducible hemorrhoids 03/29/2019 Overview (09/30/2024): 03/29/19: No tx - removed tag Loose stools 03/29/2019 Residual hemorrhoidal skin tags 03/29/2019 Left foot pain 03/13/2018 Chronic pain of both shoulders 02/19/2018 Tingling in extremities 02/19/2018 Encounter for long-term (current) use of medicat ions 02/18/2018 Fibromyalgia 02/18/2018 Back pain 12/01/2014 Thrombocytosis 11/08/2014 Arthralgia 11/08/2014 Positive XOCHILT (antinuclear antibody) 11/08/2014 Fatigue 11/08/2014 Resolved Problems Problem Noted Date Diagnosed Date Resolved Date Encounter for supervision of other normal 01/03/2011 08/21/2011 Overview (10/01/2015): Advanced maternal age in 01/03/2011 03/27/2011 Encounters Date Type Department Care Team Description 02/12/2025 Refill [facility] - Orthopedic Surgery [address] [place] [id number] Seth Singh APRN-CNP Refill Request 02/02/2025 11:30 AM CDT - 02/02/2025 11:59 PM CDT Hospital Encounter [facility] Physician [facility] - Orthopedics [address] [place] [phone] Seth Singh APRN-CNP Discharge Disposition: Home or Self Care 02/02/2025 11:30 AM CDT Office Visit [facility]ician [facility] - Orthopedic Surgery [address] [place] [phone] Seth Singh APRN-CNP Primary osteoarthritis of left knee (Primary Dx) 02/02/2025 Travel 01/18/2025 Refill [facility] - Orthopedic Surgery [address] [place] [address] Seth Singh APRN-CNP Refill Request 12/24/2024 1:30 PM PHYSICIAN NEONATOLOGY Office Visit [facility] Physician [facility] - Orthopedic Surgery [address] [place] [phone] Seth Singh APRN-CNP Primary osteoarthritis of left knee (Primary Dx) 12/24/2024 Travel 12/14/2024 2:40 PM PHYSICIAN NEONATOLOGY Office Visit [facility] - Orthopedic Surgery [address] [place] [phone] Axel Santana MD S/P arthroscopy of right shoulder (Primary Dx) 12/14/2024 Travel from Last 3 Months Immunizations Name Administration Dates Next Due TDAP (7yrs+) 07/11/2011 Family History Medical History Relation Name Comments Heart Failure Father Stroke Father Relation Name Status Comments Father Mother Alive Social History Tobacco Use Types Packs/Day Years Used Date Smoking Tobacco: Never Smokeless Tobacco: Never Alcohol Use Standard Drinks/Week Comments Yes 0 (1 standard drink = 0.6 oz pur e alcohol) occasional AUDIT-C Answer Date Recorded Q1: How often do you have a drink containing alc ohol? 2-4 times a month 08/23/2024 Q2: How many drinks containi ng alcohol do you have on a typical day when you are drinking? 1 or 2 08/23/2024 Q3: How often do you have si x or more drinks on one occasion? Less than monthly 08/23/2024 PHQ-2 Answer Date Recorded Patient Health Questionnaire-2 Score 0 02/01/2025 Sex and Gender Information Value Date Recorded Sex Assigned at Not on file Gender Identity Not on file Sexual Orientation Not on file Last Filed Vital Signs Vital Sign Reading Time Taken Comments Blood Pressure 121/79 08/23/2024 11:46 AM CDT Pulse 61 08/23/2024 11:46 AM CDT Temperature 36 C (96.8 F) 08/23/2024 10:09 AM CDT Respiratory Rate 16 08/23/2024 11:46 AM CDT Oxygen Saturation 97% 08/23/2024 11:46 AM CDT Inhaled Oxygen Concentration - - Weight 65.8 kg (145 lb) 12/24/2024 1:31 PM PHYSICIAN NEONATOLOGY Height 160 cm (5' 3 ) 12/24/2024 1:31 PM PHYSICIAN NEONATOLOGY Body Mass Index 25.69 12/24/2024 1:31 PM PHYSICIAN NEONATOLOGY Plan of Treatment Health Maintenance Due Date Last Done Comments COLOGUARD (AGES 45-75) - COLON CA SCREENING 1977 COLON MONITORING 1977 COLONOSCOPY - COLON CA SCREENING 1977 CT COLONOGRAPHY - COLON CA SCREENING 1977 Colorectal Cancer Screening 1977 FIT - COLON CA SCREENING 1977 FLEX SIG - COLON CA SCREENING 1977 LIPID TESTING 1977 MAMMOGRAM 1977 HIV SCREENING 1992 HEPATITIS C SCREENING 11/18/1995 HEPATITIS B VACCINE (1 of 3 - 19+ 3-dose series) 1996 DTAP/TDAP/TD VACCINES (2 - Td or Tdap) 07/11/2021 07/11/2011 COVID-19 VACCINE ( - season) 2024 INFLUENZA VACCINE (#1) 2024 SCREENING FOR DIABETES 12/14/2024 7, 11/08/2014, 07/10/2011 PAP with HPV 10/31/2027 10/31/2022, 10/2 11/2020, 06/12/2018, Additional history exists ZOSTER VACCINE (1 of 2) 2027 DEPRESSION SCREENING Completed 02/02/2025, 02/26/20 24 HIB VACCINE Aged Out No longer eligi ble based on patient's age to complete this topic HPV VACCINE Aged Out No longer eligi ble based on patient's age to complete this topic MENINGOCOCCAL (Group B) VACCINE SHARED DECISION-MAKING Aged Out No longer eligible based on patient's age to complete this topic MENINGOCOCCAL GROUPS A/C/Y/W VACCINE Aged Out No longer eligible based on patient's age to complete this topic PNEUMOCOCCAL VACCINE Aged Out No long er eligible based on patient's age to complete this topic Medical Devices Implanted Type Area Coin Dealer Device Identifier Shelf Expiration Date Model / Serial / Lot [employer] Sut Jggrknt Mxbrd 2.9mm 2 Ld Sft Implanted:Qty : 1 on 08/23/2024 by Axel Santana MD at [facility] Right: Shoulder [employer] [id number] 02/27/2029 [id number] / / [id number] Procedures Procedure Name Priority Date/Time Associated Diagnosis Comments CO DRAIN/INJECT LARGE JOINT/BURSA Routine 02/02/2025 2:29 PM CDT Primary osteoarthritis of left knee XR KNEE LEFT 4VW OR MORE Routine 02/02/2025 12:48 PM CDT Primary osteoarthritis of left knee PAP IG LB RFLX HPV APTIMA ASCU Routine 10/31/2022 4:21 PM PHYSICIAN NEONATOLOGY Well woman exam with routine gynecological exam HEMOGLOBIN A1C Routine 02/05/2017 9:22 AM CDT Fatigue due to exposure, initial encounter from Last 3 Months or Most Recently Relevant to Health Maintenance Results * CO DRAIN/INJECT LARGE JOINT/BURSA (02/02/2025 2:29 PM CDT) Narrative Gulshan Bolanos, DO - 02/02/2025 2:29 PM CDT Seth Singh, LABEL FOLDER-ORCHESTRA CONDUCTOR 02/03/2025 4:54 PM After risks, benefits, alternatives were discussed, the patient elected to proceed forward with corticosteroid injection. The appropriate site and side was confirmed with the patient. The patient was positioned in the appropriate position. The left knee injection site was located and marked at the peripatellar portal. The surrounding skin was prepped with betadine and alcohol. Ethyl Chloride was used to anesthetize the skin. A syringe with 3mL's of 1% Lidocaine was used to inject the subcutaneous tissue down into the joint space. Upon entering the joint space 2 mL's of synovial fluid was aspirated. A second syringe with a combination of 5mL's of 1% Lidocaine + 2mL's of 40mg Kenalog was injected into the joint space. A sterile bandage was placed. The patient tolerated the procedure well without complications. Post-injection instructions were given to the patient. Seth Singh APRN-ORCHESTRA CONDUCTOR PROCEDURE/MINOR SURGICAL ORDERABLES * XR Knee Left 4Vw or More (02/02/2025 12:48 PM CDT) Anatomical Region Laterality Modality Lower Extremity Radiographic Serenity ging 02/02/2025 12:4 9 PM CDT Narrative 02/02/2025 12:50 PM CDT PROCEDURE: XR KNEE LEFT 4VW OR MORE DATE/TIME OF EXAM: 02/02/2025 12:48 PM CLINICAL INFORMATION: None relevant/not provided if blank. Indication: M17.12: Unilateral primary osteoarthritis, left knee XR KNEE LEFT 4VW OR MORE, AP, LATERAL VIEWS. HISTORY: M17.12: Unilateral primary osteoarthritis, left knee COMPARISON: 09/07/2014 FINDINGS/IMPRESSION: 1. Weight-bearing images were obtained. No acute fracture, dislocation, suspicious intrinsic bony lesions, or suspicious soft tissue abnormalities are identified. Alignment is anatomic. 2. There is minimal stable tricompartmental osteoarthritis with joint space narrowing and osteophytosis, unchanged. 3. There is no suprapatellar joint effusion, patella betty or patellar enthesopathy on lateral view. 4. No significant interval changes. > Interpreting Provider: Pedro Treadwell MD on 02/02/2025 12:50 PM Procedure Note Pedro Treadwell MD - 02/02/2025 PROCEDURE: XR KNEE LEFT 4VW OR MORE DATE/TIME OF EXAM: 02/02/2025 12:48 PM CLINICAL INFORMATION: None relevant/not provided if blank. Indication: M17.12: Unilateral primary osteoarthritis, left knee XR KNEE LEFT 4VW OR MORE, AP, LATERAL VIEWS. HISTORY: M17.12: Unilateral primary osteoarthritis, left knee COMPARISON: 09/07/2014 FINDINGS/IMPRESSION: 1. Weight-bearing images were obtained. No acute fracture, dislocation, suspicious intrinsic bony lesions, or suspicious soft tissueabnormalities are identified. Alignment is anatomic. 2. There is minimal stable tricompartmental osteoarthritis with jointspace narrowing and osteophytosis, unchanged. 3. There is no suprapatellar joint effusion, patella betty or patellar enthesopathy on lateral view. 4. No significant interval changes. > Interpreting Provider: Pedro Treadwell MD on 02/02/2025 12:50 PM Seth Singh LABEL FOLDER-ORCHESTRA CONDUCTOR DIAGNOSTIC IMAGI NG ORDERABLES * PAP IG LB RFLX HPV APTIMA ASCU (10/31/2022 4:21 PM PHYSICIAN NEONATOLOGY) Diagnosis [facility] INSURANCE BILL Comment:NEGATIVE FOR INTRAEP ITHELIAL LESION OR MALIGNANCY. Specimen Adequacy [facility] INSURANCE BILL Comment: Satisfactory for evaluation. Endocervical and/or squamous metaplastic cells (endocervical component) are present. Clinician Provided ICD10 [facility] INSURANCE BILL Comment:Z01.419 Performed by [facility] INSURANCE BILL Comment:Felicita Williamson, Cytot echnologist (ASCP) Comment . [facility] INSURANCE BILL Note [facility] INSURANCE BILL Comment: The Pap smear is a screening test designed to aid in the detection of premalignant and malignant conditions of the uterine cervix. It is not a diagnostic procedure and should not be used as the sole means of detecting cervical cancer. Both false-positive and false-negative reports do occur. . [facility] CPT Code Automation [facility] INSURANCE BILL Comment: This liquid based ThinPrep(R) pap test was screened with the use of an image guided system. Note [facility] INSURANCE BILL Comment: The HPV DNA reflex criteria were not met with this specimen result therefore, no HPV testing was performed. . Pathology/Cytolog y PART OF UTERINE CERVIX / Unknown 10/31/2022 4:21 PM PHYSICIAN NEONATOLOGY 11/01/2022 Narrative [facility] INSURANCE BILL - 11/08/2022 1:08 PM PHYSICIAN NEONATOLOGY No. of containers..01 ThinPrep Vial Resulting Agency Comment Lab Testing performed at: [address] [place] [phone] Cachorro Abraham MD LAB - PATHOLOGY/CYTO LOGY ORDERABLES [facility] INSURANCE BILL [address] [place] [address] * (ABNORMAL) HEMOGLOBIN A1C (HgbA1C) (02/05/2017 9:22 AM CDT) Hemoglobin A1c 5.7(H) 4.8 - 5.6 % [facility] INSURANCE BILL Comment: . Pre-diabetes: 5.7 - 6.4 Diabetes: >6.4 Glycemic control for adults with diabetes: <7.0 Whole Blood BLOOD SPECIMEN WITH EDTA / Unknown 02/05/2017 9:22 AM CDT 02/05/2017 Narrative Resulting Agency Comment [facility] [address] [facility] [phone] Zeyad Cm Jr., MD LAB - BRICK CLEANER RY ORDERABLES [facility] INSURANCE BILL [address] [place] [address] from Last 3 Months or Most Recently Relevant to Health Maintenance Advance Directives * FULL RESUSCITATION (Latest Code Status on File) Date Activated Date Inactivated Comments 07/10/2011 1:17 PM 07/14/2011 12:32 AM Care Teams Appraisal Coordinator Relationship Specialty Start Date End Date Maryjo Kerr MD [address] [place] [address] PCP - General 01/17/22 Cachorro Abraham MD [address] [place] [address] [place] [id number] Obstetrics and Gynecology 08/21/20
--- OUTSIDE RECORDS SUMMARY | 2025-02-21 09:45 | XMS_ITS | Clinical Summary ---
Author Organization [facility] [address] [facility] Address [address] [place] [address] Phone Care Team Providers Care Branch Coordinator Name Role Phone Cory MORRISON MD, Reji Celis [phone] Maryjo Kerr MD Primary Care Provider Allergies No known active allergies Medications dextroamphetami [...] BY MOUTH ONCE DAILY NEEDED WITH FOOD 5 Active ibuprofen 200 mg tab/cap Take by [...] long-term (current) use of medicat ions 02/18/2018 Encounters Date Type Department Care Team Description 02/01/2025 Orders Only [facility] [address] [place] [address] [address] [place] [address] Josue Colin MD 01/31/2025 2:00 PM CDT Office Visit [facility] [address] [place] [address] [address] [place] [address] Marisol Ayala PA Varicose veins of leg with pain, left (Primary Dx); Varicose veins of leg with pain, right 01/31/2025 1:00 PM CDT - 01/31/2025 11:59 PM CDT Hospital Encounter [facility] Cardiac Testing [address] [place] [address] Varicose veins of leg with pain, bilateral Discharge Disposition: Discharge to home or self care 01/28/2025 11:08 AM BEADER - 01/28/2025 11:59 PM BEADER Hospital Encounter [facility] Medical Office Building [address] [place] [address] [address] [place] [address] Varicose veins of leg with pain, right Discharge Disposition: Discharge to home or self care 01/26/2025 Documentation [facility] [address] [place] [address] [place] [phone] Tejal Shearer MA 01/26/2025 Orders Only [facility] V[facility] at [address] [place] [address] Josue Colin MD 01/03/2025 11:00 AM BEADER - 01/03/2025 11:59 PM BEADER Hospital Encounter [facility] Medical Office Building [address] [place] [address] [address] [place] [address] Varicose veins of leg with pain, left Discharge Disposition: Discharge to home or self care 12/31/2024 11:05 AM BEADER - 12/31/2024 11:59 PM BEADER Hospital Encounter [facility] Medical Office Building [address] [place] [address] Varicose veins of leg with pain, left Discharge Disposition: Discharge to home or self care 12/31/2024 Documentation [facility] [address] [place] [phone] Aleah Barroso, RN 12/28/2024 Telephone [facility] [address] [place] [phone] Aleah Barroso, RN 12/28/2024 Orders Only [facility] at [address] [place] [address] Josue Colin MD from Last 3 Months Surgical History Surgery Date Site/Laterality Comments CHOLECYSTECTOMY gallbladder removed Social History Tobacco Use Types Packs/Day Years Used Date Smoking Tobacco: Never Alcohol Use Standard Drinks/Week Comments Yes 0 (1 standard drink = 0.6 oz pur e alcohol) Comments Unknown Sex and Gender Information Value Date Recorded Sex Assigned at Not on file Legal Sex Female 3:26 AM BEADER Gender Identity Not on file Sexual Orientation Not on file Obstetrics History Last Filed Vital Signs Vital Sign Reading [...] 01/31/2025 2:19 PM CDT Plan of Treatment Health Maintenance Due Date Last Done Comments Breast Cancer Screening-Mammogram 1975 Cervical Cancer Screening 1977 Colon Cancer Screening-Colonoscopy 1975 Depression Screening 1975 Hepatitis B Screening 1995 Regular Well Visit/Exam 18-64 1995 Covid-19 Vaccine (3 - 2023-2 5 season) 2024 09/10/2021, 08/20/2021 Influenza Vaccine (#1) 2024 DTaP/Tdap/Td Vaccine (3 - Td or Tdap) 04/04/2034 04/04/2024, 07/11/2011 Hepatitis C Screening Completed 09/07/2014 Pneumococcal vaccine <65 Aged Out No longer eligible based on patient's age to complete this topic Procedures Procedure Name Priority Date/Time Associated Diagnosis Comments US VEIN DUPLEX LOWER EXTREMITY BILATERAL COMPLETE Schedule Routine, Read Routine (OP Routine) 01/31/2025 2:30 PM CDT Varicose veins of leg with pain, bilateral US VEIN DUPLEX LOWER EXTREMITY LEFT LIMITED Schedule Routine, Read Routine (OP Routine) 01/03/2025 1:15 PM BEADER Varicose veins of leg with pain, left [...] Gender: F Study Date: 01/31/2025 01:29:25 PM Chute Greaser: Isabel Cameron Order Provider: JOSUE COLIN Quality: Adequate Ref [...] Gender: F Study Date: 01/31/2025 01:29:25 PM Chute Greaser: Isabel Cameron Order Provider: JOSUE COLIN Quality: Adequate Ref [...] EXTREMITY LEFT LIMITED, UNILATERAL (01/03/2025 1:15 PM BEADER) Anatomical Region Laterality Modality Vascular Left Ultrasound 01/03/2025 11:2 5 AM BEADER Narrative 01/04/2025 11:07 AM BEADER Lower Extremity Venous Report Patient Name: LULU HAIR E : 1975 (49y 1m) Gender: F Study Date: 01/03/2025 11:25:16 AM Chute Greaser: Whitney Montalvo Provider: JOSUE COLIN Quality: Adequate [...] By: Josue Colin MD 01/04/2025 10:56:22 AM BEADER Procedure Note Josue Colin MD - 01/04/2025 Lower Extremity Venous Report Patient Name: LULU HAIR E : 1975 (49y 1m) Gender: F Study Date: 01/03/2025 11:25:16 AM Chute Greaser: Whitney Montalvo Provider: JOSUE COLIN Quality: Adequate [...] By: Josue Colin MD 01/04/2025 10:56:22 AM BEADER us Josue Colin MD IMG US PROCEDURES Final Result * Serum Hepatitis C ab (09/07/2014 11:47 AM CDT) HCV ab Non-Reacti ve Non-Reacti ve HISTORICAL RESULTS Serum 09/07/2014 11:4 7 AM CDT us Asad Martinez MD LAB BLOOD ORDERABLES Final Resul t HISTORICAL RESULTS from Last 3 Months or Most Recently Relevant to Health Maintenance Insurance [facility] Care Teams Branch Coordinator Relationship Specialty Start Date End Date Maryjo Kerr MD [address] [facility] [address] [place] [address] PCP - General Family Practice 01/31/25 Reji Ray III, MD [address] [facility] [address] [place] [address] Consulting Physician Rheumatology 02/18/18
== END 2025-02-21 09:04 | disposition home or self-care (01) ==
LOC: ANHIMG 09:05
PROVIDERS: PCP Family Medicine; Visit Provider Family Medicine
DX: Z12.31 Encounter for screening mammogram for malignant neoplasm of breast (principal); R92.8 Other abnormal and inconclusive findings on diagnostic imaging of breast
CPT/HCPCS: 77063; 77067

== ENCOUNTER 2025-03-03 11:37 | Outpatient (CLI) | payer OTHER, SELFPAY ==
--- NOTE | ~2025-03-03 | MMUS_ITS ---
EXAMINATION: MM diagnostic destiny LT w seven, US breast LT complete HISTORY: Follow-up left breast asymmetry TECHNIQUE: Additional 3-D tomosynthesis images of the left breast were performed and synthetic 2-D im ages were generated. CAD analysis was submitted and interpreted. High resolution complete left breast ultrasound was performed. COMPARISON: 02/21/2025 BREAST PARENCHYMAL COMPOSITION: Dense: The breasts are heterogeneously dense, which may obscure small masses FINDINGS: MAMMOGRAPHIC FINDINGS: There is a small partially obscured mass in the upper central aspect of the left breast at approximat tamiko 12:00, middle third. There are no suspicious calcifications or architectural distortion. ULTRASOUND: Complete US of all 4 quadrants of the left breast/s and retroareolar region was reviewed. At 12:00, 1 cm from the nipple there is an oval circumscribed parallel oriented hypoechoic 7 mm mass with echoge boni hilum, no internal vascularity and posterior acoustic enhancement, likely benign complicated cyst or intramammary lymph node. At 1:00, 3 cm from the nipple there is an oval hypoechoic 3 mm mass with internal echoes, likely benign. IMPRESSION: 1. Probable benign left breast masses. 2. Recommend 6 month follow-up Limited left breast ultrasound. BI-RADS category 3, probably benign findings. Reviewed, dictated and finalized at location A. IMPRESSION: 1. Probable benign left breast masses. 2. Recommend 6 month follow-up Limited left breast ultrasound. BI-RADS category 3, probably benign findings.
--- OUTSIDE RECORDS SUMMARY | 2025-03-03 12:25 | XMS_ITS | Data Portability ---
Author Organization [facility], Main Office Address [address] [place] [address] [address] [place] [address] Assessment No assessment recorded. Plan of Treatment [...] 35 40 45 50* 55 60}} minutes [id number] with the patient and over 50% of this time was spent discussing treatment options, risks/benefits of each option and alternatives and answering her questions. [email or web address] Not available 03/29/2019 20:26:01 Reason for Referral None Reported. Problems Name Problem SNOMED Code Status Onset Date Resolution Date Notes Provider Name and Address Organization Details Recorded Time Residual hemorrhoidal skin tags 58302253 Active 2018 Karlene Joe MD [address] [facility],[address], [place], [address], [facility] 9 20:10:39 Pile easily reducible 387019506 Active 201803/29/19: No tx - removed tag Karlene Joe MD [address] [facility],[address], [place], [address], [facility] [place] 9 20:26:15 Loose stool 959665422 Active 2018 [place] [address] [place] [address],[address], [place], [address], [facility] 9 20:15:28 Multiple joint pain 25399854 Active 2018 Karlene Joe MD [address] [place] [address],[address], [place], [address], [facility] 9 20:18:34 Problem Notes None recorded. Procedures Surgical History Date Name Laterality Status Provider Name and Address Organization Details Recorded Time 03/29/20 19 Anoscopy completed Karlene Joe MD [address] [place] [address],[address], [place], [place], [address] [place], [place] [address]oid [facility] 03/29/2019 20:10:25 06/12/20 18 Date of Last Pap Smear [facility] 09/22/2019 10:42:20 11/24/19 16 Cholecystectomy completed Karlene Joe MD [address] [place] [address],[address], [place], [place], [address] [place], [place] [address]oid [facility] 03/29/2019 20:02:35 Hernia Repair [facility] 03/29/2019 11:08:51 Imaging Results None recorded. Procedure [...] 9 160.02 cm 12 /min 34.9 kg/m2 42736.7 g 98.4 [degF] 92 /min 146 mm[Hg] 90 mm[Hg] Aleah Potts [facility] 9 11:17:20 Social History Question Answer Notes LastModified by Organizat ion Details LastModified Time Tobacco Smoking Status Never Smoker Aleah ann [facility] 03/29/2019 11:06:16 How Much Tobacco Do You Chew? None Information not available 03/29/2019 What Is Your Occupation? [employer] [email or web address] Information not available 03/29/2019 Alcohol Use Yes [...] Kidney Stones N Hyperthyroidism N Hernia N Glaucoma N Depression Y COPD N Hypothyroidism N Accidental Bowel Leakage N Headaches/Migraines Y Deep Vein Thrombosis N Cardiac Dysrhythmia N Anxiety Disorder Y MRSA/VRE Exposure N Genital Herpes N Diverticulosis N Cancer N Stroke N Head Trauma N Genital Warts N Crohn's Disease N Liver Disease/Hepatitis N HIV/AIDS N High Cholesterol N Irritable Bowel Syndrome N Autoimmune Disease Y Kidney Disease N Anemia N Celiac Disease N Arthritis/Gout Y Anal/Rectal Trauma/Injury N Diabetes N Cataracts N [...] Recorded Time Tdap 07/11/2011 completed Beverly Deutsch [facility] 09/22/2019 10:41:55 Past Encounters Encounter ID Performer Location Encounter Start Date Encounter Closed Date Diagnosis/Indication Diagnosis SNOMED-CT Code Diagnosis ICD10 Code Diagnosis Note [id number] Karlene Joe MD Main Office [address] [facility] [address] [place] [address] 03/29/2019 10:57:43 03/29/2019 12:21:23 Residual hemorrhoidal skin tags 19664568 K64.4 The pedunculat ed tag was easily [...] not bother her). Pile easily reducible 27 [id number] K64.1 Stage 1 - 2 internal hemorrhoid [...] informed consent before treating her). Loose stool [id number] R1 9.5 I discussed with her that [...] George Member ID Guarantor Name 03/29/2019 1 [facility] [id number] Brandee Hair [id number] Brandee Hair Notes Date Note Type Note [...] studies were negative. She has seen a laundry manager and was diagnosed with fibromyalgia. She states I just don't accept this diagnosis . 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 Karlene Joe MD [address] [facility],[address], [place], [address], [facility] 03/29/2019 20:28:57 OBGyn Episode No OBEpisode recorded.
--- OUTSIDE RECORDS SUMMARY | 2025-03-03 12:25 | XMS_ITS | Data Portability ---
Author Organization [facility] [place] Address [address] [place] [address] Assessment Encounter Date Assessment Date Assessment LastModified by Organization Details LastModified Time 05/19/2024 05/19/2024 Annual gynecological exam performed. Patient will come back in a year unless there are new symptoms. [email or web address] Not available 05/19/2024 11:31:32 Plan of Treatment Reminders Order Date Submit Date Provider Last Modified By Organization Details Last Modified Time Details Appointments None recorded. Lab testosteron e free/testos terone total, ratio, serum 2023 024 [facility] (Lab), [address] [place], [address], 4 11:37:53 CMP, serum or plasma 2023 024 [facility] (Lab), [address], [place], [address], 4 11:37:52 testosteron e, free + total, serum 2023 024 [facility] [address], [place], [address], 5 05:01:40 shbg (sex hormone-bin ding globulin), serum 2023 024 [facility] [place], [address] [place] [address] [address], [place], [address], 5 05:01:19 lipid panel, serum 2023 024 [facility] [place], [address], [place], [address], 5 05:01:40 hepatic function panel, serum 2023 024 [facility] [place], [address], [place], [address], 5 05:01:40 dhea-sulfat e, serum 2023 024 [facility] (Lab), [address], [place], [address], 4 13:45:46 hormone panel, serum or plasma 2023 024 [facility] (Lab), [address], [place], [address], 4 13:48:15 progesteron e, serum 2023 024 [facility] (Lab), [address], [place], [address], 4 13:47:02 prolactin, serum 2023 024 [facility] (Lab), [address], [place], [address], 4 13:47:04 shbg (sex hormone-bin ding globulin), serum 2023 024 [facility] (Lab), [address] [place], [address], 4 13:47:05 TSH, serum or plasma 2023 024 [facility] (Lab), [address], [place], [address], 4 13:47:00 testosteron e free/testos terone total, ratio, serum 2023 024 [facility] (Lab), [address], [place], [address], 13:48:16 Referral None recorded. Procedures None recorded. Surgeries None recorded. Imaging US, transvagina l 2024 [address], [address], [place], [address], 5 19:57:23 US, pelvis 2023 [address], [address], [place], [address], 18:06:31 US, transvagina l 2023 [address], [address], [place], [address], 18:06:31 Medication Orders None recorded. Patient TargetsNo targets recorded. Patient InstructionsNo instructions recorded. Reason for Referral None Reported. Results Created Date Observation Date Name Description Value Unit Range Abnormal Flag Note LastModifiedBy Organization Detail LastModifiedTime 05/19/2005/19/2024 DHEA SULFA TE DHEA sulfate CANCEL LED Store d at [facility] e Not Available [facility] (Lab) [address], [place], [address], 05/21/2024 13:45:46 05/19/20 24 05/19/2024 TSH, REFLE X FREE T4 TSH, reflex free T4 CANCEL LED Store d at [facility] rect [facility] e Not Available [facility] (Lab) [address], [place], [address], 05/21/2024 13:47:00 05/19/20 24 05/19/2024 PROGE STERO NE progesterone CANCEL LED Store d at [facility] [place] [facility] e Not Available [facility] (Lab) [address], [place], [address], 05/21/2024 13:47:02 05/19/20 24 05/19/2024 PROLA CTIN prolactin CANCEL LED Store d at [facility] [place] [facility] e Not Available [facility] (Lab) [address], [place], [address], 05/21/2024 13:47:04 05/19/20 24 05/19/2024 HUMAN SEX HORMO NE MINDY NG GLOBU FRANKO human sex hormone binding globulin CANCEL LED Store d at [facility] [place] [facility] e Not Available [facility] (Lab) [address], [place], [address], 05/21/2024 13:47:05 05/19/20 24 05/19/2024 FSH, LH, ESTRA DIOL FSH, LH, estradiol CANCEL LED Store d at [facility] [place] [facility] e Not Available [facility] (Lab) [address], [place], [address], 05/21/2024 13:48:15 05/19/20 24 05/19/2024 TESTO STERO NE, FREE( DIALY SIS) AND TOTAL (LC/M S/MS) testosterone , free/total lc/MS/MS CANCEL LED Store d at [facility] [place] [facility] e Not Available [facility] (Lab) [address] [place], [address], 05/21/2024 13:48:16 05/19/20 24 05/19/2024 TESTO STERO NE, FREE( DIALY SIS) AND TOTAL (LC/M S/MS) testosterone , total 16 NG/dL 2-45 For addit ional infor hipolito tatum e refer to http: //laurita crews.mark stdia gnost ics.c om/fa q/ Total Testo stero neLCM [facility] Q165 (This link is being provi ded for infor matio nal/ educa rox l purpo ses only. ) This test was devel oped and its laine tical perfo rmanc e sofia cteri stics have been deter mined by [employer] ostic s [facility] [place], [place]. It has not been clear ed or appro shanita by the U.S. Food and Drug Admin istra tion. This assay has been valid ated pursu ant to the CLIA regul ation s and is used for clini onofre purpo ses. Not Available [facility] (Lab) [address], [place], [address], 05/25/2024 14:13:09 05/19/2005/19/2024 TESTO STERO NE, FREE( DIALY SIS) AND TOTAL (LC/M S/MS) testosterone , free 0.9 pg/mL 0.1-6. 4 This test was devel oped and its laine tical perfo rmanc e sofia cteri stics have been deter mined by [employer] ostic s Serge ls [facility] [place], [place]. It has not been clear ed or appro shanita by the U.S. Food and Drug Admin istra tion. This assay has been valid ated pursu ant to the CLIA regul ation s and is used for clini onofre purpo ses. Perfo rming Organ izati on [facility], [place] n: Site ID: AMD Name: Real Time Tomography sofia s Serge ls Insti tute Addre ss: [id number] [facility] [employer] [place], [place] Direc tor: Kiran Suggs MD PhD Not Available [facility] (Lab) [address], [place], [address], 05/25/2024 14:13:09 05/19/20 24 05/19/2024 IMAGE GUIDE [...] epith elial Lesmarcos crews or Nelson rojas ([facility]) . Elect kendall jennings by Justa D eLa Rosa on 024 at 2:14 PM ----- [...] ion is recom chauncey d, as clini mayte warra nted. Not Available [facility] (Lab) [address], [place], [address], 05/25/2024 15:18:14 06/02/20 24 06/02/2024 DHEA SULFA TE DHEA-sulfate 193 ug/dL Femal e Range s Age(y ) Range (ug/d L) 10-15 34-28 0 15-20 65-36 8 20-25 148-4 07 25-35 99-34 0 35-45 61-33 7 45-55 35-25 6 55-65 19-20 5 65-75 9-246 > 75 12-[address] [facility] (Lab) [address], [place], [address], 06/06/2024 22:21:53 06/02/20 24 06/02/2024 PROGE STERO [...] ster 58.70 -214. [address] [facility] (Lab) [address] [place], [address], 06/06/2024 22:21:53 06/02/20 24 06/02/2024 PROLA CTIN prolactin, total 16.20 NG/mL 4.79-2 3.30 This assay was perfo rmed using [employer] Corpo ratio n reage nts and test kits. Value s obtai ricky with other assay metho ds or kits canno t be used inter lewis eachinle . Not Available [facility] (Lab) [address] [place], [address], 06/06/2024 22:21:53 06/02/20 24 06/02/2024 FSH, LH, ESTRA DIOL estradiol 11.6 pg/mL This assay was perfo rmed using [employer] ratio n reage nts and test kits. Value s obtai ricky with other assay metho ds or kits canno t be used inter [facility] . Femal e Estra diol Range s: Folli cular phasE 12.4- 233 pg/mL Ovula tion phasE 41.0- 398 pg/mL Lutea l phasE 22.3- 341 pg/mL Postm enopa usal <5-13 8 pg/mL Healt hy Pregn ant Women 1st Trime ster 154-3 243 pg/mL 2nd Trime ster 1561- 28525 pg/mL 3rd Trime ster 8525- >3000 0 pg/mL Not Available [facility] (Lab) [address] [place], [address], 06/06/2024 22:21:54 06/02/20 24 06/02/2024 FSH, LH, ESTRA DIOL FSH 30.4 mIU/m L This assay was perfo rmed using [employer] Corpo ratio n reage nts and test kits. Value s obtai ricky with other assay metho ds or kits canno t be used inter [facility] . Femal es Folli cular : 3.5-1 2.5 mIU/m L Ovula tion: 4.7-2 1.5 mIU/m L Lutea l: 1.7-7 .7 mIU/m L Postm enopa use: 25.8- 134.8 mIU/m L Not Available [facility] (Lab) [address], [place], [address], 06/06/2024 22:21:54 06/02/20 24 06/02/2024 FSH, LH, ESTRA DIOL LH 11.8 mIU/m L This assay was perfo rmed using [employer] Corpo ratio n reage nts and test kits. Value s obtai ricky with other assay metho ds or kits canno t be used inter [facility] . Femal es Mid-F ollic ular: 2.4-1 2.6 mIU/m L Mid-C ycle: 14.0- 95.6 mIU/m L Mid-L uteal : 1.0-1 1.4 mIU/m L Postm enopa use: 7.7-5 8.5 mIU/m L Not Available [facility] (Lab) [address], [place], [address], 06/06/2024 22:21:54 06/02/20 24 06/02/2024 TSH, REFLE X FREE T4 TSH 2.30 uIU/m L 0.30-[address] [facility] (Lab) [address], [place], [address], 06/06/2024 22:21:54 06/02/20 24 06/02/2024 HUMAN SEX HORMO NE MINDY NG GLOBU FRANKO sex hormone binding globulin 73.2 nmole s/L 18.2-[address] [facility] (Lab) [address], [place], [address], 06/06/2024 22:21:55 06/02/20 24 06/02/2024 TESTO STERO NE, FREE( DIALY SIS) AND TOTAL (LC/M S/MS) testosterone , total 13 NG/dL 2-45 For addit ional bozenar hipolito tatum e refer to http: //[facility] ashok williamque stdia gnost ics.c om/fa q/ Total Testo stero neLCM SMSFA Q165 (This link is being provi ded for infor matmarcos nal/ educa rox l purpo ses only. ) This test was devel oped and its laine tical perfo rmanc e sofia cteri stics have been deter mined by Real Time Tomography ostic s [facility] [place]. It has not been clear ed or appro shanita by the U.S. Food and Drug Admin istra tion. This assay has been valid ated pursu ant to the CLIA regul ation s and is used for clini onofre purpo ses. Not Available [facility] (Lab) [address], [place], [address], 06/06/2024 22:21:55 06/02/20 24 06/02/2024 TESTO STERO NE, FREE( DIALY SIS) AND TOTAL (LC/M S/MS) testosterone , free 1.1 pg/mL 0.1-6. 4 This test was devel oped and its laine tical perfo rmanc e sofia cteri stics have been deter mined by [employer] Tom[employer] ostic s Serge ls [facility], [place]. It has not been clear ed or appro shanita by the U.S. Food and Drug Admin istra tion. This assay has been valid ated pursu ant to the CLIA regul ation s and is used for clini onofre purpo ses. Perfo rming Organ izati on [facility]: Site ID: AMD Name: Real Time Tomography ostic s Serge ls [place] monie Addre ss: [id number] [place], [place] Direc tor: Kiran Suggs MD PhD Not Available [facility] (Lab) [address], [place], [address], 06/06/2024 22:21:55 08/16/20 24 08/16/2024 CMP(C OMPRE HENSI VE METAB OLIC PANEL ) sodium 140 mmol/ L 133-[address] [facility] (Lab) [address], [place], [address], 08/22/2024 11:37:52 08/16/20 24 08/16/2024 CMP(C OMPRE HENSI VE METAB OLIC PANEL ) potassium 4.7 mmol/ L 3.5-5. [address] [facility] (Lab) [address], [place], [address], 08/22/2024 11:37:52 08/16/20 24 08/16/2024 CMP(C OMPRE HENSI VE METAB OLIC PANEL ) chloride 103 mmol/ L 98-[address] [facility] (Lab) [address], [place], [address], 08/22/2024 11:37:52 08/16/20 24 08/16/2024 CMP(C OMPRE HENSI VE METAB OLIC PANEL ) carbon dioxide 32 mmol/ L 21-[address] [facility] (Lab) [address], [place], [address], 08/22/2024 11:37:52 08/16/20 24 08/16/2024 CMP(C OMPRE HENSI VE METAB OLIC PANEL ) anion gap 5 mmol/ L 4-[address] [facility] (Lab) [address], [place], [address], 08/22/2024 11:37:52 08/16/20 24 08/16/2024 CMP(C OMPRE HENSI VE METAB OLIC PANEL ) blood urea nitrogen 24 mg/dL 7-25 Not Available [facility] (Lab) [address], [place], [address], 08/22/2024 11:37:52 08/16/20 24 08/16/2024 CMP(C OMPRE HENSI VE METAB OLIC PANEL ) creatinine 0.72 mg/dL 0.60-[address] [facility] (Lab) [address], [place], [address], 08/22/2024 11:37:52 08/16/20 24 08/16/2024 CMP(C OMPRE HENSI VE METAB OLIC PANEL ) egfrcr (CKD-epi 2020) >90 mL/mi n/1.7 3_m2 >=[address] [facility] (Lab) [address], [place], [address], 08/22/2024 11:37:52 08/16/20 24 08/16/2024 CMP(C OMPRE HENSI VE METAB OLIC PANEL ) calcium 9.1 mg/dL 8.3-[address] [facility] (Lab) [address], [place], [address], 08/22/2024 11:37:52 08/16/20 24 08/16/2024 CMP(C OMPRE HENSI VE METAB OLIC PANEL ) glucose 92 mg/dL 70-[address] [facility] (Lab) [address], [place], [address], 08/22/2024 11:37:52 08/16/20 24 08/16/2024 CMP(C OMPRE HENSI VE METAB OLIC PANEL ) protein, total 6.7 g/dL 6.4-8. [address] [facility] (Lab) [address], [place], [address], 08/22/2024 11:37:52 08/16/20 24 08/16/2024 CMP(C OMPRE HENSI VE METAB OLIC PANEL ) albumin 4.6 g/dL 3.5-5. [address] [facility] (Lab) [address], [place], [address], 08/22/2024 11:37:52 08/16/20 24 08/16/2024 CMP(C OMPRE HENSI VE METAB OLIC PANEL ) ALT 27 units /L 9-[address] [facility] (Lab) [address], [place], [address], 08/22/2024 11:37:52 08/16/20 24 08/16/2024 CMP(C OMPRE HENSI VE METAB OLIC PANEL ) alkaline phosphatase 50 units /L 34-[address] [facility] (Lab) [address], [place], [address], 08/22/2024 11:37:52 08/16/20 24 08/16/2024 CMP(C OMPRE HENSI VE METAB OLIC PANEL ) AST 21 units /L 13-[address] [facility] (Lab) [address], [place], [address], 08/22/2024 11:37:52 08/16/20 24 08/16/2024 CMP(C OMPRE HENSI VE METAB OLIC PANEL ) bilirubin, total 0.4 mg/dL 0.2-1. [address] [facility] (Lab) [address], [place], [address], 08/22/2024 11:37:52 08/16/20 24 08/16/2024 TESTO STERO NE, FREE( DIALY SIS) AND TOTAL (LC/M S/MS) testosterone , total 18 NG/dL 2-45 For addit ional infor hipolito tatum e refer to http: //laurita crews.que stdia gnost ics.c om/fa q/ Total Testo stero neLCM [facility] Q165 (This link is being provi ded for infor christa villegas/ educa rox l purpo ses only. ) This test was devel oped and its laine tical perfo rmanc e sofia cteri stics have been deter mined by [employer] Serge [place], [place]. It has not been clear ed or appro shanita by the U.S. Food and Drug Admin istra tion. This assay has been valid ated pursu ant to the CLIA regul ation s and is used for clini onofre purpo ses. Not Available [facility] (Lab) [address], [place], [address], 08/22/2024 11:37:53 08/16/20 24 08/16/2024 TESTO STERO NE, FREE( DIALY SIS) AND TOTAL (LC/M S/MS) testosterone , free 1.4 pg/mL 0.1-6. 4 This test was devel oped and its laine tical perfo rmanc e sofia cteri stics have been deter mined by [employer] ostic s [place], [place]. It has not been clear ed or appro shanita by the U.S. Food and Drug Admin istra tion. This assay has been valid ated pursu ant to the CLIA regul ation s and is used for clini onofre purpo ses. Perfo rming Organ izati on Infor christa n: Site ID: AMD Name: Real Time Tomography sofia s Serge ls [facility] Addre ss: [id number] [place], [place] Direc tor: Kiran Suggs MD PhD Not Available [facility] (Lab) [address], [place], [address], 08/22/2024 11:37:53 06/02/2006/02/2024 US, pelvi s No observ ation record ed. [email or web address] [place] [address], [place], [address], 06/02/2024 18:14:47 06/02/20 24 06/02/2024 US, trans vagin al No observ ation record ed. [email or web address] [place] [address], [place], [address], 06/02/2024 18:14:38 06/02/20 24 06/02/2024 US, pelvi s No observ ation record ed. [email or web address] Herrera [address], [facility] [place], [address], 06/10/2024 09:04:41 12/08/19 25 12/08/2024 US, trans vagin al No observ ation record ed. [email or web address] [place] [address], [place], [address], 12/08/2024 14:36:12 12/08/19 25 12/08/2024 US, trans vagin al No observ ation record ed. KYLEE Herrera [address], [place], [address], 12/12/2024 11:58:47 Result Notes None recorded. Procedures Surgical History Date Name Laterality Status Provider Name and Address Organization Details Recorded Time 05/19/20 24 Date of Last Pap Smear completed [facility] 08/16/2024 15:11:28 05/11/20 24 Most Recent Bone Density completed [facility] 05/19/2024 11:39:47 02/09/20 24 Date of Last Mammogram completed [facility] 05/19/2024 11:38:14 05/24/20 23 Date of Last Colonoscopy completed [facility] 05/19/2024 11:39:09 05/24/20 23 repair of musculotendinous cuff of shoulder completed [facility] 05/19/2024 11:43:30 12/25/19 15 procedure on gallbladder completed [facility] 05/19/2024 11:43:45 Imaging Results Imaging Date Name Status LastModified by Organization Details LastModified Time 06/02/2024 US, pelvis completed [email or web address] [place] [address], [place], [address], 06/02/2024 18:14:47 06/02/2024 US, transvaginal completed [email or web address] [place] [address], [place], [address], 06/02/2024 18:14:38 06/02/2024 US, pelvis completed llamay Sharon [address], [place], [address], 06/10/2024 09:04:41 12/08/2024 US, transvaginal completed [email or web address] [place] [address], [place], [address], 12/08/2024 14:36:12 12/08/2024 US, transvaginal completed KYLEE Sharon [address], [place], [address], 12/12/2024 11:58:47 Procedure Notes None recorded. Medical [...] transdermal gel packet TESTOSTER ONE 5% CREAM (P#[id number]) (TESTOSTE RAMÓN MICRONIZE D YAM YAM CRYSTALS, [...] Address Organization Details Last Updated DateTime 05/19/2024 02712.45 g 26.7 kg/m2 160.02 cm 131 mm[Hg] 79 mm[Hg] Raine Story [facility] 4 11:33:42 Date Recorded Body height Body mass index (BMI) Body weight Systolic blood pressure Diastolic blood pressure Provider Name and Address Organization Details Last Updated DateTime 06/09/2024 160.02 cm 25.6 kg/m2 60122.18 g 118 mm[Hg] 77 mm[Hg] Evy Collins [facility] 4 10:17:07 Date Recorded Body height Body mass index (BMI) Body weight Systolic blood pressure Diastolic blood pressure Provider Name and Address Organization Details Last Updated DateTime 08/16/2024 160.02 cm 24.4 kg/m2 07048.75 g 123 mm[Hg] 80 mm[Hg] Raine Story [facility] 4 15:10:22 Social History Question Answer Notes LastModified by Organizat ion Details LastModified Time Tobacco Smoking Status Former [facility] 05/19/2024 11:42:32 What Is Your Level Of Alcohol Consumption? Occasional [email or web address] Information not available 05/19/2024 Are You Blind Or Do You Have Difficulty Seeing? No [email or web address] Information not available 05/19/2024 In The 14 Days Before Symptom Onset, Have You Had Close Contact With A Laboratory-confir med COVID-19 While That Case Was Ill? No [email or web address] Information not available 05/19/2024 In The 14 Days Before Symptom Onset, Have You Had Close Contact With A Person Who Is Under Investigation For COVID-19 While That Person Was Ill? No [email or web address] Information not available 05/19/2024 Have You Been To An Area Known To Be High Risk For COVID-19? No Information not available 05/19/2024 Are You Deaf Or Do You Have Serious Difficulty Hearing? No [email or web address] Information not available 05/19/2024 What Type Of Diet Are You Following? REGULAR [email or web address] Information not available 05/19/2024 Do You Use Your Seat Belt Or Car Seat Routinely? Yes [email or web address] Information not available 05/19/2024 Are You Sexually Active? Yes [email or web address] Information not available 05/19/2024 Do You Have Smoke And Carbon Monoxide Detectors In Your Home? Yes Information not available 05/19/2024 Do You Use Any Illicit Or Recreational Drugs? No [email or web address] Information not available 05/19/2024 Do You Use Sunscreen Routinely? Yes [email or web address] Information not available 05/19/2024 Sex: Unknown Functional Status Question Answer Note LastModified by Organizat ion Details LastModified Time Do you have difficulty walking or climbing stairs? No [email or web address] Information not available 05/19/2024 Are you able to walk? [email or web address] Information not available 05/19/2024 Are you able to care for yourself? Yes [email or web address] Information not available 05/19/2024 Do you have difficulty dressing or bathing? No [email or web address] Information not available 05/19/2024 Mental Status None recorded. Family History Relationship Description Onset Age of this Age Resolved Age Notes LastModified by Organization Details LastModified Time Maternal Uncle Diabetes mellitus [email or web address] Not available 2023 11:41:54 Mother Hypertensive disorder [email or web address] Not available 2023 11:42:02 Sister Hypertensive disorder [email or web address] Not available 2023 11:42:09 Medical History Condition [...] SNOMED-CT Code Diagnosis ICD10 Code Diagnosis Note [id number] AMANDA Irene [place] [address] [address] 05/19/2024 11:03:53 05/19/2024 12:10:32 Gynecologic examination 23936934 Z01.419 WWEBC - ParaGuard IUD, inserted around [...] today's plan if desired. Lesion of cervix 0999877 01 N88.9 cervical polyp noted on examwill obtain labs and pelvic u/s d/t irregular periods (discussed paraguard SE's, possible perimenopa use, polyp, etc)discus sed polyp removal pending u/squestio ns answered Time spent in visit is a total of 30 mins with at least 50% of visit consisting of counseling and review of plan of care. Irregular periods 105656 07 N92.6 Abnormal u terine bleeding [id number] 9100 N93.9 [id number] [facility] [address] [address] 06/02/2024 11:44:14 06/02/2024 13:09:04 Abnormal uterine bleeding [id number] 9100 N93.9 N84.1 [id number] MAO MATTHEWS MD [place] [address] [address] 06/09/2024 09:55:56 06/09/2024 15:03:00 Lack or loss of sexual desire [id number] F52.0 - patient reports no active or reactive sexual desire- no dyspareuni a or inciting event- distressin g, causing problems for patient- discussed expectant management vs counseling sources like [employer] luis e vs medical management - given patient's likely perimenopa usal status based on labwork, could trial testostero ne cream for hypoactive sexual desire disorder- will check baseline labs as below- if no improvemen t in symptoms in 6-8 weeks and normal labs, would recommend d/c due to nonrespons e. Polyp of cervix [id number] N84.1 - noted on most recent pelvic exam- asymptomat ic- no evidence of large polyp on pelvic US- discussed removal vs expectant management , patient desires expectant management at this time Irregular periods 142369 07 N92.1 - patient reports 1 year [...] understand ing with plan Cyst of ovary [id number] N 83.292 - small complex cyst on L ovary, 1.5x2cm- asymptomat ic- recommend repeat US in 6 months to reevaluate [id number] Ott [place] [address] [address] 12/08/2024 12:35:13 12/08/2024 13:30:23 Cyst of left ovary [id number] N83.202 [id number] MOA MATTHEWS MD [place] [address] [address] 08/16/2024 15:02:01 08/16/2024 15:42:02 Lack or loss of sexual desire [id number] F52.0 - Hypoactive sexual desire disorder- previous [...] George Member ID Guarantor Name 05/19/2024 1 [facility] (MEDICAID HMO) [id number] Brandee Hair [id number] Brandee Hair 06/02/2024 1 [facility] [place] ([place]) [id number] Brandee Hair [id number] Brandee Hair 06/09/2024 1 [facility] [place] [id number] Brandee Hair [id number] Brandee Hair 08/16/2024 1 [facility] [place] [id number] Brandee Hair [id number] Brandee Hair 12/08/2024 1 [facility] [place] [id number] Brandee Hair [id number] Brandee Hair Notes Date Note Type Note [...] use; Encourage regular mammograms starting age 42Notes:48yo [id number] h/o abnormal papslast pap 08/2022 - normal per ptBC : Paraguard - inserted around 7 yrs agoSA with steady partnermammogram last olonoscopy last 05/2023 Period irregular for the past 1 yr. Has skipped some months, other months has had 2 period in one month, spotting between periods at times, increased cramping. neg vaginal d/c, odors, itching AMANDA Irene [address], [place], [address], [facility] 05/19/2024 12:09:53 06/09/2024 text/html Patient presents [...] pain. MAO MATTHEWS MD [address], [place], [address], [facility] 06/09/2024 14:25:48 08/16/2024 text/html Patient presents for med check. She started transdermal testosterone supplementation for HSDD. She reports a great improvement in her HSDD. No hair growth or loss, increased acne, deepening voice or other side effects. She does report intermittent hot flashes, however they are tolerable. She would like to continue testosterone replacement for HSDD MAO MATTHEWS MD [address], [place], [address], [facility] 08/16/2024 15:39:32 OBGyn Episode Ob Episode Information Episode Created Date Number of Fetuses Patient Bloodtype Patient rh Status Prepregnancy Weight lbs Domestic Partner Domestic Partner Phone Father Name [employer] Sanitarian Status 05/19/20 24 1 CLOSED Fetus Data First Name Last Name Admitted to NICU Weight (g) Sex Living Outcome Pediatric Complications Fetus ID Race Codes Race Delivery Type 3656.85 8704 M Full Term 52189 Vaginal Delivery Den Calculation Initial Den Date [...] Domestic Partner Domestic Partner Phone Father Name Environmental [employer] Sanitarian Status 05/19/20 24 1 CLOSED Fetus Data First Name Last Name Admitted to NICU Weight (g) Sex Living Outcome Pediatric Complications Fetus ID Race Codes Race Delivery Type 3345.24 1 F Full Term [id number] Vaginal Delivery Den Calculation Initial Den Date [...] Domestic Partner Domestic Partner Phone Father Name Environmental [employer] Sanitarian Status 05/19/20 24 1 CLOSED Fetus Data First Name Last Name Admitted to NICU Weight (g) Sex Living Outcome Pediatric Complications Fetus ID Race Codes Race Delivery Type 3430.06 2704 M Full Term [id number] Vaginal Delivery Den Calculation Initial Den Date [...]
--- OUTSIDE RECORDS SUMMARY | 2025-03-03 12:25 | XMS_ITS | Clinical Summary ---
Author Organization [facility] Address [address] [place] [address] Care Team Providers Care Mill Operator Head Name Role Phone Cachorro Abraham MD Unavailable [phone] Maryjo Kerr MD Primary Care Provider Source Comments [facility],non-owned Affiliates and Associated Physician Practices is amultiple site organization consisting of ambulatory clinics and hospital sitesin [place], [place], [place] and [place]. This disclosure is being madepursuant to the Care Everywhere program and may not contain all information available regarding this patient. Last updated 18.[facility] Nonabox Allergies No known active allergies Medications * Be aware that medications may not be up to date on this document. Alwaysverify current medications with the patient. Medication Sig Dispensed Refills Start Date End Date Status PARAGARD INTRAUTERINE COPPER IUD by Intrauterine route as directed Inserted 08/15/2016. Lot: [id number] Exp date: 02/22/2022. [facility]: [id number] Active amLODIPine (NORVASC) 5 MG tablet Take [...] N/a Assessment & Plan (10/31/2022 5:56 PM CRUSHER): Reviewed cervical cancer pathophysiology as well as [...] [address], [address] [place] [id number] Seth Singh APRN-CNP Refill Request 02/02/2025 11:30 AM CDT - 02/02/2025 11:59 PM CDT Hospital Encounter [facility] Physician [facility] - Orthopedics [address] [place] [phone] Seth Singh APRN-CNP Discharge Disposition: Home or Self Care 02/02/2025 11:30 AM CDT Office Visit [facility] Physician [facility] - Orthopedic Surgery [address] [place] [phone] Seth Singh APRN-CNP Primary osteoarthritis of left knee (Primary Dx) 02/02/2025 Travel 01/18/2025 Refill [facility] Physician [facility] - Orthopedic Surgery [address] [place] [address] Seth Singh APRN-CNP Refill Request 12/24/2024 1:30 PM CRUSHER Office Visit [facility] Physician [facility] - Orthopedic Surgery [address] [place] [address] Seth Singh APRN-CNP Primary osteoarthritis of left knee (Primary Dx) 12/24/2024 Travel 12/14/2024 2:40 PM CRUSHER Office Visit [facility] - Orthopedic Surgery [address], [address] [place] [address] Axel Santana MD S/P arthroscopy of right [...] 65.8 kg (145 lb) 12/24/2024 1:31 PM CRUSHER Height 160 cm (5' 3 ) 12/24/2024 1:31 PM CRUSHER Body Mass Index 25.69 12/24/2024 1:31 PM CRUSHER Plan of Treatment Health Maintenance Due Date [...] or Tdap) 07/11/2021 07/11/2011 COVID-19 VACCINE ( season) 2024 SCREENING FOR DIABETES 12/14/2024 7, 11/08/2014, 07/10/2011 INFLUENZA VACCINE (Season Ended) 2025 PAP with HPV 10/31/2027 10/31/2022, 10/11/2020, 06/12/2018, Additional history exists ZOSTER VACCINE (1 [...] this topic Medical Devices Implanted Type Area Cashier Host/Hostess Device Identifier Shelf Expiration Date Model / Serial / Lot [place] Sut Jggrknt Mxbrd 2.9mm 2 Ld Sft Implanted:Qty : 1 on 08/23/2024 by Axel Santana MD at [facility] Right: Shoulder [employer] [id number] 02/27/2029 [id number] / / [id number] Procedures Procedure Name Priority Date/Time Associated Diagnosis Comments ND DRAIN/INJECT LARGE JOINT/BURSA Routine 02/02/2025 2:29 PM CDT Primary osteoarthritis of left knee XR KNEE LEFT 4VW OR MORE Routine 02/02/2025 12:48 PM CDT Primary osteoarthritis of left knee PAP IG LB RFLX HPV APTIMA ASCU Routine 10/31/2022 4:21 PM CRUSHER Well woman exam with routine gynecological exam HEMOGLOBIN A1C Routine 02/05/2017 9:22 AM CDT Fatigue due to exposure, initial encounter from Last 3 Months or Most Recently Relevant to Health Maintenance Results * ND DRAIN/INJECT LARGE JOINT/BURSA (02/02/2025 2:29 PM CDT) Narrative Gulshan Bolanos, DO - 02/02/2025 2:29 PM CDT Seth Singh, VARNISHER PLASTICOATER-VIDEO OPERATOR 02/03/2025 4:54 PM After risks, benefits, alternatives [...] were given to the patient. Seth Singh APRN-VIDEO OPERATOR PROCEDURE/MINOR SURGICAL ORDERABLES * XR Knee Left [...] MD on 02/02/2025 12:50 PM Seth Singh VARNISHER PLASTICOATER-VIDEO OPERATOR DIAGNOSTIC IMAGI NG ORDERABLES * PAP IG LB RFLX HPV APTIMA ASCU (10/31/2022 4:21 PM CRUSHER) Diagnosis [facility] INSURANCE BILL Comment:NEGATIVE FOR INTRAEP ITHELIAL LESION OR MALIGNANCY. Specimen Adequacy [facility] INSURANCE BILL Comment: Satisfactory for evaluation. Endocervical and/or squamous metaplastic cells (endocervical component) are present. Clinician Provided ICD10 [facility] INSURANCE BILL Comment:Z01.419 Performed by [facility] INSURANCE BILL Comment:Felicita Williamson, Cytot echnologist (ASCP) [...] use of an image guided system. Note [facility] INSURANCE BILL Comment: The HPV DNA reflex criteria were not met with this specimen result therefore, no HPV testing was performed. . Pathology/Cytolog y PART OF UTERINE CERVIX / Unknown 10/31/2022 4:21 PM CRUSHER 11/01/2022 Narrative [facility] INSURANCE BILL - 11/08/2022 1:08 PM CRUSHER No. of containers..01 ThinPrep Vial Resulting Agency Comment Lab Testing performed at: [address] [place] [id number] Cachorro Abraham MD LAB - PATHOLOGY/CYTO LOGY ORDERABLES [facility] INSURANCE BILL [address] [place] [address] * (ABNORMAL) HEMOGLOBIN A1C (HgbA1C) (02/05/2017 9:22 AM CDT) Hemoglobin A1c 5.7(H) 4.8 - 5.6 % [facility] INSURANCE BILL Comment: . Pre-diabetes: 5.7 - 6.4 Diabetes: >6.4 Glycemic control for adults with diabetes: <7.0 Whole Blood BLOOD SPECIMEN WITH EDTA / Unknown 02/05/2017 9:22 AM CDT 02/05/2017 Narrative Resulting Agency Comment [facility] [address] [facility] [phone] Zeyad Cm Jr., MD LAB - MICROSTRATEGY ARCHITECT RY ORDERABLES [facility] INSURANCE BILL [address] [place] [address] from Last 3 Months or Most Recently Relevant to Health Maintenance Advance Directives * FULL RESUSCITATION (Latest Code Status on File) Date Activated Date Inactivated Comments 07/10/2011 1:17 PM 07/14/2011 12:32 AM Care Teams Mill Operator Head Relationship Specialty Start Date End Date Maryjo Kerr MD [address] [place] [address] PCP - General 01/17/22 Cachorro Abraham MD [address] [place] [address] [place] [phone] Obstetrics and Gynecology 08/21/20
--- OUTSIDE RECORDS SUMMARY | 2025-03-03 12:25 | XMS_ITS | Clinical Summary ---
Author Organization [facility] [address] [facility] Address [address] [place] [address] Phone Care Team Providers Care Motorcycle Service Technician Name Role Phone Cory MORRISON MD, Reji Celis [phone] Maryjo Kerr MD Primary Care Provider Allergies [...] Active Additional Information Patient not taking.Reported on 02/28/2025 ALPRAZolam (XANAX) 0.5 mg tablet Bring both tablets to [address] day of procedure. 2 tablet 5 Active Additional Information Patient not taking.Reported on 02/28/2025 celecoxib (CeleBREX) 200 mg capsule TAKE 1 [...] lower extremi ties 07/21/2024 Assessment & Plan (03/01/2025 3:04 PM CDT): Impression: Patient is status post staged bilateral radiofrequency ablation with stab phlebectomies. Stab phlebectomy sites to bilateral lower extremities have healed. Discomfort to bilateral lower extremities have resolved. Venous duplex scan reveals an ablated great saphenous vein with no acute DVTs. Plan: Patient to continue utilizing compression stockings as needed. -patient to follow up as needed. Assessment & Plan (08/18/2024 10:58 AM CDT): [...] Encounters Date Type Department Care Team Description 02/28/2025 3:00 PM CDT Office Visit [facility] Medical Group Vascular and Vein Surgery [facility] [address] [place] [address] Amanda De León NP Symptomatic varicose veins of both lower extremities (Primary Dx) 02/28/2025 2:09 PM CDT - 02/28/2025 11:59 PM CDT Hospital Encounter [facility] Medical Office Building [address] [place] [address] [address] [place] [address] Varicose veins of leg with pain, right Discharge Disposition: Discharge to home or self care 02/01/[address] [facility] Vascular and Vein Surgery [address] [facility] [address] [place] [address] Josue Colin MD 01/31/2025 2:00 PM CDT Office Visit [facility] Medical [facility] Vascular and Vein Surgery [address] [facility] [address] [place] [address] Marisol Ayala PA Varicose veins of leg with pain, left (Primary Dx); Varicose veins of leg with pain, right 01/31/2025 1:00 PM CDT - 01/31/2025 11:59 PM CDT Hospital Encounter [facility] Cardiac Testing [address] [place] [address] Varicose veins of leg with pain, bilateral Discharge Disposition: Discharge to home or self care 01/28/2025 11:08 AM CHILDREN'S AIDE - 01/28/2025 11:59 PM CHILDREN'S AIDE Hospital Encounter [facility] Medical Office Building [address] [place] [address] Varicose veins of leg with pain, right Discharge Disposition: Discharge to home or self care 01/26/[address] [facility] Medical [facility] Vascular and Vein Surgery [address] [place] [address] Tejal Shearer MA 01/26/[address] [facility] Medical [facility] Vascular at [address] [place] [address] Josue Colin MD 01/03/2025 11:00 AM CHILDREN'S AIDE - 01/03/2025 11:59 PM CHILDREN'S AIDE Hospital Encounter [facility] Medical Office Building [address] [place] [address], [place] [address] Varicose veins of leg with pain, left Discharge Disposition: Discharge to home or self care 12/31/2024 11:05 AM CHILDREN'S AIDE - 12/31/2024 11:59 PM CHILDREN'S AIDE Hospital Encounter [facility] Medical Office Building [address] [place] [address] Varicose veins of leg with pain, left Discharge Disposition: Discharge to home or self care 12/31/2024 Documentation [facility] Vascular and Vein Surgery [facility] [address] [place] [address] Aleah Barroso, RN 12/28/2024 Telephone [facility] Vascular and Vein Surgery [address] [facility] [address] [place] [address] Aleah Barroso, RN 12/28/2024 Orders Only [facility] Vascular at [address] [place] [address] Josue Colin MD from Last 3 Months [...] on file Legal Sex Female 3:26 AM CHILDREN'S AIDE Gender Identity Not on file Sexual Orientation Not on file Obstetrics History Last Filed Vital Signs Vital Sign Reading Time Taken Comments Blood Pressure 147/92 02/28/2025 2:52 PM CDT Pulse 101 02/28/2025 2:52 PM CDT Temperature - - Respiratory Rate - - Oxygen Saturation 100% 08/18/2024 9:17 AM CDT Inhaled Oxygen Concentration - - Weight 65.8 kg (145 lb) 02/28/2025 2:52 PM CDT Height 160 cm (5' 3 ) 02/28/2025 2:52 PM CDT Body Mass Index 25.69 02/28/2025 2:52 PM CDT Plan of Treatment Health Maintenance Due Date Last Done Comments Breast Cancer Screening-Mammogram 1975 Cervical Cancer Screening 1975 Colon Cancer Screening-Colonoscopy 1975 Depression Screening 1975 Hepatitis B Screening 1995 Regular Well Visit/Exam 18-64 1995 Covid-19 Vaccine ( - 2023-2 5 season) 2024 09/10/2021, 08/20/2021 Influenza Vaccine (Season Ended) 2025 DTaP/Tdap/Td Vaccine (3 - Td or Tdap) 04/04/2034 04/04/2024, 07/11/2011 Hepatitis C Screening Completed 09/07/2014 Pneumococcal vaccine <65 Aged Out No longer eligible based on patient's age to complete this topic Procedures Procedure Name Priority Date/Time Associated Diagnosis Comments US VEIN DUPLEX LOWER EXTREMITY RIGHT LIMITED Schedule Routine, Read Routine (OP Routine) 02/28/2025 2:47 PM CDT Varicose veins of leg with pain, right US VEIN DUPLEX LOWER EXTREMITY BILATERAL COMPLETE Schedule Routine, Read Routine (OP Routine) 01/31/2025 2:30 PM CDT Varicose veins of leg with pain, bilateral US VEIN DUPLEX LOWER EXTREMITY LEFT LIMITED Schedule Routine, Read Routine (OP Routine) 01/03/2025 1:15 PM CHILDREN'S AIDE Varicose veins of leg with pain, left SERUM HEPATITIS C AB Routine 09/07/2014 11:47 AM CDT from Last 3 Months or Most Recently Relevant to Health Maintenance Results * US VEIN DUPLEX LOWER EXTREMITY RIGHT LIMITED, UNILATERAL (02/28/2025 2:47 PM CDT) Anatomical Region Laterality Modality Vascular Right Ultrasound 02/28/2025 2:06 PM CDT Narrative 03/02/2025 1:13 PM CDT Lower Extremity Venous Report Patient Name: LULU HAIR E : 1975 (49y 3m) Gender: F Study Date: 02/28/2025 02:06:50 PM Remote Inpatient Coder: Karen Grey Provider: JOSUE COLIN Quality: Adequate Ref Provider: JOSUE COLIN PROCEDURES: Vascular Report: A non-invasive vascular imaging study of the right lower extremity veins was performed using B-mode ultrasound, color flow, and spectral Doppler. INDICATIONS: I83.811 Varicose veins of right lower extremity with pain. HISTORY: S/P RFA Right GSV with phlebs 01/28/2025. COMPARISONS: No change compared to prior study. The previous exam was completed on 01/31/2025. FINDINGS: Right: Right Common femoral vein is patent and compressible. Right Great Saphenous Vein is ablated 2.3cm from Saphenofemoral Junction to knee. - CONCLUSIONS: 1. Successful ablation of the right great saphenous vein no evidence of deep vein thrombosis. ATTESTATION: I have reviewed and interpreted the pertinent images and measurements of this study. I attest to the conclusions in the final report that is provided above. Electronically Signed By: Josue Colin MD 03/02/2025 1:08:57 PM CDT Procedure Note Josue Colin MD - 03/02/2025 Lower Extremity Venous Report Patient Name: LULU HAIR E : 1975 (49y 3m) Gender: F Study Date: 02/28/2025 02:06:50 PM Remote Inpatient Coder: Karen Grey Provider: JOSUE COLIN Quality: Adequate Ref Provider: JOSUE COLIN PROCEDURES: Vascular Report: A non-invasive vascular imaging study of the right lowerextremity veins was performed using B-mode ultrasound, color flow, and spectral Doppler. INDICATIONS: I83.811 Varicose veins of right lower extremity with pain. HISTORY: S/P RFA Right GSV with phlebs 01/28/2025. COMPARISONS: No change compared to prior study. The previous exam was completed on01/31/2025. FINDINGS: Right: Right Common femoral vein is patent and compressible. Right GreatSaphenous Vein is ablated 2.3cm from Saphenofemoral Junction to knee. - CONCLUSIONS: 1. Successful ablation of the right great saphenous vein no evidence ofdeep vein thrombosis. ATTESTATION: I have reviewed and interpreted the pertinent images and measurements ofthis study. I attest to the conclusions in the final report that is provided above. Electronically Signed By: Josue Colin MD 03/02/2025 1:08:57 PM CDT us Josue Colin MD IMG US PROCEDURES Final Result * US Vein Duplex Lower Extremity Bilateral Complete (01/31/2025 2:30 PM CDT) Anatomical Region Laterality Modality Vascular Bilateral Ultrasound 01/31/2025 1:29 PM CDT Narrative 01/31/2025 2:34 PM CDT Lower Extremity Venous Report Patient Name: LULU HAIR E : 1975 (49y 2m) Gender: F Study Date: 01/31/2025 01:29:25 PM Remote Inpatient Coder: Isabel Cameron Order Provider: JOSUE COLIN Quality: [...] Gender: F Study Date: 01/31/2025 01:29:25 PM Remote Inpatient Coder: Isabel Cameron RVS Order Provider: JOSUE COLIN [...] 2:33:26 PM CDT us Josue Colin MD IM US PROCEDURES Final Result * US VEIN DUPLEX LOWER EXTREMITY LEFT LIMITED, UNILATERAL (01/03/2025 1:15 PM CHILDREN'S AIDE) Anatomical Region Laterality Modality Vascular Left Ultrasound 01/03/2025 11:2 5 AM CHILDREN'S AIDE Narrative 01/04/2025 11:07 AM CHILDREN'S AIDE Lower Extremity Venous Report Patient Name: LULU HAIR E : 1975 (49y 1m) Gender: F Study Date: 01/03/2025 11:25:16 AM Remote Inpatient Coder: Whitney Montalvo Provider: JOSUE COLIN Quality: Adequate [...] By: Josue Colin MD 01/04/2025 10:56:22 AM CHILDREN'S AIDE Procedure Note Josue Colin MD - 01/04/2025 Lower Extremity Venous Report Patient Name: LULU HAIR E : 1975 (49y 1m) Gender: F Study Date: 01/03/2025 11:25:16 AM Remote Inpatient Coder: Whitney Montalvo Provider: JOSUE COLIN Quality: Adequate [...] By: Josue Colin MD 01/04/2025 10:56:22 AM CHILDREN'S AIDE us Josue Colin MD [facility] US PROCEDURES Final Result * Serum Hepatitis C ab (09/07/2014 11:47 AM CDT) HCV ab Non-Reacti ve Non-Reacti ve HISTORICAL RESULTS Serum 09/07/2014 11:4 7 AM CDT us Asad Martinez MD LAB BLOOD ORDERABLES Final Resul t HISTORICAL RESULTS from Last 3 Months or Most Recently Relevant to Health Maintenance Insurance [facility] H[facility]/PPO Address: [facility] [id number] [place] [address] [facility] Care Teams Motorcycle Service Technician Relationship Specialty Start Date End Date Maryjo Kerr MD [address] [facility] [address] [place] [address] PCP - General Family Practice 01/31/25 Reji Ray III, MD [address] [address] Consulting Physician Rheumatology 02/18/18
--- OUTSIDE RECORDS SUMMARY | 2025-03-03 12:25 | XMS_ITS | Referral Summary ---
Author Organization [facility] [address] Address [address] [place] [address] Phone Care Team Providers Care Seed Cleaning Manager Name Role Phone Cory MORRISON MD, Reji Garcia [facility] [phone] Maryjo Kerr MD Primary Care Provider Encounters Date Type Department Care Team Description 02/28/2025 3:00 PM CDT Office Visit [facility] Vascular and Vein Surgery [address] [place] [address] [address] [place] [phone] Amanda De León NP Symptomatic varicose veins of both lower extremities (Primary Dx) 02/28/2025 2:09 PM CDT - 02/28/2025 11:59 PM CDT Hospital Encounter [facility] Medical Office Building [address] [place] [address] [address] [place] [address] Varicose veins of leg with pain, right Discharge Disposition: Discharge to home or self care 02/01/2025 Orders Only [facility] Vascular and Vein Surgery [address] [place] [address] [address] [place] [address] Josue Colin MD 01/31/2025 2:00 PM CDT Office Visit [facility] Vascular and Vein Surgery [address] [place] [address] [address] [place] [phone] Marisol Ayala PA Varicose veins of leg with pain, left (Primary Dx); Varicose veins of leg with pain, right 01/31/2025 1:00 PM CDT - 01/31/2025 11:59 PM CDT Hospital Encounter [facility] Cardiac Testing [address] [place] [address] Varicose veins of leg with pain, bilateral Discharge Disposition: Discharge to home or self care 01/28/2025 11:08 AM MEAT BONER - 01/28/2025 11:59 PM MEAT BONER Hospital Encounter [facility] 2 Vascular [address] [facility] [address] [place] [address] Varicose veins of leg with pain, right Discharge Disposition: Discharge to home or self care 01/26/2025 Documentation [facility] Vascular and Vein Surgery [address] [place] [phone] Tejal Shearer MA 01/26/2025 Orders Only [facility] Medical [facility] Vascular at [address] [place] [phone] Josue Colin MD 01/03/2025 11:00 AM MEAT BONER - 01/03/2025 11:59 PM MEAT BONER Hospital Encounter [facility] Building [address] [place] [address] Varicose veins of leg with pain, left Discharge Disposition: Discharge to home or self care 12/31/2024 Documentation [facility] Vascular and Vein Surgery [facility] [address] [phone] Aleah Barroso, RN 12/31/2024 11:05 AM MEAT BONER - 12/31/2024 11:59 PM MEAT BONER Hospital Encounter [facility] [address] Vascular [address] [place] [address] Varicose veins of leg with pain, left Discharge Disposition: Discharge to home or self care 12/28/2024 Telephone [facility] Vascular and Vein Surgery [address] [place] [phone] Aleah Barroso, RN 12/28/2024 Orders Only [facility] Medical [facility] Vascular at [address] [place] [address] Josue Colin MD from Last 3 Months [...] on file Legal Sex Female 3:26 AM MEAT BONER Gender Identity Not on file Sexual Orientation [...] 02/28/2025 2:52 PM CDT Plan of Treatment Not on [...] Read Routine (OP Routine) 01/03/2025 1:15 PM MEAT BONER Varicose veins of leg with pain, left [...] Gender: F Study Date: 02/28/2025 02:06:50 PM Cloth Printing Inspector: Karen Grey Provider: JOSUE COLIN Quality: Adequate [...] Gender: F Study Date: 02/28/2025 02:06:50 PM Cloth Printing Inspector: Karen Grey Provider: JOSUE COLIN Quality: Adequate [...] Gender: F Study Date: 01/31/2025 01:29:25 PM Cloth Printing Inspector: Isabel Cameron Order Provider: JOSUE COLIN Quality: [...] is provided above. Electronically Signed By: Josue Coiln MD 01/31/2025 2:33:26 PM CDT Procedure Note Josue Colin MD - 01/31/2025 Lower Extremity Venous Report Patient Name: LULU HAIR E : 1975 (49y 2m) Gender: F Study Date: 01/31/2025 01:29:25 PM Cloth Printing Inspector: Isabel Cameron S Order Provider: JOSUE COLIN Quality: Adequate Ref [...] EXTREMITY LEFT LIMITED, UNILATERAL (01/03/2025 1:15 PM MEAT BONER) Anatomical Region Laterality Modality Vascular Left Ultrasound 01/03/2025 11:2 5 AM MEAT BONER Narrative 01/04/2025 11:07 AM MEAT BONER Lower Extremity Venous Report Patient Name: LULU HAIR E : 1975 (49y 1m) Gender: F Study Date: 01/03/2025 11:25:16 AM Cloth Printing Inspector: Whitney Montalvo Provider: JOSUE COLIN Quality: Adequate [...] By: Josue Colin MD 01/04/2025 10:56:22 AM MEAT BONER Procedure Note Josue Colin MD - 01/04/2025 Lower Extremity Venous Report Patient Name: LULU HAIR E : 1975 (49y 1m) Gender: F Study Date: 01/03/2025 11:25:16 AM Cloth Printing Inspector: Whitney Montalvo Provider: JOSUE COLIN Quality: Adequate Ref Provider: LIT,JOSUE PROCEDURES: Vascular Report: A non-invasive vascular imaging [...] By: Josue Colin MD 01/04/2025 10:56:22 AM MEAT BONER us Josue Colin MD [facility] US PROCEDURES Final Result * Serum Hepatitis C ab (09/07/2014 11:47 AM CDT) HCV ab Non-Reacti ve Non-Reacti ve HISTORICAL RESULTS Serum 09/07/2014 11:4 7 AM CDT us Asad Martinez MD LAB BLOOD ORDERABLES Final Resul t HISTORICAL RESULTS from Last 3 Months or Most Recently Relevant to Health Maintenance Insurance [facility] [employer] [facility] Care Teams Seed Cleaning Manager Relationship Specialty Start Date End Date Maryjo Kerr MD [address] [facility] 2 [place] [address] PCP - General Family Practice 01/31/25 Reji Ray III, MD [address] [address] Consulting Physician Rheumatology 02/18/18
== END 2025-03-03 11:38 | disposition home or self-care (01) ==
PROVIDERS: PCP Family Medicine; Visit Provider Family Medicine
DX: R92.8 Other abnormal and inconclusive findings on diagnostic imaging of breast (principal)
CPT/HCPCS: 76641; 77061; 77065; G0279

== ENCOUNTER 2025-06-01 14:44 | Outpatient (CLI) | payer OTHER, SELFPAY ==
--- OUTSIDE RECORDS SUMMARY | 2025-06-01 14:48 | XMS_ITS | Clinical Summary ---
Author Organization [facility] [address] [facility] Address [address] [place] [address] Phone Care Team Providers Care Vp Platforms Name Role Phone Cory MORRISON MD, Reji Celis [phone] Maryjo Kerr MD Primary Care Provider Allergies [...] long-term (current) use of medicat ions 02/18/2018 Surgical History Surgery Date Site/Laterality Comments CHOLECYSTECTOMY gallbladder removed Social History Tobacco Use Types Packs/Day Years Used Date Smoking Tobacco: Never Alcohol Use Standard Drinks/Week Comments Yes 0 (1 standard drink = 0.6 oz pur e alcohol) Comments Unknown Sex and Gender Information Value Date Recorded Sex Assigned at Not on file Legal 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 Gender Identity Not on file Sexual Orientation [...] 2:52 PM CDT Height 160 cm (5' 3) 02/28/2025 2:52 PM CDT Body Mass Index [...] Procedure Name Priority Date/Time Associated Diagnosis Comments SERUM HEPATITIS C AB Routine 09/07/2014 11:47 AM CDT from Last 3 Months or Most Recently Relevant to Health Maintenance Results * Serum Hepatitis C ab (09/07/2014 11:47 AM CDT) HCV ab Non-Reacti ve Non-Reacti ve HISTORICAL RESULTS Serum 09/07/2014 11:4 7 AM CDT us Asad Martinez MD LAB BLOOD ORDERABLES Final Resul t HISTORICAL RESULTS from Last 3 Months or Most Recently Relevant to Health Maintenance Insurance [facility] Care Teams Vp Platforms Relationship Specialty Start Date End Date Maryjo Kerr MD [address] [facility] [address] [place] [address] PCP - General Family Practice 01/31/25 Reji Ray III, MD [address] [place] [address] Consulting Physician Rheumatology 02/18/18
--- OUTSIDE RECORDS SUMMARY | 2025-06-01 14:48 | XMS_ITS | Clinical Summary ---
Author Organization [facility] Address [address] [facility] [place] [address] Care Team Providers Care Security Guard Name Role Phone Cachorro Abraham MD Unavailable [phone] Maryjo Kerr MD Primary Care Provider Source Comments [facility] [employer],non-owned Affiliates and Associated Physician Practices is amultiple site organization consisting of ambulatory clinics and hospital sitesin [place], [place], [place] and [place]. This disclosure is being madepursuant to the Care Everywhere program and may not contain all information available regarding this patient. Last updated 18.[facility] Allergies No known active allergies Medications * Be aware that medications may not be up to date on this document. Alwaysverify current medications with the patient. PARAGARD INTRAUTERINE COPPER IUD by Intrauterine route as directed Inserted 08/15/2016. Lot: [id number] Exp date: 02/22/2022. [facility]: [id number] Active amLODIPine (NORVASC) 5 MG tablet Take 1 (one) tablet by mouth once daily 05/28/20 20 Active drospirenone-et hinyl estradiol (JEOVANNY 28) 3-0.03 MG tablet Take 1 (one) tablet by mouth once daily 2 packet 09/13/20 21 Active Additional Information Patient not taking.Reported on 09/30/2024 phentermine (Adipex-P) 37.5 MG tablet Take 1 (one) tablet by mouth once daily 30 tablet 2 10/31/20 22 Active Additional Information Patient not taking.Informant: Other, Reported on 09/30/2024 oxybutynin CR 24hr (Ditropan-XL) 10 MG tablet Take 1 (one) tablet by mouth once daily 90 tablet 4 10/31/20 22 Active Additional Information Patient not taking.Reported on 09/30/2024 Magnesium Oxide -Mg Supplement 400 (240 Mg) MG Take 1 (one) tablet by mouth once daily 01/29/20 24 Active amphetamine-dex troamphetamine (Adderall) 20 MG tablet Take 1 (one) tablet by mouth every morning Active MAGNESIUM PO 200 mg Active testosterone 2 mg/gm cream 2 mg/gm CREA compound Apply to affected area once daily Active oxyCODONE-aceta minophen (Percocet) 5-325 MG tabletIndicatio ns:Biceps tendinitis of right shoulder Take 1 (one) tablet to 2 (two) tablets by mouth every 4 hours as needed for Pain 42 tablet 08/23/20 24 Active Additional Information Patient not taking.Reported on 09/30/2024 ciclopirox (Penlac) 8 % solution APPLY 1 APPLICATION TOPICALLY EVERY DAY AT BEDTIME 07/22/20 24 Active traMADol (Ultram) 50 MG tablet Take 1 (one) tablet by mouth 2 times daily as needed For pain. 07/15/20 24 Active tretinoin (Retin-A) 0.1 % cream APPLY ONE APPLICATION TOPICALLY EVERY DAY AT BEDTIME 07/14/20 24 Active celecoxib (CeleBREX) 200 MG capsule TAKE 1 CAPSULE BY MOUTH ONCE DAILY NEEDED WITH FOOD 30 capsule 05/13/20 25 Active celecoxib (CeleBREX) 200 MG capsule TAKE 1 CAPSULE BY MOUTH ONCE DAILY NEEDED WITH FOOD 30 capsule 04/13/20 25 2024 Discontinued Active Problems Problem Noted Date Diagnosed Date Symptomatic varicose veins of both lower extremi ties 07/21/2024 Well woman exam with routine gynecological exam 08/16/2020 Overview (10/31/2022): Complaints: weight gain, OAB which is well controlled with Ditropan Contraception: Paragard Pap Results 2020: NILM 2018: NILM Mammogram Results N/a Assessment & Plan (10/31/2022 5:56 PM BLOWER AND COMPRESSOR ASSEMBLER): Reviewed cervical cancer pathophysiology as well as [...] Encounters Date Type Department Care Team Description 05/13/2025 Refill [facility] - Orthopedic Surgery [address] [place] [phone] Seth Singh, WEAVING INSPECTOR-TECHNICAL SPEC Refill Request 04/12/2025 Refill [facility] - Orthopedic Surgery [address], [address] [place] [address] Seth Singh, WEAVING INSPECTOR-TECHNICAL SPEC Refill Request 03/12/2025 Refill [facility] - Orthopedic Surgery [address], [address] [place] [address] Seth Singh APRN-TECHNICAL SPEC Refill Request from Last 3 Months Immunizations Immunization Administration Dates Next Due TDAP (7yrs+) 07/11/2011 [...] Recorded Patient Health Questionnaire-2 Score 0 02/01/2025 Comments No Sex and Gender Information Value Date Recorded Sex Assigned at Not on file Legal Sex Female 9:48 AM BLOWER AND COMPRESSOR ASSEMBLER Gender Identity Not on file Sexual Orientation [...] 65.8 kg (145 lb) 12/24/2024 1:31 PM BLOWER AND COMPRESSOR ASSEMBLER Height 160 cm (5' 3) 12/24/2024 1:31 PM BLOWER AND COMPRESSOR ASSEMBLER Body Mass Index 25.69 12/24/2024 1:31 PM BLOWER AND COMPRESSOR ASSEMBLER Plan of Treatment Health Maintenance Due Date [...] 07/11/2021 07/11/2011 COVID-19 VACCINE ( season) 2024 INFLUENZA VACCINE (Season Ended) 2025 SCREENING FOR DIABETES 08/16/2027 , 06/02/2024, 02/05/2017, Additional history exists PAP with HPV 10/31/2027 10/31/2022, 08/25, 06/12/2018, Additional history exists ZOSTER VACCINE (1 [...] this topic Medical Devices Implanted Type Area Guide Delegate Device Identifier Shelf Expiration Date Model / Serial / Lot Boody Sut Jggrknt Mxbrd 2.9mm 2 Ld Sft Implanted:Qty : 1 on 08/23/2024 by Axel Santana MD at [facility] Right: Shoulder [employer] [id number] 02/27/2029 [id number] / / [id number] Procedures Procedure Name Priority Date/Time Associated Diagnosis Comments PAP IG LB RFLX HPV APTIMA ASCU Routine 10/31/2022 4:21 PM BLOWER AND COMPRESSOR ASSEMBLER Well woman exam with routine gynecological exam HEMOGLOBIN A1C Routine 02/05/2017 9:22 AM CDT Fatigue due to exposure, initial encounter from Last 3 Months or Most Recently Relevant to Health Maintenance Results * PAP IG LB RFLX HPV APTIMA ASCU (10/31/2022 4:21 PM BLOWER AND COMPRESSOR ASSEMBLER) Diagnosis [facility] INSURANCE BILL Comment:NEGATIVE FOR INTRAEP ITHELIAL LESION OR MALIGNANCY. Specimen Adequacy [facility] INSURANCE BILL Comment: Satisfactory for evaluation. Endocervical and/or squamous metaplastic cells (endocervical component) are present. Clinician Provided ICD10 [facility] INSURANCE BILL Comment:Z01.419 Performed by [facility] INSURANCE BILL Comment:Felicita Williamson, Cytot echnologist (ASCP) Comment . [facility] INSURANCE BILL Note [facility] INSURANCE BILL Comment: The Pap smear is a screening test designed to aid in the detection of premalignant and malignant conditions of the uterine cervix. It is not a diagnostic procedure and should not be used as the sole means of detecting cervical cancer. Both false-positive and false-negative reports do occur. . IGLBP CPT Code Automation [facility] INSURANCE BILL Comment: This liquid based ThinPrep(R) pap test was screened with the use of an image guided system. Note [facility] INSURANCE BILL Comment: The HPV DNA reflex criteria were not met with this specimen result therefore, no HPV testing was performed. . Pathology/Cytolog y PART OF UTERINE CERVIX / Unknown 10/31/2022 4:21 PM BLOWER AND COMPRESSOR ASSEMBLER 11/01/2022 Narrative [facility] INSURANCE BILL - 11/08/2022 1:08 PM BLOWER AND COMPRESSOR ASSEMBLER No. of containers..01 ThinPrep Vial Resulting Agency Comment Lab Testing performed at: [facility] [phone] [place] Cachorro Abraham MD LAB - PATHOLOGY/CYTOLOGY ORDERA BLES Final Result [facility] INSURANCE BILL [address] [place] [address] * (ABNORMAL) HEMOGLOBIN A1C (HgbA1C) (02/05/2017 9:22 AM CDT) Hemoglobin A1c 5.7(H) 4.8 - 5.6 % [facility] INSURANCE BILL Comment: . Pre-diabetes: 5.7 - 6.4 Diabetes: >6.4 Glycemic control for adults with diabetes: <7.0 Whole Blood BLOOD SPECIMEN WITH EDTA / Unknown 02/05/2017 9:22 AM CDT 02/05/2017 Narrative Resulting Agency Comment [facility] [address] [facility] [id number] Zeyad Cm Jr., MD LAB - CHEMISTRY ORDER ALYSE Final Result [facility] INSURANCE BILL [address] [place] [address] from Last 3 Months or Most Recently Relevant to Health Maintenance Insurance [facility] Advance Directives * FULL RESUSCITATION (Latest Code Status on File) Date Activated Date Inactivated Comments 07/10/2011 1:17 PM 07/14/2011 12:32 AM Care Teams Security Guard Relationship Specialty Start Date End Date Maryjo Kerr MD [address] [place] [address] PCP - General 01/17/22 Cachorro Abraham MD [address] [place] [phone] Obstetrics and Gynecology 08/21/20
--- OUTSIDE RECORDS SUMMARY | 2025-06-01 14:48 | XMS_ITS | Referral Summary ---
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 Gender Identity Not on file Sexual Orientation [...] Most Recently Relevant to Health Maintenance Insurance [facility] HMO/PPO Address: [facility] [id number] [place] [phone] [facility] Care Teams Personal Injury Attorney Relationship Specialty Start Date End Date Maryjo Kerr MD [address] [facility] [address] [place], [place] [id number] PCP - General Family Practice 01/31/25 Reji Ray III, MD [address] [place] [address] Consulting Physician Rheumatology 02/18/18
[2025-06-01 21:14] LABS: Alanine Aminotransferase 39 U/L (6-35); Albumin Level 4.8 g/dL (3.5-5.1); Alkaline Phosphatase 55 U/L (38-126); Anion Gap 7 mmol/L (4-12); Aspartate Amino Transferase 43 U/L (14-36); Bilirubin,Total 0.5 mg/dL (0.2-1.3); Blood Urea Nitrogen 30 mg/dL (7-17); Calcium 9.5 mg/dL (8.4-10.2); Carbon Dioxide 30 mmol/L (22-30); Chloride 101 mmol/L (98-107); Estimated Glomerular Filt Rate > 60; Glucose 96 mg/dL (65-110); Potassium 4.3 mmol/L (3.4-5.0); Sodium 138 mmol/L (137-145); Total Protein 7.7 g/dL (6.3-8.2)
[2025-06-01 21:53] LABS: Hemoglobin A1C 5.5 % (<5.7)
== END 2025-06-01 14:45 | disposition home or self-care (01) ==
LOC: ANHGOSHLAB 14:45
PROVIDERS: PCP Family Medicine; Visit Provider Family Medicine
DX: R73.03 Prediabetes (principal); I10 Essential (primary) hypertension
CPT/HCPCS: 36415; 80053; 83036

== ENCOUNTER 2025-07-21 14:15 | Outpatient (RCR) | payer OTHER, SELFPAY ==
--- NOTE | 2025-06-27 10:16 | OTOPEVAL1 ---
Assessment and note entered by Rosalio Cuevas, ALEXI/Percy, CHT Evaluation Information Assessment Status Evaluation Diagnosis Primary osteoarthritis, Pain in right fingers, Pain in left fingers ICD-10 Condition Codes (OT) Pain in right hand M79.641,Pain in left hand M79. 642 Subjective Information Patient is right handed. She reports pain in the base of her thumbs, left worse than right. She reports my hands are constantly busy. 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 She also power lifts. She has purchased hooks for around her wrists to help with her trimmer and reinforcer when power lifting. She reports she has modified how she uses her hands because of the thumb pain. Pain with opening jars, household tasks, cooking, etc. She reports her pain is severe. Reported Pain Level Pain Score 9,7: Self Report Assessment OT Clinical Summary Patient referred to OT with bilateral hand pain. Signs and symptoms are consistent with 1st CMC OA. Patient presents with pain, weakness, and reduced functional trimmer and reinforcer and pinch with bilateral hands during ADLs, work, and working out. Today a custom hand based (L) thumb spica orthosis was fabricated to support and rest the thumb CMC joint . Initiated education on joint protection techniques and issued active ROM of the affected joints. Continued skilled OT indicated for use of modalities, manual therapy, continued joint protection education, fabrication of a (L) thumb spica orthosis, orthotic adjustments PRN, therapeutic exercise, and HEP progression to facilitate reduced hand pain and improved functional use. Plan of Care Interventions Therapeutic Exercise,Manual Therapy,Neuro Re- education,Therapeutic Activities,Hot Pack/Cold Pack,Check Out for Orthotic/Prosthetic,Ultrasound, Paraffin OT Services Indicated Yes Treatment Frequency and 2x/week for 8 visits Duration These treatments will address the objective and functional deficits as defined above. The patient will be advanced safely and appropriately in order for the patient to progress towards his/her prior level of function. Additional exercises will be introduced and as well as a comprehensive home exercise program upon discharge, if needed, ?to ensure carryover of functional gains achieved in the clinic. This treatment plan has been reviewed and agreement upon by the patient.
--- NOTE | 2025-06-27 10:16 | OPREHPOC ---
Outpatient Therapy Plan of Care This is a Multidisciplinary Plan of Care that may contain components documented by all disciplines (PT, OT, and ST.) OT Problem 1 OT Problem #1 Knowledge Deficit OT Goal 1 Goal / Goal Update 1. Patient to be independent with instructed materials. 2. Patient to adhere to splint wearing schedule. Target Visit 8 OT Problem 2 OT Problem #2 Pain OT Goal 1 Goal / Goal Update 1. Patient to report reduced bilateral thumb pain to 4/10 or less with ADLs. Target Visit 8 OT Problem 3 OT Problem #3 Impaired Strength OT Goal 1 Goal / Goal Update Improve functional strength for ADLs as measured by: 1. Patient to be able to progress functional wrist strengthening to 2 lbs in all planes x10 reps without pain. 2. Patient to be able to progress functional crab picker/ pinch strengthening to yellow putty to x5 min each hand without pain. Target Visit 8
--- NOTE | 2025-07-22 08:03 | OTOPDC ---
Assessment and note entered by Rosalio Cuevas, OTR/Percy, CHT OT D/C Notification 07/22/25 OT Clinical Summary Patient referred to OT with bilateral hand pain, consistent with 1st CMC OA bilaterally. Patient initially responded well to therapy. Bilateral hand based thumb spica splints were fabricated to rest and support the CMC joints. She attended 5 sessions and reports that therapy is not helping. She is requesting to be discharged at this time. D/C OT with patient independent with instructed materials. No formal reassessment completed due to patient requesting to cancel remaining appointments and to be discharged. OT Services Indicated No
== END 2025-07-22 10:02 | disposition home or self-care (01) ==
LOC: ANHOT 14:15
PROVIDERS: PCP Family Medicine; Visit Provider Family Medicine
DX: M19.049 Primary osteoarthritis, unspecified hand (principal); M79.644 Pain in right finger(s); M79.645 Pain in left finger(s)
CPT/HCPCS: 97018; 97110; 97140; 97165; L3913

== ENCOUNTER 2025-07-22 16:10 | Outpatient (CLI) | payer OTHER, SELFPAY ==
[2025-07-22 18:24] LABS: Hematocrit 39.4 % (37.0-47.0); Hemoglobin 12.6 g/dL (12.0-15.0); Immature Granulocyte Percent A 0.4 % (0-0.5); Lymphocytes Absolute Auto 2.65 K/mm3 (0.9-3.2); Mean Corpuscular HGB Conc 32.0 g/dl (32-36); Mean Corpuscular Hemoglobin 30.4 pg (26-34); Mean Corpuscular Volume 94.9 fl (80-100); Nucleated Red Blood Cells Absolute Auto 0.000 K/mm3 (0.0-0.012); Nucleated Red Blood Cells Perc 0.0 % (0.0-0.2); Platelet Count Result 401 k/mm3 (150-375); Red Blood Count 4.15 M/mm3 (4.2-5.4); White Blood Count 9.3 K/mm3 (4.5-10.0)
[2025-07-22 19:09] LABS: Alanine Aminotransferase 31 U/L (6-35); Albumin Level 4.2 g/dL (3.5-5.1); Alkaline Phosphatase 49 U/L (38-126); Anion Gap 7 mmol/L (4-12); Aspartate Amino Transferase 48 U/L (14-36); Bilirubin,Total 0.3 mg/dL (0.2-1.3); Blood Urea Nitrogen 24 mg/dL (7-17); Calcium 8.8 mg/dL (8.4-10.2); Carbon Dioxide 29 mmol/L (22-30); Chloride 99 mmol/L (98-107); Estimated Glomerular Filt Rate 51; Glucose 87 mg/dL (65-110); Magnesium 2.0 mg/dL (1.6-2.3); Potassium 3.9 mmol/L (3.4-5.0); Sodium 135 mmol/L (137-145); Total Protein 6.8 g/dL (6.3-8.2)
[2025-07-24 08:07] LABS: C-Reactive Protein, Cardiac 0.56 mg/L (0.00-3.00)
[2025-07-27 15:09] LABS: ANA by IFA Rfx Titer/Pattern Positive (.)
== END 2025-07-22 16:11 | disposition home or self-care (01) ==
LOC: ANHGOSHLAB 16:10
PROVIDERS: PCP Family Medicine; Visit Provider Nurse Practitioner Family
DX: M25.50 Pain in unspecified joint (principal)
CPT/HCPCS: 36415; 80053; 83735; 85025; 85652; 86038; 86141; 86430

== ENCOUNTER 2025-09-02 11:09 | Outpatient (CLI) | payer OTHER, SELFPAY ==
--- NOTE | ~2025-09-02 | US_ITS ---
EXAMINATION: US breast LT limited INDICATION: 49-year old female; BI-RADS 3, follow-up probably benign left breast masses. COMPARISON: 03/03/2025 TECHNIQUE: Targeted sonographic evaluation of the areas of concern in the LEFT breast was completed. FINDINGS: A 0.4 cm Hypoechoic mass with echogenic center at 12:00 location 1 cm from the nipple redemonstrated is smaller in size compatible with a benign lesion. A 0.3 cm Hypoechoic circumscribed mass at 1:00 location 3 cm from the nipple redemonstrated is unchanged. IMPRESSION: Probably benign LEFT breast mass at 1:00, 3 cm from the nipple is unchanged. Benign left breast mass at 12:00. No further investigation necessary RECOMMENDATION: 6 MONTH FOLLOW-UP DIAGNOSTIC BILATERAL MAMMOGRAPHY AND LEFT BREAST ULTRASOUND. BI-RADS 3, PROBABLY BENIGN Reviewed, dictated and finalized at location B.
== END 2025-09-02 11:10 | disposition home or self-care (01) ==
LOC: ANHFOHIMG 11:09
PROVIDERS: PCP Family Medicine; Visit Provider Family Medicine
DX: R92.8 Other abnormal and inconclusive findings on diagnostic imaging of breast (principal)
CPT/HCPCS: 76642